=== PATIENT | male | born 1940 | race Caucasian/White ===

== ENCOUNTER 2023-05-21 10:15 | Inpatient (IN) | payer MEDICARE, SELFPAY ==
[2023-05-21] VITALS (14 sets, daily range): BP systolic 107–191; BP diastolic 52–86; PULSE 72–121; RESP 18–33; TEMP 36.6–39.8; O2SAT 92–97; BMI 26.6
--- NOTE | ~2023-05-21 | CT_ITS ---
EXAMINATION: CT CHEST, ABDOMEN AND PELVIS WITH CONTRAST CLINICAL INFORMATION: Abdominal pain. Shortness of breath. COMPARISON: Chest x-ray June 05, 2015 TECHNIQUE: Multidetector volumetric CT imaging of the chest, abdomen and pelvis was obtained after the administration of 85 mL of intravenous Omnipaque 350 without immediate adverse reactions. Coronal and sagittal reformatted images are performed at CT scanner [This CT examination was performed using dose optimization techniques as appropriate, variously including the following: *Automated exposure control *Adjustment of mA and/or kV according to patient size (this includes techniques or standardized protocols for targeted exams where dose is matched to indication/reason for exam; i.e. extremities or head) *Use of iterative reconstruction technique] DLP: 830 mGy-cm. FINDINGS: CT CHEST: Lungs: The lungs are clear with no evidence of inflammation or nodules. Mediastinum: Lobular enlargement of the thyroid which extends substernal bilaterally, right larger than left. No significant lymphadenopathy. Calcified lymph nodes in the pretracheal retrovascular space and right hilum consistent with old granulomatous disease. Heart size is normal. No pericardial effusion. There are vascular calcifications of aorta. No aneurysm of aorta. Pleura: There is no pleural effusion. No pleural mass or thickening. Axilla: No lymphadenopathy. CT ABDOMEN AND PELVIS: Liver, Gallbladder and Biliary Tree: The liver is normal in size, shape, and attenuation. No focal hepatic lesion or biliary ductal dilatation is present. Tiny peripheral calcification at the fundus of the gallbladder appears unremarkable although gallbladder could be small stones. No edema around the gallbladder. No bile duct dilatation. Pancreas: No acute change of the pancreas. No mass. No pancreatic duct dilatation. Spleen: Spleen normal in size and contour. No focal lesion. Adrenal Glands: Left adrenal nodule measuring 1.8 cm. Density measurement on postcontrast imaging 74 Hounsfield units 1 cm right adrenal nodule. Density measurement of 65 Hounsfield units. Kidneys and Ureters: 1 mm nonobstructive stone lower pole right kidney. 3 mm nonobstructive stone upper pole left kidney. No ureteral calculi. No hydronephrosis. Small cortical hypodensity lower pole left kidney likely renal cysts. No follow-up imaging is recommended for simple renal cyst. Bladder: Unremarkable. Gastrointestinal Tract: There are scattered diverticula of the colon. There is no diverticulitis. There is no bowel wall thickening /edema. There is no bowel obstruction. There is a moderate volume of stool in the colon. The appendix is nonvisualized . The small bowel loops are unremarkable. The stomach is normal. There is no hiatal hernia. Mesentery: No focal inflammation. No free fluid. No free air. Abdominal Wall: Fat-containing bilateral inguinal hernia. Lymph Nodes: Normal. Vascular: Vascular calcification of aorta and iliac arteries. No aneurysm. Pelvic Viscera: Prostate enlarged measuring 5.4 cm transverse. Osseous Structures: Unremarkable. CT/CT abdomen pelvis w IV con IMPRESSION: 1. No acute abnormality of the chest, abdomen or pelvis. 2. Bilateral adrenal nodules. These can be further assessed with nonemergent CT adrenal study. 3. Diverticulosis of colon. No acute abnormality of the bowel. 4. Enlarged thyroid. 5. Small nonobstructive bilateral renal stones. 6. Calcified lymph nodes in the mediastinum and right hilum consistent with old granulomatous disease.
--- NOTE | 2023-05-21 10:33 | ECG_ITS ---
Test Reason : WEAKNESS Blood Pressure : / mmHG Vent. Rate : 096 BPM Atrial Rate : 096 BPM P-R Int : 166 ms QRS Dur : 124 ms QT Int : 374 ms P-R-T Axes : 049 -31 015 degrees QTc Int : 472 ms Normal sinus rhythm Left anterior fascicular block Right bundle branch block Abnormal ECG When compared with ECG of 05-JUN-2015 17:29, Heart rate has increased Referred By: Generic ED Physician Electronically Signed By:STEVEN WANG MD
--- NOTE | 2023-05-21 11:06 | ED_ITS ---
HPI - General Adult General Chief complaint: General Medical Stated complaint: CHR UTI,INCR LETHARGY,DIFF URINATION, PER EMS Time Seen by Provider: 05/21/23 10:57 Source: patient and family Mode of arrival: ambulatory Limitations: no limitations History of Present Illness HPI narrative: This is an 82-year-old male history of recurrent UTIs ( hx of infection w/ actinomyces), graves disease, YEHUDA, GERD, cout, hld, bph. HTN, CVA presenting with fatigue, malaise, weakness, lightheadedness/dizziness, diarrhea, abdominal pain x2 days. Patient states that this all started after he had an episode of diarrhea on Saturday completely liquid diarrhea, foul smelling, patient reports he was recently on amoxicillin for a long period of time/6 months due to recurrent urinary infections. Patient reports he just does not feel right. Has subjective fevers and chills. Also reporting some burning with urination and dark urine. Patient reports last night he had an episode of vomiting, and has been having episodes of nausea. Related Data Home Medications Medication Instructions Recorded Confirmed acetaminophen 325 mg tablet 650 mg PO Q6H PRN Pain 05/21/23 05/21/23 aluminum-mag hydroxide-simethicone 10 ml PO QID PRN GI UPSET 05/21/23 05/21/23 200 mg-200 mg-20 mg/5 mL oral susp atorvastatin 20 mg tablet 20 mg PO BEDTIME 05/21/23 05/21/23 fluticasone propionate 50 1 spray intranasal DAILY 05/21/23 05/21/23 mcg/actuation nasal spray,suspension tamsulosin 0.4 mg capsule 0.4 mg PO BEDTIME 05/21/23 05/21/23 warfarin 5 mg tablet (Jantoven) 5 mg PO SUTUWETHFRSA@1800 05/21/23 05/21/23 warfarin 5 mg tablet (Jantoven) 7.5 mg PO MO@1800 05/21/23 05/21/23 Allergies Allergy/AdvReac Type Severity Reaction Status Date / Time No Known Allergies Allergy Unverified 03/31/20 18:59 [No Known Allergies*] N.K.D.A. Allergy Unknown Uncoded 08/12/15 00:00 Review of Systems 2 Review of Systems: Constitutional : No Weight loss, No Fever, No Chills, No Fatigue, No Malaise ENT/Mouth : No sore throat, No Rhinorrhea Eyes: No Eye Pain, No Swelling, No Redness Cardiovascular : No Chest Pain, No SOB, No Dyspnea on Exertion, No Orthopnea, No Edema, No Palpitations Respiratory : No Cough, No Sputum, No Wheezing Gastrointestinal : + Nausea, + Vomiting, No Diarrhea, No Constipation, + abdominal Pain, No Hematochezia, No Melena Genitourinary : No Dysuria, No Urinary Frequency, No Hematuria, Musculoskeletal : No joint pain, No Myalgias, No Joint Swelling Skin : No Skin Lesions, No rash Neuro : No Weakness, No Numbness, No Dizziness, No Headache Psych : No Anxiety/Panic, No Depression All other systems reviewed and are negative Yes all other systems are reviewed and are negative [facility] Past Medical History Attestation statement: The following information was validated with the patient. Source: old records reviewed and nursing notes reviewed Social History Social History Advance Directives: No Advance Directives Information Provided: No Physical Exam ED Vital Signs: Vital Signs - 24 hr 05/21/23 10:28 05/21/23 11:21 05/21/23 12:04 Temperature 99.5 F 97.8 F 103.6 F H Pulse Rate 97 97 95 Respiratory Rate 27 H 29 H 33 H Blood Pressure 169/81 H 133/86 167/75 H Pulse Oximetry 97 95 97 Oxygen Delivery Method Room Air Room Air Room Air 05/21/23 15:04 05/21/23 15:25 05/21/23 15:51 Temperature 98.1 F 98.1 F Pulse Rate 80 79 Respiratory Rate 18 19 Blood Pressure 122/64 120/63 Pulse Oximetry 94 95 Oxygen Delivery Method Room Air Room Air 05/21/23 16:21 05/21/23 16:36 Temperature Pulse Rate 74 72 Respiratory Rate 22 H 24 H Blood Pressure 122/67 116/61 Pulse Oximetry 96 97 Oxygen Delivery Method Room Air Room Air BMI result Body Mass Index 26.6 Patient is noted to be tachypneic, however he is reporting nausea at this time Appearance: Alert.? Oriented X3.? No acute distress.? Head: Normocephalic, atraumatic, no step-offs or deformities Eyes: Pupils equal, round and reactive to light.? Neck: Normal inspection.? Neck supple.? CVS: Normal heart rate and rhythm.? Pulses normal.? Respiratory: No respiratory distress.? Breath sounds normal.? Abdomen: Soft and + diffusely mildly tender .? Skin: Skin warm and dry.? Normal skin color.? Normal skin turgor.? Extremities: No lower extremity edema.? No calf ttp. 5/5 strength to bilateral upper and lower extremities Neuro: Oriented X 3.? No motor deficit.? No sensory deficit. CN 2-12 intact Course Reevaluation(s) Reevaluation #1: Patient's CBC with a leukopenia of 1.2 ( patient states usually around 2) , elevated rbc's 6.05 likely secondary to dehydration/hemoconcentration, hemoglobin of 15.9 hematocrit of 47.6 again likely secondary to hemoconcentration. Low platelets of a 108 noted. Patient is also noted to have low neutrophils 30.0. At this time will place patient on neutropenic precautions. Patient's sodium low 133 likely secondary to poor p.o. intake/dehydration. BUN slightly elevated 23 and creatinine 1.32 likely secondary to poor p.o. intake/dehydration or from GI losses. Urine CT abdomen pelvis and GI studies pending. ANC showing severe neutropenia Time: 11:48 Reevaluation #2: Reached out to hemonc who will consult if needed. Time: 12:11 Reevaluation #3: Delay in obtaining results from imaging secondary to a delay with [facility]. Will continue to monitor Time: 16:12 Additional Reevaluation(s): Sign out to [facility] pending imaging and UA Medications Administered Discontinued Medications Generic Name Dose Route Start Last Admin Trade Name Rayrayq PRN Reason Stop Dose Admin Acetaminophen 975 mg 05/21/23 12:02 05/21/23 12:18 Acetaminophen 325 Mg Tablet PO 05/21/23 12:03 975 mg ONCE ONE Administration Ceftriaxone Sodium 1 gm/ 50 mls @ 100 mls/hr 05/21/23 11:06 05/21/23 15:04 Sodium Chloride IV 05/21/23 11:35 Infused ONCE ONE Infusion Sodium Chloride 1,000 mls @ 999 mls/hr 05/21/23 11:15 05/21/23 15:25 Ns IV 05/21/23 12:15 Not Given .Q1H1M LILI Vancomycin HCl 2,000 mg in 500 mls @ 250 mls/hr 05/21/23 12:02 05/21/23 15:00 Vancomycin/Ns IV 05/21/23 14:01 Infused ONCE ONE Infusion Sodium Chloride 2,526 mls @ 2,526 mls/hr 05/21/23 12:02 05/21/23 15:28 Ns 30 ml/kg infuse over 1 hr (2526 ml) 05/21/23 13:01 Infused IV Infusion .Q1H STA Iohexol 100 ml 05/21/23 12:56 05/21/23 12:57 Iohexol 350 Mg/Ml 100 Ml Infus..Btl IV 05/21/23 12:57 85 ml ONCE ONE Administration Medical Decision Making Medical Decision Making [facility] Narrative: 1135 82 yo male presents w/ weakness, dizziness, diarrrhea, UTI sx X few days worsening. PE diffuse abd tenderness Concerns for UTI versus cystitis versus viral illness vs orthostatic hypotension vs bacterial diarrhea vs cdiff vs dehydration. Will rule out metabolic derangements. Unlikely acute abdomen, obstruction, appendicitis, diverticulitis, pancreatiti, stroke, posterior stroke Plan at this time labs, imaging, urine. At this time infection is suspected will give antibiotics, fluids. Differential Diagnosis Differential Diagnoses: The differential diagnosis associated with the presentation includes Concerns for UTI versus cystitis versus viral illness vs orthostatic hypotension vs bacterial diarrhea vs cdiff vs dehydration. Will rule out metabolic derangements. Unlikely acute abdomen, obstruction, appendicitis, diverticulitis, pancreatiti, stroke, posterior stroke Admission/Observation Consideration of admission/observation: Escalation of care including admission/observation considered Likely Lab Data MDM Lab Attestation statement: I reviewed the patient's lab results. 05/21/23 11:02 05/21/23 11:02 Labs: Lab Results 05/21/23 Range/Units 11:02 WBC 1.2 L (4.8-10.8) X10*3/uL RBC 6.05 H (4.60-5.80) X10*6/uL Hgb 15.9 (14.0-18.0) g/dl Hct 47.6 (42.0-52.0) % MCV 78.7 L (80.0-98.0) fL MCH 26.3 L (27.0-33.0) pg MCHC 33.4 (31.0-36.0) g/dl RDW 14.0 (11.0-16.0) % Plt Count 108 L (160-400) X10*3/uL MPV 8.7 L (9.4-12.4) fL Immature Gran % (Auto) 0.8 H (0.0-0.4) % Neut % (Auto) 30.0 L (45-73) % Lymph % (Auto) 36.7 (20-40) % [place] % (Auto) 32.5 H (2-11) % Eos % (Auto) 0.0 (0-4) % Baso % (Auto) 0.0 (0-2) % Lymph # (Auto) 0.4 L (1.2-4.9) X10*3/uL [place] # (Auto) 0.4 (0.1-1.2) X10*3/uL Eos # (Auto) 0.0 (0.0-0.4) X10*3/uL Baso # (Auto) 0.0 (0.0-0.2) X10*3/uL Abs Immat Gran (auto) 0.01 (0.00-0.03) X10*3/uL Absolute Neuts (auto) 0.4 L (2.0-8.3) x10*3/uL Absolute Nucleated RBC 0.000 (0.0-0.012) X10*3/uL Nucleated RBC % (auto) 0.0 (0.0-0.2) /100WBC Smear Tech's Comments VERIFIED Sodium 133 L (135-145) mmol/L Potassium 4.0 (3.3-5.1) mmol/L Chloride 99 (96-108) mmol/L Carbon Dioxide 23 (22-29) mmol/L Anion Gap 15 (12-20) BUN 23 H (9-16) mg/dL Creatinine 1.32 (0.5-1.4) mg/dL Estim Creat Clear Calc 46.0 Estimated GFR 52 Random Glucose 111 (60-115) mg/dL Lactic Acid 1.5 (0.5-2.0) mmol/L Calcium 9.3 (8.4-10.2) mg/dL Magnesium 2.4 (1.6-2.6) mg/dL Total Bilirubin 0.9 (0.0-1.0) mg/dL AST 18 (5-37) U/L ALT 10 (0-40) U/L Alkaline Phosphatase 133 H (39-117) U/L Total Protein 8.1 H (6.5-8.0) g/dL Albumin 4.1 (3.5-5.0) g/dL Lipase 29 (8-78) U/L Critical Care Time Critical Care Time Critical Care Time: Yes Total Critical Care Time: 45 Attestation: I attest to this time spent taking care of the patient, obtaining history, physical, reviewing labs, imaging, speaking to my attending, speaking to specialist. Discharge Plan Discharge Clinical Impression: Neutropenia, Nausea & vomiting, Acute UTI, Abdominal pain Patient Disposition: Admitted As Inpatient
[2023-05-21 11:08] LABS: Hematocrit 47.6 % (42.0-52.0); Hemoglobin 15.9 g/dl (14.0-18.0); Imm Gran Abs Auto 0.01 X10*3/uL (0.00-0.03); Imm Gran Pct Auto 0.8 % (0.0-0.4); Lymphocytes Absolute Auto 0.4 X10*3/uL (1.2-4.9); Lymphocytes Percent Auto 36.7 % (20-40); MANUAL DIFF FLAG SCAN; Mean Corpuscular HGB Conc 33.4 g/dl (31.0-36.0); Mean Corpuscular Hemoglobin 26.3 pg (27.0-33.0); Mean Corpuscular Volume 78.7 fL (80.0-98.0); Mean Platelet Volume 8.7 fL (9.4-12.4); Monocytes Absolute Auto 0.4 X10*3/uL (0.1-1.2); Monocytes Percent Auto 32.5 % (2-11); Neutrophils Absolute Auto 0.4 x10*3/uL (2.0-8.3); Platelet Count 108 X10*3/uL (160-400); Red Blood Count 6.05 X10*6/uL (4.60-5.80); SCAN SMEAR FLAG 1
[2023-05-21 11:09] LABS: White Blood Count 1.2 X10*3/uL (4.8-10.8)
[2023-05-21 11:17] LABS: Lactic Acid 1.5 mmol/L (0.5-2.0)
[2023-05-21] MEDS: cefTRIAXone sodium 1 GM in 0.9 % Sodium Chloride 50 ML IV (11:18)
[2023-05-21] MEDS: SODIUM CHLORIDE 2526 ML IV (11:20)
[2023-05-21 11:22] LABS: Alanine Aminotransferase 10 U/L (0-40); Albumin Level 4.1 g/dL (3.5-5.0); Alkaline Phosphatase 133 U/L (39-117); Anion Gap 15 (12-20); Aspartate Amino Transferase 18 U/L (5-37); Bilirubin Total 0.9 mg/dL (0.0-1.0); Blood Urea Nitrogen 23 mg/dL (9-16); Calcium 9.3 mg/dL (8.4-10.2); Carbon Dioxide 23 mmol/L (22-29); Chloride 99 mmol/L (96-108); Estimated Glomerular Filt Rate 52; Glucose Random 111 mg/dL (60-115); Magnesium 2.4 mg/dL (1.6-2.6); Sodium 133 mmol/L (135-145); Total Protein 8.1 g/dL (6.5-8.0)
[2023-05-21 11:33] LABS: SLIDE REVIEW VERIFIED
[2023-05-21 11:59] LABS: Lipase 29 U/L (8-78)
[2023-05-21] MEDS: vancomycin/NS 2,000 MG/500 ML PLAST..BAG 250 MG IV (12:14)
[2023-05-21] MEDS: Acetaminophen 325 MG TABLET 975 MG PO (12:18)
[2023-05-21] MEDS: iohexoL 350 MG/ML 100 ML INFUS..BTL IV (12:57)
--- NOTE | 2023-05-21 17:35 | P.HPHOSP_ITS ---
History of Present Illness Date of Service: 05/21/23 Chief Complaint: Weakness, fever An 82 years old male with PMH of HTN, HLD, hx CVA, GERD, recurrent UTIs who presents to the hospital with increase fatigue and weakness. The patient reports that he started to feel ill 2-3 days ago with episodes of watery diarrhea and abdominal pain asscoated with subjective fever but did not measure it at home. reporting dysurea and vomiting the night before as he still have nausea at time of presentation along with worsening fatigue and running out of energy. In ED was found to have fever of 103 and low WBCs of 1.2 which seems to be chronic and under investigation by Hematology at [facility] (I have no access). CT scan negative for any acute findings. Admitted for further evaluation and treatment. Review of Systems 2 Review of Systems: No fever, chills or weakness No chest pain, palpitation No shortness of breath or coughing No abdominal pain, nausea or vomiting but has diarrhea No urinary symptoms No any rash or wounds PMFSH Social History Smoked in Last 30 Days: No Use of substances other than those prescribed or required for medical reasons: No Advance Directives: No Advance Directives Information Provided: No Meds Allergies Allergy/AdvReac Type Severity Reaction Status Date / Time No Known Allergies Allergy Unverified 03/31/20 18:59 [No Known Allergies*] N.K.D.A. Allergy Unknown Uncoded 08/12/15 00:00 Home Medications Medication Instructions Recorded Confirmed Last Taken Type acetaminophen 325 mg tablet 650 mg PO Q6H PRN Pain 05/21/23 05/21/23 Unknown History aluminum-mag hydroxide-simethicone 10 ml PO QID PRN GI UPSET 05/21/23 05/21/23 05/19/23 History 200 mg-200 mg-20 mg/5 mL oral susp atorvastatin 20 mg tablet 20 mg PO BEDTIME 05/21/23 05/21/23 05/20/23 History fluticasone propionate 50 1 spray intranasal DAILY 05/21/23 05/21/23 05/20/23 History mcg/actuation nasal spray,suspension tamsulosin 0.4 mg capsule 0.4 mg PO BEDTIME 05/21/23 05/21/23 05/20/23 History warfarin 5 mg tablet (Jantoven) 5 mg PO SUTUWETHFRSA@1800 05/21/23 05/21/23 05/19/23 History warfarin 5 mg tablet (Jantoven) 7.5 mg PO MO@1800 05/21/23 05/21/23 05/20/23 History Physical Exam 2 Vital Signs and Narrative: Vital Signs: Last Vital Signs Temp 98.1 F 05/21/23 15:25 Pulse 72 05/21/23 16:36 Resp 24 H 05/21/23 16:36 BP 116/61 05/21/23 16:36 Pulse Ox 97 05/21/23 16:36 O2 Del Method Room Air 05/21/23 16:36 BMI result Body Mass Index 26.6 Const: Other: Constitutional : Awake, interactive, not in distress Neck : Normal inspection, Supple Cardiovascular : RRR, no JVP, no lower extremity edema Respiratory : good bilateral air entry, no crackles, wheezes or rhonchi Gastrointestinal: soft, lax, Normal bowel sounds, Non tender Skin : Warm, Dry Neurological : Alert & oriented x3, No focal deficit Results Labs 05/21/23 11:02 05/21/23 11:02 Labs: Laboratory Results - last 24 hr 05/21/23 11:02 MCV 78.7 L MCH 26.3 L MCHC 33.4 RDW 14.0 Plt Count 108 L MPV 8.7 L Immature Gran % (Auto) 0.8 H Neut % (Auto) 30.0 L Lymph % (Auto) 36.7 [place] % (Auto) 32.5 H Eos % (Auto) 0.0 Baso % (Auto) 0.0 Lymph # (Auto) 0.4 L [place] # (Auto) 0.4 Eos # (Auto) 0.0 Baso # (Auto) 0.0 Abs Immat Gran (auto) 0.01 Absolute Neuts (auto) 0.4 L Absolute Nucleated RBC 0.000 Nucleated RBC % (auto) 0.0 Smear Tech's Comments VERIFIED Anion Gap 15 Estim Creat Clear Calc 46.0 Estimated GFR 52 Random Glucose 111 Lactic Acid 1.5 Calcium 9.3 Magnesium 2.4 Total Bilirubin 0.9 AST 18 ALT 10 Alkaline Phosphatase 133 H Total Protein 8.1 H Albumin 4.1 Lipase 29 Imaging Radiologist's Impressions: Impressions Abdomen/Pelvis CT 05/21/23 12:53 IMPRESSION: 1. No acute abnormality of the chest, abdomen or pelvis. 2. Bilateral adrenal nodules. These can be further assessed with nonemergent CT adrenal study. 3. Diverticulosis of colon. No acute abnormality of the bowel. 4. Enlarged thyroid. 5. Small nonobstructive bilateral renal stones. 6. Calcified lymph nodes in the mediastinum and right hilum consistent with old granulomatous disease. Chest CT 05/21/23 12:53 IMPRESSION: 1. No acute abnormality of the chest, abdomen or pelvis. 2. Bilateral adrenal nodules. These can be further assessed with nonemergent CT adrenal study. 3. Diverticulosis of colon. No acute abnormality of the bowel. 4. Enlarged thyroid. 5. Small nonobstructive bilateral renal stones. 6. Calcified lymph nodes in the mediastinum and right hilum consistent with old granulomatous disease. Assessment and Plan (1) Acute UTI: Status: Acute (2) Nausea & vomiting: Status: Acute (3) Neutropenia: Status: Acute Plan An 82 years old male with PMH of HTN, HLD, hx CVA, GERD, recurrent UTIs who presents to the hospital with increase fatigue and weakness. Neutropenic fever No clear source of infection; viral vs bacterial CT scan CAP negative for any acute findings; Adrenal lesion for OP follow up Start broad spectrum antibiotics Vancomycin and Zosyn Pending cultures UA was never done, to check for possible UTI given complaints of dysurea: he finished 6 months course of Amoxicillin in February 2023 (plz check [facility] records) HTN Started on Amlodipine follow closely Chronic anticoagulation, Subratherapeutic INR 3.3 Hold Warfarin today DVYT PPx Warfarin The patient will need at least 2 nights stay for evaluation of neutropenic fever pending blood cultures on IV antibiotics Quality Stroke Does the patient have a stroke diagnosis?: No VTE Prior VTE?: No VTE Risk Level:: Medical - moderate - high VTE Device Contraindication: Treatment Not Indicated VTE Drug Contraindication: N/A - Med Ordered
[2023-05-21 17:52] LABS: INTERNATIONAL NORM RATIO 3.3 (0.9-1.1); Prothrombin Time 39.9 SEC (11.1-13.3)
[2023-05-21] MEDS: Piperacillin Sodium/Tazobactam 3.375 GM in 0.9 % Sodium Chloride 50 ML IV ×2 (18:04→23:11)
[2023-05-21] MEDS: amLODIPine Besylate 5 MG TABLET PO (19:46)
--- NOTE | 2023-05-21 20:28 | PC.NURSE ---
Nursing report given to nurse Faustino. Pt being transferred to room 469.
[2023-05-21] MEDS: Tamsulosin HCL 0.4 MG CAPSULE PO (20:59)
[2023-05-21] MEDS: Atorvastatin Calcium 20 MG TABLET PO (20:59)
[2023-05-21] MEDS: 0.9 % Sodium Chloride Flush 3 ML SYRINGE IVFLUSH (21:00)
[2023-05-22] VITALS (8 sets, daily range): BP systolic 114–150; BP diastolic 50–68; PULSE 80–100; RESP 18–20; TEMP 36.1–38.1; O2SAT 94–97
[2023-05-22] MEDS: vancomycin HCL 750 MG in 0.9 % Sodium Chloride 250 ML 265 MG IV ×2 (00:39→13:42)
[2023-05-22] MEDS: Acetaminophen Supp 650 MG SUPP.RECT PR (00:42)
[2023-05-22 04:30] LABS: HBc Num1 0.32 S/CO (0.00-0.79); HBsAGNum1 0.72 S/CO (0.00-0.99); HIV AB/AG Nonreactive (Nonreactive); HIV Num 1 0.13 S/CO (0.00-0.99); Hepatitis A Antibody IgM 0.22 Index (0-0.79); Hepatitis B Core Antibody Nonreactive (Nonreactive); Hepatitis B Surface Antigen Negative (Negative); ~HepC Num1 0.12 S/CO (0.00-0.79); ~Hepatitis A Antibody IgM Nonreactive (Nonreactive); ~Hepatitis B Surface Antibody NONREACTIVE (Nonreactive); ~Hepatitis C Antibody Nonreactive (Nonreactive)
[2023-05-22] MEDS: Piperacillin Sodium/Tazobactam 3.375 GM in 0.9 % Sodium Chloride 50 ML IV ×3 (06:04→18:43)
--- NOTE | 2023-05-22 06:32 | PHA.MEDREC ---
Pharmacy Consult ? Medication Reconciliation Pharmacy has completed the medication reconciliation. Completed by Milagro Kraus
[2023-05-22 07:30] LABS: INTERNATIONAL NORM RATIO 3.1 (0.9-1.1)
[2023-05-22 07:32] LABS: Hematocrit 38.3 % (42.0-52.0); Mean Corpuscular HGB Conc 33.9 g/dl (31.0-36.0); Mean Corpuscular Hemoglobin 26.6 pg (27.0-33.0); Mean Corpuscular Volume 78.3 fL (80.0-98.0); Mean Platelet Volume 9.3 fL (9.4-12.4); Red Blood Count 4.89 X10*6/uL (4.60-5.80); Red Cell Distribution Width 13.6 % (11.0-16.0)
[2023-05-22 07:35] LABS: Platelet Count 90 X10*3/uL (160-400); White Blood Count 1.2 X10*3/uL (4.8-10.8)
[2023-05-22 07:39] LABS: Appearance Urine Clear; Color Urine Yellow; Glucose Urine UA Negative (Negative); Leukocyte Esterase Urine Negative (Negative); Nitrite Urine Negative (Negative); PH 5.5 (5.0-9.0); Specific Gravity - Urine >= 1.030 (1.005-1.025); UMIC TRIGGER UACC YES; Urine Blood Moderate (2+) (Negative); Urine Ketones Negative (Negative); Urine Protein 30 (1+) mg/dL (Neg-Trace)
[2023-05-22 07:44] LABS: Bacteria Urine None Seen (None Seen); Hyaline Casts Urine 0-2 /LPF (0-2); RBC Urine >20 /HPF (0-2); Squamous Epithelial Cell Urine 0-2 /HPF (0-2); WBC Urine 0-5 /HPF (0-5)
[2023-05-22 07:45] LABS: Anion Gap 11 (12-20); Blood Urea Nitrogen 19 mg/dL (9-16); Calcium 8.2 mg/dL (8.4-10.2); Carbon Dioxide 22 mmol/L (22-29); Chloride 104 mmol/L (96-108); Creatinine Clr Calc Pharmacy 63.3; Estimated Glomerular Filt Rate > 60; Glucose Random 104 mg/dL (60-115); Potassium 3.7 mmol/L (3.3-5.1); Sodium 133 mmol/L (135-145)
[2023-05-22] MEDS: amLODIPine Besylate 5 MG TABLET PO (08:17)
[2023-05-22] MEDS: 0.9 % Sodium Chloride Flush 3 ML SYRINGE IVFLUSH ×2 (08:19→16:38)
--- NOTE | 2023-05-22 09:06 | MHC.CM.PN ---
CM met with Patient at bedside and addressed IMM with him, providing Patient with the original and placing a copy on the chart. 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 Patient is listed as a 2 assist; home self care vs new [facility]NA vs STR pending PT eval is the tentative dc plan. CM has initiated and will follow for dc planning. PCP is Dr. Kamaljit Santiago.
--- NOTE | 2023-05-22 10:20 | MHC.CM.PN ---
Addendum entered by Mima Castelan RN 05/22/23 15:17: [facility] not able to accept, out of network. [facility] has offered a bed pending auth. Discussed with patient and , agreeable to plan. CM will continue to follow. Original Note: Per MD rounds pt not medically cleared for dc. PT is recommending STR. Patient has been to [facility] in the past and prefers to return there. No second choice. Referral placed. CM will continue to follow.
--- NOTE | 2023-05-22 11:13 | P.PNIM_ITS ---
Subjective Subjective Date of Service: 05/22/23 Interval History: weakness, malodorous urine Physical Exam 2 Vital Signs: Vital Signs: Last Vital Signs Temp 99.1 F 05/22/23 08:00 Pulse 80 05/22/23 09:23 Resp 18 05/22/23 08:00 BP 114/59 L 05/22/23 09:23 Pulse Ox 96 05/22/23 09:23 O2 Del Method Room Air 05/22/23 08:00 BMI result Body Mass Index 26.6 General: AO X 3, no acute distress Resp: CTA bilateral, no accessory muscles used CVS: S1,S2,RRR GI: soft, non tender, non distended Neuro: motor grossly intact, alert Psych: appropriate affect, appropriate insight Objective Data Active Medications Acetaminophen (Acetaminophen Supp 650 Mg Supp.Rect) 650 mg [place] Q6H PRN PRN Reason: Pain, Mild (Pain Scale 1-3) Last Admin: 05/22/23 00:42 Dose: 650 mg Documented By: SOFIYA Amlodipine Besylate (Amlodipine Besylate 5 Mg Tablet) 5 mg PO DAILY [facility]; Protocol Last Admin: 05/22/23 08:17 Dose: 5 mg Documented By: DONOVAN Atorvastatin Calcium (Atorvastatin Calcium 20 Mg Tablet) 20 mg PO BEDTIME [facility] Last Admin: 05/21/23 20:59 Dose: 20 mg Documented By: GABINO Fluticasone Propionate (Fluticasone Propionate Nasal 16 Gm [place]) 1 spray NOSTRIL-B DAILY [facility] Last Admin: 05/22/23 08:21 Dose: Not Given Documented By: DONOVAN Non-Admin Reason: Med Not Available Piperacillin Sod/Tazobactam (Sod 3.375 gm/ Sodium Chloride) 50 mls @ 100 mls/hr IV Q6H [facility] Last Infusion: 05/22/23 06:48 Dose: Infused Documented By: SOFIYA Vancomycin HCl 750 mg/ Sodium (Chloride) 265 mls @ 265 mls/hr IV Q12H [facility] Last Infusion: 05/22/23 01:46 Dose: Infused Documented By: SOFIYA Ondansetron HCl (Ondansetron Hcl 4 Mg/2 Ml Vial) 4 mg IVPUSH Q8H PRN PRN Reason: Nausea and Vomiting Pharmacy Consult (Consult Rx Vancomycin Dosing) 1 each MISCELLANE DAILY PRN PRN Reason: Consult order Sodium Chloride (0.9 % Sodium Chloride Flush 3 Ml Syringe) 3 ml IVFLUSH QSHIFT [facility] Last Admin: 05/22/23 08:19 Dose: 3 ml Documented By: DONOVAN Tamsulosin HCl (Tamsulosin Hcl 0.4 Mg Capsule) 0.4 mg PO BEDTIME [facility] Last Admin: 05/21/23 20:59 Dose: 0.4 mg Documented By: GABINO Warfarin Sodium (Warfarin Sodium 5 Mg Tablet) 5 mg PO SUTUWETHFRSA@1800 [facility] Warfarin Sodium (Warfarin Sodium 7.5 Mg Tablet) 7.5 mg PO MO@1800 [facility] Labs 05/22/23 07:06 05/22/23 07:06 Labs: Laboratory Results - last 24 hr 05/21/23 05/21/23 05/22/23 11:02 17:41 07:06 MCV 78.7 L 78.3 L MCH 26.3 L 26.6 L MCHC 33.4 33.9 RDW 14.0 13.6 Plt Count 108 L 90 L MPV 8.7 L 9.3 L Immature Gran % (Auto) 0.8 H Neut % (Auto) 30.0 L Lymph % (Auto) 36.7 [place] % (Auto) 32.5 H Eos % (Auto) 0.0 Baso % (Auto) 0.0 Lymph # (Auto) 0.4 L [place] # (Auto) 0.4 Eos # (Auto) 0.0 Baso # (Auto) 0.0 Abs Immat Gran (auto) 0.01 Absolute Neuts (auto) 0.4 L Absolute Nucleated RBC 0.000 0.000 Nucleated RBC % (auto) 0.0 0.0 Smear Tech's Comments VERIFIED PT 39.9 H 38.0 H INR 3.3 H 3.1 H Anion Gap 15 11 L Estim Creat Clear Calc 46.0 63.3 Estimated GFR 52 > 60 Random Glucose 111 104 Lactic Acid 1.5 Calcium 9.3 8.2 L D Magnesium 2.4 Total Bilirubin 0.9 AST 18 ALT 10 Alkaline Phosphatase 133 H Total Protein 8.1 H Albumin 4.1 Lipase 29 Urine Color Urine Appearance Urine pH Ur Specific [place] Urine Protein Urine Glucose (UA) Urine Ketones Urine Blood Urine Nitrite Ur Leukocyte Esterase Urine RBC Urine WBC Ur Squamous Epith Cells Urine Bacteria Hyaline Casts Hepatitis A IgM Ab Nonreactive Hep Bs Antigen Negative Hep Bs Antibody NONREACTIVE Hep B Core Total Ab Nonreactive Hepatitis C Ab (EIA) Nonreactive HIV 1&2 Ab/P24 Ag 4thGn Nonreactive 05/22/23 07:15 MCV MCH MCHC RDW Plt Count MPV Immature Gran % (Auto) Neut % (Auto) Lymph % (Auto) [place] % (Auto) Eos % (Auto) Baso % (Auto) Lymph # (Auto) [place] # (Auto) Eos # (Auto) Baso # (Auto) Abs Immat Gran (auto) Absolute Neuts (auto) Absolute Nucleated RBC Nucleated RBC % (auto) Smear Tech's Comments PT INR Anion Gap Estim Creat Clear Calc Estimated GFR Random Glucose Lactic Acid Calcium Magnesium Total Bilirubin AST ALT Alkaline Phosphatase Total Protein Albumin Lipase Urine Color Yellow Urine Appearance Clear Urine pH 5.5 Ur Specific [place] >= 1.030 H Urine Protein 30 (1+) H Urine Glucose (UA) Negative Urine Ketones Negative Urine Blood Moderate (2+) H Urine Nitrite Negative Ur Leukocyte Esterase Negative Urine RBC >20 H Urine WBC 0-5 Ur Squamous Epith Cells 0-2 Urine Bacteria None Seen Hyaline Casts 0-2 Hepatitis A IgM Ab Hep Bs Antigen Hep Bs Antibody Hep B Core Total Ab Hepatitis C Ab (EIA) HIV 1&2 Ab/P24 Ag 4thGn Assessment and Plan (1) Acute UTI: Status: Acute Plan 82M PMH htn, hld, history of CVA. gerd, paroxysmal afib on coumadin, chronic leukopenia unkown etiology, graves disease, sleep apnea, bph, recently treat actinomyces uti presented with weakness and malodorous urine neutropenic sepsis source unclear vanc, zosyn, id eval, follow up cultures htn amlodipine paroxysmal afib coumadin history of cva coumadin bph flomax chronic leukopenia outpatinet hematology follow up history of graves not on meds full code reason for continued hospitalization: awaiting defervensence in sepsis with immunocompromised patient Quality Stroke Does the patient have a stroke diagnosis?: No VTE Prior VTE?: No VTE Risk Level:: Medical - moderate - high VTE Device Contraindication: Treatment Not Indicated VTE Drug Contraindication: N/A - Med Ordered
--- NOTE | 2023-05-22 16:18 | W.PM.IDCN ---
History of Present Illness Data of Consult Service Date: 05/22/23 Requesting physician: Anthony Stokes Primary Care Provider: Kamaljit Santiago MD [facility] Reason for consult: leukopenia,fever He presents with weakness and nausea as well as diarrhea for last two days. He denies traveling. He said he went to [facility] two weeks ago and not sure if joking,confused or real. He said he doesnt have diarrhea now. Review of Systems Review of Systems: Yes all other systems are reviewed and are negative [facility] Family History Family history: reviewed and not pertinent Social History Social History Household Members: Spouse Housing: House Do you presently have visiting nurse or other home services: No Patient Tobacco Use Status: Never used Tobacco service: No Meds Allergies Allergy/AdvReac Type Severity Reaction Status Date / Time No Known Allergies Allergy Unverified 03/31/20 18:59 [No Known Allergies*] N.K.D.A. Allergy Unknown Uncoded 08/12/15 00:00 Active Medications: Current Medications Acetaminophen (Acetaminophen Supp 650 Mg Supp.Rect) 650 mg [place] Q6H PRN PRN Reason: Pain, Mild (Pain Scale 1-3) Last Admin: 05/22/23 00:42 Dose: 650 mg Amlodipine Besylate (Amlodipine Besylate 5 Mg Tablet) 5 mg PO DAILY [facility]; Protocol Last Admin: 05/22/23 08:17 Dose: 5 mg Atorvastatin Calcium (Atorvastatin Calcium 20 Mg Tablet) 20 mg PO BEDTIME [facility] Last Admin: 05/21/23 20:59 Dose: 20 mg Fluticasone Propionate (Fluticasone Propionate Nasal 16 Gm [place]) 1 spray NOSTRIL-B DAILY [facility] Last Admin: 05/22/23 08:21 Dose: Not Given Piperacillin Sod/Tazobactam (Sod 3.375 gm/ Sodium Chloride) 50 mls @ 100 mls/hr IV Q6H [facility] Last Infusion: 05/22/23 13:36 Dose: Infused Vancomycin HCl 750 mg/ Sodium (Chloride) 265 mls @ 265 mls/hr IV Q12H [facility] Last Infusion: 05/22/23 15:30 Dose: Infused Ondansetron HCl (Ondansetron Hcl 4 Mg/2 Ml Vial) 4 mg IVPUSH Q8H PRN PRN Reason: Nausea and Vomiting Pharmacy Consult (Consult Rx Vancomycin Dosing) 1 each MISCELLANE DAILY PRN PRN Reason: Consult order Sodium Chloride (0.9 % Sodium Chloride Flush 3 Ml Syringe) [facility] Last Admin: 05/22/23 08:19 Dose: 3 ml Tamsulosin HCl (Tamsulosin Hcl 0.4 Mg Capsule) 0.4 mg PO BEDTIME [facility] Last Admin: 05/21/23 20:59 Dose: 0.4 mg Warfarin Sodium (Warfarin Sodium 5 Mg Tablet) 5 mg PO SUTUWETHFRSA@1800 [facility] Warfarin Sodium (Warfarin Sodium 7.5 Mg Tablet) 7.5 mg PO MO@1800 [facility] Home Medications Medication Instructions Recorded Confirmed Last Taken Type acetaminophen 325 mg tablet 650 mg PO Q6H PRN Pain 05/21/23 05/21/23 Unknown History aluminum-mag hydroxide-simethicone 10 ml PO QID PRN GI UPSET 05/21/23 05/21/23 05/19/23 History 200 mg-200 mg-20 mg/5 mL oral susp atorvastatin 20 mg tablet 20 mg PO BEDTIME 05/21/23 05/21/23 05/20/23 History fluticasone propionate 50 1 spray intranasal DAILY 05/21/23 05/21/23 05/20/23 History mcg/actuation nasal spray,suspension tamsulosin 0.4 mg capsule 0.4 mg PO BEDTIME 05/21/23 05/21/23 05/20/23 History warfarin 5 mg tablet (Jantoven) 5 mg PO SUTUWETHFRSA@1800 05/21/23 05/21/23 05/19/23 History warfarin 5 mg tablet (Jantoven) 7.5 mg PO MO@1800 05/21/23 05/21/23 05/20/23 History Physical Exam Vital Signs: Vital Signs: Last Vital Signs Temp 100.6 F H 05/22/23 15:44 Pulse 81 05/22/23 15:44 Resp 18 05/22/23 15:44 BP 124/50 L 05/22/23 15:44 Pulse Ox 97 05/22/23 15:44 O2 Del Method Room Air 05/22/23 15:44 BMI result Body Mass Index 26.6 Const: General: cooperative HEENT: Head: Yes normal to inspection Face and sinus: Yes normal facial exam Mouth: Normal oral and palatal mucosa present Teeth and gingiva: dentition normal Eyes: General: appearance normal, both eyes and all related structures Pupils: Equal, round and reactive pupils present Resp: Effort & Inspection: normal respiratory effort Cardio: Rate: regular rate Rhythm: regular rhythm GI: Palpation (GI): Soft to palpation and nontender : General: Yes no CVA tenderness Back/Spine/Pelvis: Back: no CVA tenderness Skin: General skin exam: no rashes or lesions noted Neuro: General: moves all extremities Cranial nerves: Yes Equal, round and reactive pupils present Extrem: General: Yes normal to inspection Psych: Appearance: grossly normal Results Labs 05/22/23 07:06 05/22/23 07:06 Labs: Short CBC 05/22/23 Range/Units 07:06 WBC 1.2 L (4.8-10.8) X10*3/uL Hgb 13.0 L (14.0-18.0) g/dl Hct 38.3 L (42.0-52.0) % Plt Count 90 L (160-400) X10*3/uL BMP 05/22/23 07:06 Sodium 133 L Potassium 3.7 Chloride 104 Carbon Dioxide 22 BUN 19 H Creatinine 0.96 Calcium 8.2 L D Urine 05/22/23 Range/Units 07:15 Urine Color Yellow Urine Appearance Clear Urine pH 5.5 (5.0-9.0) Ur Specific [place] >= 1.030 H (1.005-1.025) Urine Protein 30 (1+) H (Neg-Trace) mg/dL Urine Glucose (UA) Negative (Negative) mg/dL Microbiology Microbiology Results: Microbiology 05/21/23 11:08 Blood - Venous Blood Culture - Preliminary No growth after 24 hours. 05/21/23 11:02 Blood - Venous Blood Culture - Preliminary No growth after 24 hours. Assessment and Plan (1) Abdominal pain: Status: Acute (2) Nausea & vomiting: Status: Acute There is no specific pneumonia,abdominal infection or other concern. He has possible viral syndrome. Blood cultures negative so far. Plan Would stop antibiotics if blood cultures negative tomorrow. Check respiratory virus panel.
[2023-05-22] MEDS: Acetaminophen 325 MG TABLET 650 MG PO (16:47)
[2023-05-22] MEDS: Atorvastatin Calcium 20 MG TABLET PO (20:25)
[2023-05-22] MEDS: Tamsulosin HCL 0.4 MG CAPSULE PO (20:25)
[2023-05-22 22:17] LABS: Vancomycin Trough 9.1 mcg/mL (10.0-20.0)
--- NOTE | 2023-05-22 22:27 | HE.PHANOTE ---
re: malick patients level came back tonight at 9.1. Patients indication is sepsis, increased dose to 1250 mg Q12H. will get another level after 2 doses to see how patient dose on dose increase. Next draw tomorrow 05/23 @2129 to ensure enough time for pharmacy to follow. predicted AUC 476
[2023-05-23] VITALS (7 sets, daily range): BP systolic 112–142; BP diastolic 58–75; PULSE 73–106; RESP 16–20; TEMP 36.3–37.2; O2SAT 94–99
[2023-05-23] MEDS: vancomycin HCL 1,250 MG in 0.9 % Sodium Chloride 250 ML 166.67 MG IV ×2 (01:09→13:03)
[2023-05-23] MEDS: Piperacillin Sodium/Tazobactam 3.375 GM in 0.9 % Sodium Chloride 50 ML IV ×5 (01:10→23:02)
[2023-05-23] MEDS: 0.9 % Sodium Chloride Flush 3 ML SYRINGE IVFLUSH ×4 (01:10→21:07)
[2023-05-23 07:16] LABS: Hematocrit 36.6 % (42.0-52.0); Hemoglobin 12.3 g/dl (14.0-18.0); Mean Corpuscular HGB Conc 33.6 g/dl (31.0-36.0); Mean Corpuscular Hemoglobin 26.2 pg (27.0-33.0); Mean Corpuscular Volume 77.9 fL (80.0-98.0); Mean Platelet Volume 9.7 fL (9.4-12.4); Platelet Count 101 X10*3/uL (160-400); Red Cell Distribution Width 13.5 % (11.0-16.0); White Blood Count 1.6 X10*3/uL (4.8-10.8)
[2023-05-23 07:23] LABS: Prothrombin Time 24.9 SEC (11.1-13.3)
[2023-05-23 07:38] LABS: Anion Gap 10 (12-20); Blood Urea Nitrogen 19 mg/dL (9-16); Calcium 8.5 mg/dL (8.4-10.2); Carbon Dioxide 24 mmol/L (22-29); Chloride 104 mmol/L (96-108); Creatinine Clr Calc Pharmacy 61.4; Estimated Glomerular Filt Rate > 60; Glucose Fasting 126 mg/dL (60-99); Potassium 3.2 mmol/L (3.3-5.1); Sodium 135 mmol/L (135-145)
[2023-05-23] MEDS: amLODIPine Besylate 5 MG TABLET PO (08:18)
[2023-05-23 09:27] LABS: Adenovirus PCR Not Detected (Not Detect.); Bordetella parapertussis PCR Not Detected (Not Detect.); Bordetella pertussis PCR Not Detected (Not Detect.); Chlamydia pneumoniae PCR Not Detected (Not Detect.); Coronavirus 229E PCR Not Detected (Not Detect.); Coronavirus HKU1 PCR Not Detected (Not Detect.); Coronavirus NL63 PCR Not Detected (Not Detect.); Coronavirus OC43 PCR Not Detected (Not Detect.); Human metapneumovirus PCR Not Detected (Not Detect.); Influenza A PCR Not Detected (Not Detect.); Influenza B PCR Not Detected (Not Detect.); Mycoplasma pneumoniae PCR Not Detected (Not Detect.); Parainfluenza 1 PCR Not Detected (Not Detect.); Parainfluenza 2 PCR Not Detected (Not Detect.); Parainfluenza 3 PCR Not Detected (Not Detect.); Parainfluenza 4 PCR Not Detected (Not Detect.); RSV PCR Not Detected (Not Detect.); Rhino/Enterovirus PCR Not Detected (Not Detect.)
[2023-05-23 10:45] LABS: SARS-CoV-2 PCR Not Detected (Not Detect.)
--- NOTE | 2023-05-23 10:51 | MHC.CM.PN ---
Patient was re-evaluated by PT, now recommending home with services. This CM discussed with patient and , agreeable to plan. Their 1st choice is [facility], referral sent via [facility]. Per MD rounds, not medically cleared for dc at this time. CM will follow.
--- NOTE | 2023-05-23 11:12 | HO.PM.IMPN ---
Subjective Subjective Date of Service: 05/23/23 Interval History: fever last night Physical Exam Vital Signs: Vital Signs: Last Vital Signs Temp 97.4 F 05/23/23 11:10 Pulse 106 H 05/23/23 11:10 Resp 20 05/23/23 11:10 BP 112/60 05/23/23 11:10 Pulse Ox 99 05/23/23 11:10 O2 Del Method Room Air 05/23/23 11:10 BMI result Body Mass Index 26.6 Const: General: cooperative HEENT: Head: Yes normal to inspection Face and sinus: Yes normal facial exam Mouth: Normal oral and palatal mucosa present Teeth and gingiva: dentition normal Eyes: General: appearance normal, both eyes and all related structures Pupils: Equal, round and reactive pupils present Resp: Effort & Inspection: normal respiratory effort Cardio: Rate: regular rate Rhythm: regular rhythm GI: Palpation (GI): Soft to palpation and nontender : General: Yes no CVA tenderness Back/Spine/Pelvis: Back: no CVA tenderness Skin: General skin exam: no rashes or lesions noted Neuro: General: moves all extremities Cranial nerves: Yes Equal, round and reactive pupils present Extrem: General: Yes normal to inspection Psych: Appearance: grossly normal Objective Data Active Medications Acetaminophen (Acetaminophen 325 Mg Tablet) 650 mg PO Q4H PRN PRN Reason: pian or fever Last Admin: 05/22/23 16:47 Dose: 650 mg Documented By: FRANKLYN Amlodipine Besylate (Amlodipine Besylate 5 Mg Tablet) 5 mg PO DAILY [facility]; Protocol Last Admin: 05/23/23 08:18 Dose: 5 mg Documented By: IKKA Atorvastatin Calcium (Atorvastatin Calcium 20 Mg Tablet) 20 mg PO BEDTIME [facility] Last Admin: 05/22/23 20:25 Dose: 20 mg Documented By: FRANKLYN Fluticasone Propionate (Fluticasone Propionate Nasal 16 Gm [place]) 1 spray NOSTRIL-B DAILY [facility] Last Admin: 05/23/23 08:18 Dose: Not Given Documented By: KIKA Non-Admin Reason: Patient Refused Piperacillin Sod/Tazobactam (Sod 3.375 gm/ Sodium Chloride) 50 mls @ 100 mls/hr IV Q6H [facility] Last Infusion: 05/23/23 06:06 Dose: Infused Documented By: BESS Vancomycin HCl 1,250 mg/ (Sodium Chloride) 250 mls @ 166.667 mls/hr IV Q12H [facility] Last Infusion: 05/23/23 02:41 Dose: Infused Documented By: BESS Ondansetron HCl (Ondansetron Hcl 4 Mg/2 Ml Vial) 4 mg IVPUSH Q8H PRN PRN Reason: Nausea and Vomiting Pharmacy Consult (Consult Rx Vancomycin Dosing) 1 each MISCELLANE DAILY PRN PRN Reason: Consult order Sodium Chloride (0.9 % Sodium Chloride Flush 3 Ml Syringe) 3 ml IVFLUSH QSHIFT [facility] Last Admin: 05/23/23 08:18 Dose: 3 ml Documented By: KIKA Tamsulosin HCl (Tamsulosin Hcl 0.4 Mg Capsule) 0.4 mg PO BEDTIME [facility] Last Admin: 05/22/23 20:25 Dose: 0.4 mg Documented By: FRANKLYN Warfarin Sodium (Warfarin Sodium 5 Mg Tablet) 5 mg PO SUTUWETHFRSA@1800 [facility] Last Admin: 05/23/23 10:26 Dose: Not Given Documented By: KIKA Non-Admin Reason: not my patient during this time Warfarin Sodium (Warfarin Sodium 7.5 Mg Tablet) 7.5 mg PO MO@1800 [facility] Labs 05/23/23 06:52 05/23/23 06:52 Labs: Laboratory Results - last 24 hr 05/21/23 05/22/23 05/22/23 11:02 19:11 21:37 MCV MCH MCHC RDW Plt Count MPV Absolute Nucleated RBC Nucleated RBC % (auto) Smear Path Review SEE NOTE PT INR Anion Gap Estim Creat Clear Calc Estimated GFR Fasting Glucose Calcium Magnesium Vancomycin Trough 9.1 L Respiratory Panel Wallace See Note Adenovirus (Rapid PCR) Not Detected B.pert (TEM-PCR) Not Detected B.parapertussis DNA PCR Not Detected C. pneumoniae DNA (PCR) Not Detected Coronavirus OC43 (PCR) Not Detected Coronavirus HKU1 (PCR) Not Detected Coronavirus 229E (PCR) Not Detected Coronavirus NL63 (PCR) Not Detected Human Metapneumovir PCR Not Detected Influenza A (RT-PCR) Not Detected Influenza B (RT-PCR) Not Detected M. pneumoniae (PCR) Not Detected Parainfluenza 1 (PCR) Not Detected Parainfluenza 2 (PCR) Not Detected Parainfluenza 3 (PCR) Not Detected Parainfluenza 4 (PCR) Not Detected RSV (PCR) Not Detected Entero/Rhino (PCR) Not Detected SARS-CoV-2 RNA (RT-PCR) Not Detected 05/23/23 06:52 MCV 77.9 L MCH 26.2 L MCHC 33.6 RDW 13.5 Plt Count 101 L MPV 9.7 Absolute Nucleated RBC 0.000 Nucleated RBC % (auto) 0.0 Smear Path Review PT 24.9 H D INR 2.0 H Anion Gap 10 L Estim Creat Clear Calc 61.4 Estimated GFR > 60 Fasting Glucose 126 H Calcium 8.5 Magnesium 2.0 Vancomycin Trough Respiratory Panel [place] Adenovirus (Rapid PCR) B.pert (TEM-PCR) B.parapertussis DNA PCR C. pneumoniae DNA (PCR) Coronavirus OC43 (PCR) Coronavirus HKU1 (PCR) Coronavirus 229E (PCR) Coronavirus NL63 (PCR) Human Metapneumovir PCR Influenza A (RT-PCR) Influenza B (RT-PCR) M. pneumoniae (PCR) Parainfluenza 1 (PCR) Parainfluenza 2 (PCR) Parainfluenza 3 (PCR) Parainfluenza 4 (PCR) RSV (PCR) Entero/Rhino (PCR) SARS-CoV-2 RNA (RT-PCR) Microbiology Microbiology Results: Microbiology 05/21/23 11:08 Blood Culture - Preliminary Blood - Venous No growth after 24 hours. 05/21/23 11:02 Blood Culture - Preliminary Blood - Venous No growth after 24 hours. Assessment and Plan (1) Acute UTI: Status: Acute Plan 82M PMH htn, hld, history of CVA. gerd, paroxysmal afib on coumadin, chronic leukopenia unkown etiology, graves disease, sleep apnea, bph, recently treat actinomyces uti presented with weakness and malodorous urine neutropenic sepsis source unclear vanc, zosyn, id following culture negative to date resp viral panel negative htn amlodipine paroxysmal afib coumadin history of cva coumadin bph flomax chronic leukopenia outpatient hematology follow up history of graves not on meds full code reason for continued hospitalization: awaiting defervensence in sepsis with immunocompromised patient Quality Stroke Does the patient have a stroke diagnosis?: No VTE Prior VTE?: No VTE Risk Level:: Medical - moderate - high VTE Device Contraindication: Treatment Not Indicated VTE Drug Contraindication: N/A - Med Ordered
[2023-05-23] MEDS: Potassium Chloride ER 20 MEQ TAB.ER.PRT 40 MEQ PO (13:03)
[2023-05-23] MEDS: Warfarin Sodium 5 MG TABLET PO (17:00)
[2023-05-23] MEDS: Tamsulosin HCL 0.4 MG CAPSULE PO (21:06)
[2023-05-23] MEDS: Atorvastatin Calcium 20 MG TABLET PO (21:06)
[2023-05-23 21:20] LABS: CDiff Gene PCR NEGATIVE (Negative)
[2023-05-23 22:15] LABS: Vancomycin Random 10.9 mcg/mL (15-20)
--- NOTE | 2023-05-23 22:23 | HE.PHANOTE ---
re: RAGHAV patients level came back at 10.9. yesterday patient was increased from 750 mg to 1250 mg Q12H. patients level only increased by 1.8. patients indicationi s sepsis, level should be higher per indication. plan is to increase dose to 1500 mg Q12H and get a level after 2 doses. next draw tomorrow 05/24 @2130, predicted AUC 512
[2023-05-23] MEDS: vancomycin HCL 1,500 MG in 0.9 % Sodium Chloride 500 ML 333.33 MG IV (23:40)
[2023-05-24 04:00] VITALS: BP 127/66; PULSE 71; RESP 20; TEMP 36.9; O2SAT 97
[2023-05-24] MEDS: Piperacillin Sodium/Tazobactam 3.375 GM in 0.9 % Sodium Chloride 50 ML IV (05:24)
[2023-05-24 07:46] LABS: INTERNATIONAL NORM RATIO 1.7 (0.9-1.1); Prothrombin Time 20.6 SEC (11.1-13.3)
[2023-05-24 07:48] LABS: Creatinine Clr Calc Pharmacy 75.1; Estimated Glomerular Filt Rate > 60
[2023-05-24 08:00] VITALS: BP 124/66; PULSE 67; RESP 16; TEMP 36.4; O2SAT 96
[2023-05-24] MEDS: 0.9 % Sodium Chloride Flush 3 ML SYRINGE IVFLUSH (09:01)
[2023-05-24] MEDS: amLODIPine Besylate 5 MG TABLET PO (09:01)
--- NOTE | 2023-05-24 09:17 | MHC.CM.PN ---
[facility] UPDATED IN [facility]. CASE MANAGEMENT FOLLOWING FOR PROGRESS TOWARDS DISCHARGE
[2023-05-24 10:57] VITALS: BP 124/66; PULSE 67; O2SAT 96
[2023-05-24 11:25] VITALS: BP 111/56; PULSE 75; RESP 20; TEMP 36.4; O2SAT 97
--- NOTE | 2023-05-24 11:39 | PM.DS ---
DS: Providers Provider Date of Service: 05/24/23 Date of admission: 05/21/23 17:30 Primary care physician: Kamaljit Santiago MD Consults: 05/22/23 07:59 Consult to Infectious Diseases Routine Consulting Provider: [facility] Infectious Disease Reason for consultation: neutropenic fever, history of actinomyces DS: Diagnosis Discharge Diagnosis (1) Acute UTI: Status: Acute DS: Summary Hospital Course Hospital Course: from initial hpi: 82 years old male with PMH of HTN, HLD, hx CVA, GERD, recurrent UTIs who presents to the hospital with increase fatigue and weakness. The patient reports that he started to feel ill 2-3 days ago with episodes of watery diarrhea and abdominal pain asscoated with subjective fever but did not measure it at home. reporting dysurea and vomiting the night before as he still have nausea at time of presentation along with worsening fatigue and running out of energy. In ED was found to have fever of 103 and low WBCs of 1.2 which seems to be chronic and under investigation by Hematology at [facility] (I have no access). CT scan negative for any acute findings. Admitted for further evaluation and treatment. hospital course: Patient was admitted for neutropenic sepsis. His source was unclear. His cultures were negative as was respiratory viral panel. UA was negative and chest x-ray was unremarkable. He was empirically treated with vancomycin and Zosyn. He was seen by infectious disease recommended discontinue antibiotics. Fever subsided. This was possibly viral illness. He will be discharged home and should monitor fevers at home. He will follow-up with Hematology as outpatient for further workup for his chronic neutropenia. For hypertension was continue on amlodipine. For paroxysmal atrial fibrillation was continued on Coumadin. For history of CVA was continue on Coumadin. For BPH was continue on Flomax. For history of Graves he is no longer on medication. Patient is feeling better will be discharged home with visiting services, okay to start on 05/27/2023. Time Attestation Discharge coordination time: Greater than 30 minutes Quality: Safe Use of Opioids Does Pt have an Active Cancer Diagnosis on the Problem List?: No Quality: Stroke Does the patient have a stroke diagnosis?: No Physical Exam Vital Signs: Vital Signs: Last Vital Signs Temp 97.5 F 05/24/23 11:25 Pulse 75 05/24/23 11:25 Resp 20 05/24/23 11:25 BP 111/56 L 05/24/23 11:25 Pulse Ox 97 05/24/23 11:25 O2 Del Method Room Air 05/24/23 11:25 BMI result Body Mass Index 26.6 Const: General: cooperative HEENT: Head: Yes normal to inspection Face and sinus: Yes normal facial exam Mouth: Normal oral and palatal mucosa present Teeth and gingiva: dentition normal Eyes: General: appearance normal, both eyes and all related structures Pupils: Equal, round and reactive pupils present Resp: Effort & Inspection: normal respiratory effort Cardio: Rate: regular rate Rhythm: regular rhythm GI: Palpation (GI): Soft to palpation and nontender : General: Yes no CVA tenderness Back/Spine/Pelvis: Back: no CVA tenderness Skin: General skin exam: no rashes or lesions noted Neuro: General: moves all extremities Cranial nerves: Yes Equal, round and reactive pupils present Extrem: General: Yes normal to inspection Psych: Appearance: grossly normal DS: Data Data Completed and Pending Labs on day of discharge: Laboratory Results - last 24 hr 05/23/23 05/23/23 05/24/23 19:34 21:25 06:52 Hold Purple Top PT 20.6 H INR 1.7 H Creatinine 0.81 Estim Creat Clear Calc 75.1 Estimated GFR > 60 Random Vancomycin 10.9 L C. difficile Tox B Gene NEGATIVE 05/24/23 07:24 Hold Purple Top SEE NOTE PT INR Creatinine Estim Creat Clear Calc Estimated GFR Random Vancomycin C. difficile Tox B Gene Preliminary micro results at discharge 05/21/23 11:08 Blood Culture - Preliminary Blood - Venous No growth after 48 hours. 05/21/23 11:02 Blood Culture - Preliminary Blood - Venous No growth after 48 hours. Discharge Plan Discharge Anticipated Discharge Date/Time: 05/24/23 11:37 Patient Disposition: Home Health Service Discharge Diagnosis: fever Referrals: Kamaljit Santiago MD [Primary Care Provider] - 1 Week Discharge Medications: Continued atorvastatin 20 mg tablet 20 mg PO BEDTIME tamsulosin 0.4 mg capsule 0.4 mg PO BEDTIME warfarin [Jantoven] 5 mg tablet 5 mg PO SUTUWETHFRSA@1800 warfarin [Jantoven] 5 mg tablet 7.5 mg PO MO@1800 fluticasone propionate 50 mcg/actuation [place],Suspension 1 spray INTRANASAL DAILY Rx Instructions: administer into each nostril acetaminophen 325 mg Tablet 650 mg PO Q6H PRN (Reason: Pain) alum-mag hydroxide-simeth 200-200-20 mg/5 mL Suspension 10 ml PO QID PRN (Reason: GI UPSET) Discharge Orders: Discharge Order (Routine); Ordered 05/24/23 Ordered By: Anthony Stokes Diet: Advance to usual diet Activity on Discharge: As tolerated Stand Alone Forms: Patient Portal Discharge page Care Plan Goals: recovery Health Concerns: fevers Plan of Treatment: monitor for further fevers off abx, follow up hematology Assessment: see above
--- NOTE | 2023-05-24 11:42 | P.F2F_ITS ---
Service Date Service Date: 05/24/23 Encounter Date of encounter: 05/24/23 Reasons for Services Signs and symptoms assessed: weakness Reason for correction: monitoring of PT/INR (next inr 05/27/23), medication management, medication treatment and teach disease management Homebound: Leaving the home is medically contraindicated at this time without the asist of a device and/or another person due th the listed conditions above and below. Reason homebound: unsteady gait / fall risk Certification: Based on the above findings, I certify that this patient is confined to the home and needs intermittent correction care, physical therapy and/or speech therapy, or continues to need occupational therapy. The patient is under my care, and I have initiated the establishment of the plan of care. The patient will be followed by a physician who will periodically review the plan of care. Time Spent With Patient Time: Total time managing care of this patient today ____ minutes.
--- NOTE | 2023-05-24 12:06 | MHC.CM.PN ---
PLAN IS HOME TODAY WITH NEW [facility] SERVICES FOR RN SKILLS AND HOME P.T. IMM 05/22 PREVIOUSLY COMPLETED
[2023-05-24 13:19] LABS: Adenovirus F 40/41 Not Detected (Not Detect.); Astrovirus Not Detected (Not Detect.); Campylobacter Not Detected (Not Detect.); Cryptosporidium Not Detected (Not Detect.); Cyclospora cayetanensis Not Detected (Not Detect.); E. coli EAEC Not Detected (Not Detect.); E. coli EPEC Not Detected (Not Detect.); E. coli ETEC Not Detected (Not Detect.); E. coli STEC Not Detected (Not Detect.); Entamoeba histolytica Not Detected (Not Detect.); Giardia lamblia Not Detected (Not Detect.); Norovirus GI/GII Not Detected (Not Detect.); Plesiomonas shigelloides Not Detected (Not Detect.); Rotavirus A Not Detected (Not Detect.); Salmonella Not Detected (Not Detect.); Sapovirus Not Detected (Not Detect.); Shigella sp./EIEC Not Detected (Not Detect.); Vibrio Not Detected (Not Detect.); Vibrio Cholerae Not Detected (Not Detect.); Yersinia enterocolitica Not Detected (Not Detect.)
== END 2023-05-24 14:11 | disposition home health service (06) | DRG 872 ==
LOC: HO.ED 12:10 → HO.EDOVER 17:49 → HO.IMC 19:17
PROVIDERS: Physician Assistant; Admitting Provider Student in an Organized Health Care Education/Training Program; Emergency Provider Student in an Organized Health Care Education/Training Program; PCP Family Medicine; Visit Provider Internal Medicine
DX: A41.9 Sepsis, unspecified organism (principal); N39.0 Urinary tract infection, site not specified; E86.0 Dehydration; I10 Essential (primary) hypertension; D70.9 Neutropenia, unspecified; R50.81 Fever presenting with conditions classified elsewhere; I48.0 Paroxysmal atrial fibrillation; N40.0 Benign prostatic hyperplasia without lower urinary tract symptoms; R79.1 Abnormal coagulation profile; Z20.822 Contact with and (suspected) exposure to COVID-19; Z86.73 Personal history of transient ischemic attack (TIA), and cerebral infarction without residual deficits; Z87.440 Personal history of urinary (tract) infections; Z79.01 Long term (current) use of anticoagulants; Z79.51 Long term (current) use of inhaled steroids; Z79.899 Other long term (current) drug therapy
CPT/HCPCS: 36415; 71260; 74177; 80048; 80053; 80202; 81001; 82565; 83605; 83690; 83735; 85025; 85027; 85610; 86704; 86706; 86709; 86803; 87040; 87340; 87389; 87493; 87507; 87633; 93005; 97116; 97162; 97530; 99285; J0696; J2543; J3370; J3371; Q9967

== ENCOUNTER → 2023-05-21 17:30 | Outpatient (BNV) | payer MEDICARE, SELFPAY | PROVIDERS: Admitting Provider Student in an Organized Health Care Education/Training Program; Emergency Provider Student in an Organized Health Care Education/Training Program; PCP Family Medicine; Visit Provider Student in an Organized Health Care Education/Training Program | DX: N39.0 Urinary tract infection, site not specified (principal) | CPT/HCPCS: 99223; 99232; 99233; 99239; G0180 ==

== ENCOUNTER → 2023-05-21 17:30 | Outpatient (BNV) | payer MEDICARE, SELFPAY | PROVIDERS: Admitting Provider Student in an Organized Health Care Education/Training Program; Emergency Provider Student in an Organized Health Care Education/Training Program; PCP Family Medicine; Visit Provider Internal Medicine | DX: R10.9 Unspecified abdominal pain (principal); R11.2 Nausea with vomiting, unspecified | CPT/HCPCS: 99222 ==

== ENCOUNTER 2024-04-06 12:31 | Inpatient (IN) | payer MEDICARE, SELFPAY ==
--- NOTE | ~2024-04-06 | CT_ITS ---
EXAMINATION: CT HEAD WITHOUT CONTRAST CLINICAL INFORMATION: Mental status change COMPARISON: CT head June 06, 2015 dictated report. Images not available for review. TECHNIQUE: Contiguous axial imaging was performed from the skull base to vertex without intravenous administration of contrast. Coronal and sagittal reformatted images are performed at the CT scanner. This CT examination was performed using dose optimization techniques as appropriate, variously including the following: *Automated exposure control *Adjustment of mA and/or kV according to patient size (this includes techniques or standardized protocols for targeted exams where dose is matched to indication/reason for exam; i.e. extremities or head) *Use of iterative reconstruction technique DLP: 934 mGy-cm. FINDINGS: There is no evidence of acute intracranial hemorrhage or territorial infarction. No abnormal mass-effect or midline shift is seen. [place] to white matter differentiation is well preserved. No extra-axial fluid collections are identified. There is generalized global volume loss. There is moderate prominence of the ventricles and the sulci . There is mild hypodensity of the periventricular white matter due to chronic small vessel ischemic disease. There are vascular calcifications of the internal carotid arteries bilaterally. There is no osseous abnormality. The mastoid air cells and visualized portions of the paranasal sinuses are well-aerated. CT/CT head/brain wo IV con IMPRESSION: No acute intracranial pathology. Electronically signed by: Hiro Caruso MD 04/06/2024 03:22 PM EDT
--- NOTE | ~2024-04-06 | MR_ITS ---
EXAMINATION: MR BRAIN WITHOUT CONTRAST CLINICAL INFORMATION: Weakness COMPARISON: Limited comparison with prior MRI brain June 06, 2015 at time of dictation as only the axial T2 FLAIR and MPGR sequences are available in PACS. CT head April 06, 2024 TECHNIQUE: MRI of the brain was obtained using routine sequences without contrast. FINDINGS: No acute infarct. Increased scattered foci of susceptibility artifact within the left frontal periventricular white matter, bilateral temporal lobes including the left hippocampus, presumably chronic microhemorrhages. The predominantly peripheral/juxtacortical location raises the possibility of amyloid angiopathy. No extra-axial fluid collection. Progressive moderate global cerebral volume loss. Increased patchy and confluent T2 FLAIR hyperintense foci in the subcortical and periventricular white matter, deep figueroa nuclei, and brainstem, nonspecific but presumably reflective of advanced chronic microangiopathy. Chronic lacunar infarct in the ventral right thalamus with gliosis extending into the right cerebral peduncle and chronic lacunar infarct within the left dorsal external capsule. New linear gliosis in the left cerebellar white matter. No mass lesion, mass effect, or herniation pattern. Normal intracranial arterial and dural venous sinus flow voids. Normal appearance of the midline structures. Increased AP dimension of the globes compatible with axial myopia with concurrent temporal staphylomata. Mild mucosal disease in the right frontal sinus and ethmoid air cells. Small retention cyst in the right maxillary sinus. Large right and small left mastoid effusion. Trapped secretions in the bilateral petrous apices. Partially imaged cervical spondylosis. MR/MR head/brain wo con IMPRESSION: No acute intracranial abnormality. Increased chronic microhemorrhages throughout the supratentorial compartment in a predominantly juxtacortical location that may reflect amyloid angiopathy. Increased moderate global cerebral volume loss and advanced white matter disease presumably reflective of chronic microangiopathy. Chronic lacunar infarcts in the ventral right thalamus and left dorsal external capsule. Electronically signed by: Liz Miller MD 04/10/2024 07:36 PM EDT
--- NOTE | ~2024-04-06 | XR_ITS ---
EXAMINATION: XR CHEST CLINICAL INFORMATION: Cough. Shortness of breath. COMPARISON: Chest CT dated April 08, 2024. Chest x-ray dated April 06, 2024. TECHNIQUE: Portable AP view of the chest was obtained. FINDINGS: The study is limited by portable technique and low lung volumes. Examination demonstrates focal right upper lobe airspace disease, grossly similar compared with April 08 on April 06, 2024. Mild diffuse interstitial prominence. It is uncertain whether this represents artifactual crowding of the interstitium related to suboptimal inspiration versus true infiltrate. No effusion or pneumothorax is seen. The cardiac silhouette is suboptimally evaluated. Aorta is mildly atherosclerotic and uncoiled, suggesting hypertension. Degenerative changes of the shoulders and spine. XR/XR chest 1V IMPRESSION: Findings as above. Electronically signed by: Edmond Anderson MD 04/13/2024 08:59 AM EDT RP
--- NOTE | ~2024-04-06 | XR_ITS ---
EXAMINATION: XR CHEST CLINICAL INFORMATION: Shortness of breath COMPARISON: Chest CT May 2023 TECHNIQUE: Frontal view of the chest was obtained. FINDINGS: There is a patchy opacity in the right midlung new compared to prior CT. Left lung clear. Calcification of the dorsal aorta. Cardiomediastinal silhouette otherwise unremarkable. 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 XR/XR chest 1V IMPRESSION: Patchy opacity in the right midlung new compared to prior CT. This could reflect evolving pneumonia. Electronically signed by: Anderson Ramirez MD 04/06/2024 03:10 PM EDT
--- NOTE | ~2024-04-06 | CT_ITS ---
EXAMINATION: CT ANGIOGRAM OF THE CHEST WITH AND WITHOUT CONTRAST (CT PULMONARY ANGIOGRAM FOR PE) CLINICAL INFORMATION: hypoxia, sob COMPARISON: No pertinent prior studies are available for comparison. TECHNIQUE: Prior to contrast administration, noncontrast localization images were obtained. Subsequently, multidetector volumetric imaging was performed from the thoracic inlet to the pubic symphysis through the chest, abdomen, and pelvis following the administration of 65 mL Omnipaque 350 intravenous contrast. No contrast reaction reported Sagittal, coronal, and MIP oblique sagittal (through the chest only) reformatted images were obtained on the CT workstation, uploaded to PACS, and reviewed. This CT examination was performed using dose optimization techniques as appropriate, variously including the following: *Automated exposure control *Adjustment of mA and/or kV according to patient size (this includes techniques or standardized protocols for targeted exams where dose is matched to indication/reason for exam; i.e. extremities or head) *Use of iterative reconstruction technique Total exam dose-length product: 276 mGy-cm FINDINGS: QUALITY OF STUDY/CONTRAST BOLUS: Satisfactory. PULMONARY ARTERIES: No central or segmental pulmonary emboli. CORONARY ARTERY CALCIUM: Mild THORACIC AORTA: No aneurysm or dissection. LUNG: Local dense consolidation is seen in the inferior right upper lobe corresponding to the abnormal chest radiograph. No suspicious lung masses are seen. PLEURA: Small right-sided pleural effusion is present. MEDIASTINUM: There is an enlarged thyroid which extends down into the mediastinum to the level of the aortic arch. Similar findings can be seen on the 05/21/2023 study.. Normal heart size. No pericardial effusion. No hilar or mediastinal lymphadenopathy. No evidence of septal bowing or right heart strain. CHEST WALL/AXILLA: No axillary or internal mammary lymphadenopathy. OSSEOUS STRUCTURES: No acute or suspicious osseous abnormality. Degenerative changes are present in the spine. VISUALIZED ABDOMEN: There is a small hiatal hernia present. Calcifications are seen in the gallbladder which could represent stones. There is a 2 cm left adrenal nodule that measures 19 Hounsfield units and is indeterminate. No interval change when compared to 05/21/2023. No significant findings in the upper abdomen. CT/CT angio chest PE protocol IMPRESSION: 1. No evidence of pulmonary emboli. 2. Right upper lobe pneumonia with small right pleural effusion. 3. Incidental note made of enlarged thyroid, small hiatal hernia, possible gallstones and indeterminate 2 cm left adrenal nodule. MRI could always be performed for diagnosis. However, this is unchanged in nearly one year's time which speaks towards probable benign adenoma. VTE: negative. Fleischner guidelines were followed. Electronically signed by: Bucky Hyde MD 04/08/2024 06:57 PM EDT RP
--- NOTE | 2024-04-06 12:48 | ECG_ITS ---
Test Reason : SOB Blood Pressure : / mmHG Vent. Rate : 096 BPM Atrial Rate : 096 BPM P-R Int : 188 ms QRS Dur : 122 ms QT Int : 358 ms P-R-T Axes : 030 -21 006 degrees QTc Int : 452 ms Normal sinus rhythm Right bundle branch block Abnormal ECG When compared with ECG of 21-MAY-2023 10:32, No significant change was found Referred By: Mallory Yoder Electronically Signed By:DEIRDRE LARA
[2024-04-06 12:51] VITALS: BP 133/76; BP 147/83; PULSE 110; RESP 20; TEMP 36.8; O2SAT 95; O2SAT 97; BMI 52.5
[2024-04-06 13:15] LABS: Basophils Percent Auto 0.7 % (0-2); Hematocrit 40.6 % (42.0-52.0); Hemoglobin 13.7 g/dl (14.0-18.0); Imm Gran Abs Auto 0.01 X10*3/uL (0.00-0.03); Imm Gran Pct Auto 0.7 % (0.0-0.4); Lymphocytes Absolute Auto 0.8 X10*3/uL (1.2-4.9); Lymphocytes Percent Auto 52.3 % (20-40); MANUAL DIFF FLAG SCAN; Mean Corpuscular HGB Conc 33.7 g/dl (31.0-36.0); Mean Corpuscular Hemoglobin 26.7 pg (27.0-33.0); Mean Platelet Volume 9.2 fL (9.4-12.4); Monocytes Absolute Auto 0.3 X10*3/uL (0.1-1.2); Monocytes Percent Auto 19.5 % (2-11); Neutrophils Absolute Auto 0.4 x10*3/uL (2.0-8.3); Neutrophils Percent Auto 26.8 % (45-73); Platelet Count 198 X10*3/uL (160-400); Red Blood Count 5.14 X10*6/uL (4.60-5.80); Red Cell Distribution Width 13.1 % (11.0-16.0); SCAN SMEAR FLAG 1
[2024-04-06 13:18] LABS: White Blood Count 1.5 X10*3/uL (4.8-10.8)
[2024-04-06 13:27] LABS: INTERNATIONAL NORM RATIO 3.6 (0.9-1.1); Prothrombin Time 42.6 SEC (10.9-12.4)
[2024-04-06 13:30] LABS: Partial Thromboplastin Time 43.6 SEC (26.0-36.8)
--- NOTE | 2024-04-06 13:33 | ED_ITS ---
HPI - Altered Mental Status General Chief Complaint: Altered Mental Status Stated Complaint: STS RECENT PNA,NO IMPROVEMENT PER EMS Time Seen by Provider: 04/06/24 13:13 Source: patient, family ( ) and EMS Mode of arrival: EMS Limitations: altered mental status History of Present Illness ED Provider: DR. Hathaway HPI narrative: 83-year-old male brought in by his for change of mental status. Patient normally lives at home with his functional and living independently since this morning patient has been disoriented and confused as per , patient recently had a persistent coughing was seen at [facility] in clinic diagnosed with right lobe pneumonia patient was started on Z-Fernandez and amoxicillin finish the antibiotic course today, patient also was tested for whooping cough as per reportedly was negative. also reported decreased p.o. intake and decreased urine output. During the interview patient is disoriented and non historian. Related Data Home Medications ?Medication ?Instructions ?Recorded ?Confirmed acetaminophen 325 mg tablet 650 mg PO Q6H PRN Pain 05/21/23 05/21/23 aluminum-mag hydroxide-simethicone 10 ml PO QID PRN GI UPSET 05/21/23 05/21/23 200 mg-200 mg-20 mg/5 mL oral susp atorvastatin 20 mg tablet 20 mg PO BEDTIME 05/21/23 05/21/23 fluticasone propionate 50 1 spray intranasal DAILY 05/21/23 05/21/23 mcg/actuation nasal spray,suspension tamsulosin 0.4 mg capsule 0.4 mg PO BEDTIME 05/21/23 05/21/23 warfarin 5 mg tablet (Jantoven) 5 mg PO SUTUWETHFRSA@1800 05/21/23 05/21/23 warfarin 5 mg tablet (Jantoven) 7.5 mg PO MO@1800 05/21/23 05/21/23 Previous Rx's ?Medication ?Instructions ?Recorded walker (Ultra-Light Rollator [facility] [place]) #1 ea 05/24/23 Allergies Allergy/AdvReac Type Severity Reaction Status Date / Time No Known Allergies Allergy Verified 04/06/24 12:56 [No Known Allergies*] N.K.D.A. Allergy Unknown Unknown Uncoded 04/06/24 12:56 Review of Systems 2 Review of Systems: All other systems are reviewed and are negative Constitutional: Reports as per HPI and Reports no additional constitutional complaints Eyes: Reports as per HPI and Reports no additional eye complaints Reports system reviewed and no additional complaints, except as documented Cardiovascular: Reports as per HPI and Reports no additional cardiovascular complaints Respiratory: Reports as per HPI and Reports no additional respiratory complaints Gastrointestinal: Reports as per HPI and Reports no additional gastrointestinal complaints Genitourinary: Reports no additional female genitourinary complaints Musculoskeletal: Reports no additional musculoskeletal complaints Skin/Breast: Reports system reviewed and no additional complaints, except as docu Psychiatric: Reports no additional psychiatric complaints Endocrine: Reports no additional endocrine complaints Hematologic/Lymphatic: Reports no additional hematologic/lymphatic complaints Allergic/Immunologic: Reports no additional allergic/immunologic complaints Reports system reviewed and no additional complaints, except as documented and Reports Abnormal speech present [facility] Social History Social History Household Members: Spouse Housing: House Do you presently have visiting nurse or other home services: No Patient Tobacco Use Status: Never used Tobacco Advance Directives: No Advance Directives Information Provided: Yes Do you have a plan to hurt others: No Plan service: No Physical Exam ED Vital Signs: Vital Signs - 24 hr 04/06/24 12:51 04/06/24 15:01 Temperature 98.3 F Pulse Rate 110 H 98 Respiratory Rate 20 18 Blood Pressure 147/83 H 154/78 H Pulse Oximetry 95 95 Oxygen Delivery Method Room Air Room Air BMI result Body Mass Index 52.5 Vital signs have been reviewed and appear to be correct. Blood pressure elevated. Heart rate normal. Respiratory rate normal. Temperature normal. Oxygen saturation normal. Appearance: Alert. Disoriented x3 No acute distress. Head: Normal external exam. Normocephalic. Atraumatic. No Wilkins signs noted. No raccoon eyes noted Eyes: PERRLA. EOMI. Conjunctiva and sclera normal. Eyelids normal. ENT: TM's Normal. Pharynx normal. Uvula midline. Moist mucous membranes. No trismus noted. No drooling noted. No muffled voice noted. Neck: Normal inspection. Neck supple. FROM. No adenopathy. Thyroid Normal. No meningeal signs. No neck mass noted. CVS: Normal heart rate and rhythm. Heart sound normal. No murmurs noted. Pulses normal throughout. Respiratory: No respiratory distress. Painless inspiration. Breath sounds normal. No wheezes/rales/rhonchi noted. Chest nontender. No accessory muscle usage noted or decreased air movement noted. Abdomen: Soft and nontender. Bowel sounds normal in all 4 quadrants. No distention noted. No organomegaly noted. No visible injury noted. Back: No CVA tenderness. Full range of motion noted. Skin: Skin warm and dry. Normal skin color. Normal skin turgor. No rashes/lesions/lacerations noted. Extremities: No lower extremity edema. Extremities exhibit normal range of motion. Extremities nontender. Neuro: Cranial nerve exam: II-XII are grossly intact No motor deficit. No sensory deficit. Reflexes normal. NIH Stroke Scale Time: 15:57 Level of Consciousness: Alert Level of Consciousness Questions: Answers both questions correctly Level of Consciousness Commands: Performs both tasks correctly Best Gaze: Normal Visual: No visual loss Facial Palsy: Normal Motor Arm (Right): No drift Motor Arm (Left): No drift Motor Leg (Right): No drift Motor Leg (Left): No drift Limb Ataxia: Absent Sensory: Normal Best Language: No aphasia Dysarthia: Normal Extinction and Inattention: No abnormality Score: 0 Course Reevaluation(s) Reevaluation #1: 83-year-old male with change mental status and persistent pneumonia, heart rate above 90 otherwise no other criteria for SIRS or sepsis was chronic thrombocytopenia, chest x-ray is consistent with right middle lobe pneumonia, no lactic acidosis, negative head CT and normal neuro exam, patient is more responsive after fluid and antibiotic in the emergency department with notable improvement of his mental status, continue with ceftriaxone and doxycycline IV. Patient is not to walk to the bathroom and keep wetting himself is requesting Collado caheter placement will consider it for skin integrity. Time: 15:55 Medications Administered Discontinued Medications Generic Name Dose Route Start Last Admin Trade Name Freq PRN Reason Stop Dose Admin Ceftriaxone Sodium 1 gm/ 50 mls @ 100 mls/hr 04/06/24 13:38 04/06/24 14:40 Sodium Chloride IV 04/06/24 14:07 Infused ONCE ONE Infusion Sodium Chloride 1,000 mls @ 999 mls/hr 04/06/24 13:39 04/06/24 15:14 Ns IV 04/06/24 14:39 Infused .Q1H1M ONE Infusion Medical Decision Making Differential Diagnosis Differential Diagnoses: The differential diagnosis associated with the presentation includes ( pneumonia, pneumothorax, pleural effusion, severe anemia, electrolyte derangement, intracranial bleed, stroke, ischemic stroke, UTI, YESSY.) Admission/Observation Consideration of admission/observation: Escalation of care including admission/observation considered Consult Healthcare Provider Management of the patient was discussed with: Hospitalist ( Dr. Correia) Lab Data MDM Lab Attestation statement: I reviewed the patient's lab results. 04/06/24 13:06 04/06/24 13:06 Labs: Lab Results 04/06/24 04/06/24 Range/Units 13:06 13:54 WBC 1.5 L (4.8-10.8) X10*3/uL RBC 5.14 (4.60-5.80) X10*6/uL Hgb 13.7 L (14.0-18.0) g/dl Hct 40.6 L (42.0-52.0) % MCV 79.0 L (80.0-98.0) fL MCH 26.7 L (27.0-33.0) pg MCHC 33.7 (31.0-36.0) g/dl RDW 13.1 (11.0-16.0) % Plt Count 198 D (160-400) X10*3/uL MPV 9.2 L (9.4-12.4) fL Immature Gran % (Auto) 0.7 H (0.0-0.4) % Neut % (Auto) 26.8 L (45-73) % Lymph % (Auto) 52.3 H (20-40) % [place] % (Auto) 19.5 H (2-11) % Eos % (Auto) 0.0 (0-4) % Baso % (Auto) 0.7 (0-2) % Lymph # (Auto) 0.8 L (1.2-4.9) X10*3/uL [place] # (Auto) 0.3 (0.1-1.2) X10*3/uL Eos # (Auto) 0.0 (0.0-0.4) X10*3/uL Baso # (Auto) 0.0 (0.0-0.2) X10*3/uL Abs Immat Gran (auto) 0.01 (0.00-0.03) X10*3/uL Absolute Neuts (auto) 0.4 L (2.0-8.3) x10*3/uL Absolute Nucleated RBC 0.000 (0.0-0.012) X10*3/uL Nucleated RBC % (auto) 0.0 (0.0-0.2) /100WBC Smear Tech's Comments VERIFIED PT 42.6 H (10.9-12.4) SEC INR 3.6 H (0.9-1.1) APTT 43.6 H (26.0-36.8) SEC Sodium 134 L (135-145) mmol/L Potassium 4.1 (3.3-5.1) mmol/L Chloride 101 (96-108) mmol/L Carbon Dioxide 26 (22-29) mmol/L Anion Gap 11 L (12-20) BUN 19 H (9-16) mg/dL Creatinine 1.09 (0.5-1.4) mg/dL Estim Creat Clear Calc 87.8 Estimated GFR > 60 Random Glucose 136 H (60-115) mg/dL Lactic Acid 1.3 (0.5-2.0) mmol/L Calcium 9.6 D (8.4-10.2) mg/dL Magnesium 2.1 (1.6-2.6) mg/dL Total Bilirubin 0.7 (0.0-1.0) mg/dL AST 28 (5-37) U/L ALT 24 (0-40) U/L Alkaline Phosphatase 127 H (39-117) U/L Troponin I High Sens 11.6 (<3.5-35.0) ng/L Total Protein 7.5 (6.5-8.0) g/dL Albumin 3.3 L (3.5-5.0) g/dL Influenza Type A (PCR) NEGATIVE (Negative) Influenza Type B (PCR) NEGATIVE (Negative) RSV RNA Qual (PCR) NEGATIVE (Negative) SARS-CoV-2 RNA (RT-PCR) NEGATIVE (Negative) Independent Interpretation I performed an independent interpretation of an: Plain X-Ray ( Chest:Patchy opacity in the right midlung new compared to prior CT. This could reflect evolving pneumonia. ) and CT Scan ( head: No acute intracranial pathology.) Radiology Impression Discussion of test interpretation with radiology: I have reviewed the radiologist's reading. Discharge Plan Discharge Clinical Impression: Leukocytopenia, Altered mental status, Pneumonia Patient Disposition: Admitted As Inpatient Print Language: Yoruba
[2024-04-06 13:35] LABS: Alanine Aminotransferase 24 U/L (0-40); Albumin Level 3.3 g/dL (3.5-5.0); Alkaline Phosphatase 127 U/L (39-117); Anion Gap 11 (12-20); Aspartate Amino Transferase 28 U/L (5-37); Bilirubin Total 0.7 mg/dL (0.0-1.0); Blood Urea Nitrogen 19 mg/dL (9-16); Calcium 9.6 mg/dL (8.4-10.2); Carbon Dioxide 26 mmol/L (22-29); Chloride 101 mmol/L (96-108); Creatinine Clr Calc Pharmacy 87.8; Estimated Glomerular Filt Rate > 60; Glucose Random 136 mg/dL (60-115); Magnesium 2.1 mg/dL (1.6-2.6); Potassium 4.1 mmol/L (3.3-5.1); Sodium 134 mmol/L (135-145); Total Protein 7.5 g/dL (6.5-8.0)
[2024-04-06 13:36] LABS: Troponin-I High Sensitivity 11.6 ng/L (<3.5-35.0)
[2024-04-06 13:49] LABS: SLIDE REVIEW VERIFIED
[2024-04-06 13:58] LABS: Influenza A PCR NEGATIVE (Negative); Influenza B PCR NEGATIVE (Negative); Resp Syncy Virus RNA Qual PCR NEGATIVE (Negative); SARS COV2 PCR INHOUSE NEGATIVE (Negative)
[2024-04-06] MEDS: cefTRIAXone sodium 1 GM in 0.9 % Sodium Chloride 50 ML IV (14:07)
[2024-04-06] MEDS: 0.9 % Sodium Chloride 1,000 ML 999 ML IV (14:08)
[2024-04-06 14:23] LABS: Lactic Acid 1.3 mmol/L (0.5-2.0)
[2024-04-06 15:01] VITALS: BP 154/78; PULSE 98; RESP 18; O2SAT 95
[2024-04-06] MEDS: Doxycycline Hyclate 100 MG in 0.9 % Sodium Chloride 250 ML 166.67 MG IV (16:42)
--- NOTE | 2024-04-06 18:07 | P.HPHOSP_ITS ---
History of Present Illness Date of Service: 04/06/24 Attending physician on admission: Sowmya Correia Chief Complaint: sob ,cough 83y/o M with PMH of HTN, HLD, hx CVA, GERD, recurrent UTIs, in addition told that patient was supposed to get treatment for hyperactive thyroid(have not gone for it yet)-patient is poor historian history was taken with the help of his : Patient had respiratory symptoms on last admission stay and went to [facility] where he was diagnosed with pneumonia and was given p.o. antibiotics patient subsequently got generalized weak, still has shortness of breath and productive cough and also feel more confused. Patient tried Z-Fernandez and amoxicillin out patiently did not work as per the -still has symptoms so decided to bring to the hospital. In addition has poor oral intake. Denies any headaches or weakness or numbness or chest pain. Has cough with whitish sputum, denies any sick contacts. Has chronic leukopenia and thrombocytopenia. Chest x-ray shows possible right mid lung pneumonia. CT head and negative. BMP has hyponatremia, TSH is 0.1. ekg-nsr Review of Systems 2 Review of Systems: As above. Yes all other systems are reviewed and are negative PMFSH Social History Household Members: Spouse Housing: House Do you presently have visiting nurse or other home services: No Patient Tobacco Use Status: Never used Tobacco Advance Directives: No Advance Directives Information Provided: Yes Do you have a plan to hurt others: No Plan service: No Meds Allergies Allergy/AdvReac Type Severity Reaction Status Date / Time No Known Allergies Allergy Verified 04/06/24 12:56 [No Known Allergies*] N.K.D.A. Allergy Unknown Unknown Uncoded 04/06/24 12:56 Active Medications: Current Medications Acetaminophen (Acetaminophen 325 Mg Tablet) 650 mg PO Q6H PRN PRN Reason: Pain, Mild (Pain Scale 1-3), fever or headache Calcium Carbonate (Calcium Carbonate 750 Mg Tab.Chew) 750 mg PO Q4H PRN PRN Reason: Heartburn Azithromycin 500 mg/ Sodium (Chloride) 250 mls @ 125 mls/hr IV DAILY LILI Ceftriaxone Sodium 2 gm/ (Sodium Chloride) 50 mls @ 100 mls/hr IV Q24H LILI Magnesium Hydroxide (Milk Of Magnesia 30 Ml Oral.Susp) 30 ml PO DAILY PRN PRN Reason: Constipation Melatonin (Melatonin 3 Mg Tablet) 6 mg PO BEDTIME PRN PRN Reason: Insomnia Sodium Chloride (0.9 % Sodium Chloride Flush 3 Ml Syringe) 3 ml IVFLUSH QSHIFT [facility] Home Medications ?Medication ?Instructions ?Recorded ?Confirmed ?Last Taken ?Type acetaminophen 325 mg tablet 650 mg PO Q6H PRN Pain 05/21/23 05/21/23 Unknown History aluminum-mag hydroxide-simethicone 10 ml PO QID PRN GI UPSET 05/21/23 05/21/23 05/19/23 History 200 mg-200 mg-20 mg/5 mL oral susp atorvastatin 20 mg tablet 20 mg PO BEDTIME 05/21/23 05/21/23 05/20/23 History fluticasone propionate 50 1 spray intranasal DAILY 05/21/23 05/21/23 05/20/23 History mcg/actuation nasal spray,suspension tamsulosin 0.4 mg capsule 0.4 mg PO BEDTIME 05/21/23 05/21/23 05/20/23 History warfarin 5 mg tablet (Jantoven) 5 mg PO SUTUWETHFRSA@1800 05/21/23 05/21/23 05/19/23 History warfarin 5 mg tablet (Jantoven) 7.5 mg PO MO@1800 05/21/23 05/21/23 05/20/23 History Physical Exam 2 Vital Signs and Narrative: Vital Signs: Last Vital Signs Temp 98.3 F 04/06/24 12:51 Pulse 98 04/06/24 15:01 Resp 18 04/06/24 15:01 BP 154/78 H 04/06/24 15:01 Pulse Ox 95 04/06/24 15:01 O2 Del Method Room Air 04/06/24 15:01 BMI result Body Mass Index 52.5 Appearance: Alert.? Oriented X2.? sob Eyes: Pupils equal, round and reactive to light.? Sclera nonicteric.? ENT: Pharynx normal.? Moist mucous membranes. cvs: rrr, [id number] , no murmur res:air entry fair,somewhat dimnished right >left. abd: no rebound or guarding ,nt, bs present. ext pulses present , no cyanosis. neuro: nonfocal. Results Labs 04/06/24 13:06 04/06/24 13:06 Labs: Laboratory Results - last 24 hr 04/06/24 04/06/24 13:06 13:54 MCV 79.0 L MCH 26.7 L MCHC 33.7 RDW 13.1 Plt Count 198 D MPV 9.2 L Immature Gran % (Auto) 0.7 H Neut % (Auto) 26.8 L Lymph % (Auto) 52.3 H [place] % (Auto) 19.5 H Eos % (Auto) 0.0 Baso % (Auto) 0.7 Lymph # (Auto) 0.8 L [place] # (Auto) 0.3 Eos # (Auto) 0.0 Baso # (Auto) 0.0 Abs Immat Gran (auto) 0.01 Absolute Neuts (auto) 0.4 L Absolute Nucleated RBC 0.000 Nucleated RBC % (auto) 0.0 Smear Tech's Comments VERIFIED PT 42.6 H INR 3.6 H APTT 43.6 H Anion Gap 11 L Estim Creat Clear Calc 87.8 Estimated GFR > 60 Random Glucose 136 H Lactic Acid 1.3 Calcium 9.6 D Magnesium 2.1 Total Bilirubin 0.7 AST 28 ALT 24 Alkaline Phosphatase 127 H Troponin I High Sens 11.6 Total Protein 7.5 Albumin 3.3 L TSH 0.10 L Influenza Type A (PCR) NEGATIVE Influenza Type B (PCR) NEGATIVE RSV RNA Qual (PCR) NEGATIVE SARS-CoV-2 RNA (RT-PCR) NEGATIVE Imaging Radiologist's Impressions: Impressions Chest X-Ray 04/06/24 12:48 IMPRESSION: Patchy opacity in the right midlung new compared to prior CT. This could reflect evolving pneumonia. Electronically signed by: Anderson Ramirez MD 04/06/2024 03:10 PM EDT RP Head CT 04/06/24 13:23 IMPRESSION: No acute intracranial pathology. Electronically signed by: Hiro Caruso MD 04/06/2024 03:22 PM EDT RP Assessment and Plan (1) Pneumonia: Qualifiers: Pneumonia type: due to unspecified organism Laterality: right Lung location: middle lobe of lung Qualified Code(s): J18.9 - Pneumonia, unspecified organism Status: Acute (2) Altered mental status: Qualifiers: Altered mental status type: unspecified Qualified Code(s): R41.82 - Altered mental status, unspecified Status: Acute Plan 82M PMH htn, hld, history of CVA. gerd, paroxysmal afib on coumadin, chronic leukopenia unkown etiology, graves disease, sleep apnea, bph, come s with possible penumonia. Pneumonia with leukopenia(? Chronic neutropenia)-possible neutropenic sepsis. Failed outpatient therapy Tachycardia tachypnea, lactic acid 1.3, blood cultures sent Procalcitonin level added. Will start the patient on vanco ,Zosyn, azithromycin Id evaluation toxic metabolic encephalopathy-multifactorial, prerenal azotemia, poor oral intake, dehydration. ct head negative Sats fine, ammonia level added Continue IV will lactic ringer med reconcillition is pending bu htn amlodipine paroxysmal afib supratherapeuinr hold coumadin for today history of cva as above coumadin bph flomax chronic leukopenia outpatient hematology follow up history of graves not on meds- tsh low , free t4 pending Morbid obesity: Encouraged to lose weight cutdown calories. full code Patient will benefit from 2 midnight stay considering pneumonia, toxic metabolic encephalopathy- awaiting defervensence in sepsis with immunocompromised patient- need IV antibiotics, blood cultures, id evaluation, close monitoring of mental status. Above management discussed with the patient's in detail length at bedside, time spent 70 minute. Quality Stroke Does the patient have a stroke diagnosis?: No VTE Prior VTE?: No VTE Risk Level:: Medical - moderate - high VTE Device Contraindication: N/A - Device Ordered VTE Drug Contraindication: N/A - Med Ordered
[2024-04-06 18:27] LABS: Free T4 (Free Thyroxine) 1.21 ng/dL (0.71-1.85)
--- NOTE | 2024-04-06 18:31 | PHA.MEDREC ---
Addendum entered by Dc Odom [facility] 04/06/24 18:49: MED REC CHECKED BY [facility] Original Note: Pharmacy Consult ? Medication Reconciliation Pharmacy has completed the medication reconciliation. Confirmed medications with patient at bedside. Patient was able to confirmed her husbands Warfarin 5mg tab and states starting last Saturday patient was starting to take 7.5mg on Fridays and 5 mg every other day but states she still gave her 5mg and was going to give him 7.5mg starting this Saturday. The patient also states he has not taken his Tamsulosin 0.4mg tab since -Saturday due to him not feeling well. The also states her has been having a hard time swallowing pills recently so he has been chewing all her medications. She states her took his mediations last last night.
[2024-04-06] MEDS: Lactated Ringers 1,000 ML 100 ML IVCONT (19:01)
[2024-04-06] MEDS: Piperacillin Sodium/Tazobactam 4.5 GM in 0.9 % Sodium Chloride 100 ML IV ×2 (19:04→23:30)
[2024-04-06 19:06] LABS: Ammonia 28 umol/L (13-55)
[2024-04-06] MEDS: vancomycin/NS 2,000 MG/500 ML PLAST..BAG 250 MG IV (19:50)
[2024-04-06 19:52] VITALS: BP 149/69; PULSE 90; RESP 18; TEMP 37.2; O2SAT 92
[2024-04-06 19:59] LABS: Procalcitonin 0.04 ng/mL
[2024-04-06 21:26] LABS: Appearance Urine Cloudy; Color Urine Orange; Leukocyte Esterase Urine Trace (Negative); Nitrite Urine Negative (Negative); PH 6.5 (5.0-9.0); UMIC TRIGGER UACC YES; Urine Blood Large (3+) (Negative); Urine Ketones Negative (Negative)
[2024-04-06 21:30] VITALS: BP 156/71; PULSE 89; RESP 18; TEMP 36.5; O2SAT 95
[2024-04-06 21:41] LABS: Bacteria Urine None Seen (None Seen); Hyaline Casts Urine 0-2 /LPF (0-2); RBC Urine >20 /HPF (0-2); Squamous Epithelial Cell Urine 0-2 /HPF (0-2); WBC Urine 0-5 /HPF (0-5)
--- NOTE | 2024-04-06 22:42 | PHA.PROG ---
Admission Date/Time: April 06, 2024 17:02 Indication: RESPIRATORY Weight in k.6 kg Adjusted body weight in Kg: [place] body weight in Kg: Obesity Dosing Indication % IBW: Serum Creatinine - Last 168 Hours 04/06/24 13:06 Creatinine 1.09 Estimated CrCl and GFR - Last 168 Hours 04/06/24 13:06 Estim Creat Clear Calc 87.8 Estimated GFR > 60 Vancomycin Loading Dose: 2000 MG Current Vancomycin Dosing Regimen: 1250 MG ONCE Vancomycin Monitoring using AUC goal of 400 - 600 range with trough as surrogate marker: SME=259 TROUGH=12 Date and Time for next Vancomycin Level to be drawn: 04/07/24 @1800 Pharmacist Comments on Vancomycin Plan: doing a one time dose of 1250 mg to reach optimum auc faster, may decrease dose to 1000 mg q12h after random on 04/07/24 @1800 Vancomycin dosing will take advantage of [employer] as a clinical decision support tool that uses Bayesian modeling to calculate individual patient's pharmacokinetic parameters and forecast the patient's drug concentration time course with the target goal AUC 24 range of 400 - 600 mg/L/hr.
--- NOTE | 2024-04-06 23:02 | PC.NURSE ---
VMT alerted this nurse of patient trying to get out of bed. pt found with both IV lines pulled out as well as condom catheter. pt stating he needs to see his . confused at baseline per physician H&P. pt cleaned up and new access obtained. pt denies pain, discomfort, and SOB. call bravo in lap, semi fowlers position. plan of care is ongoing
[2024-04-06 23:12] VITALS: BP 156/74; PULSE 76; RESP 20; TEMP 37.6; O2SAT 95
[2024-04-07] MEDS: guaiFEN/Codeine SF 200/20/10ML 10 ML LIQUID PO ×2 (01:09→21:22)
[2024-04-07 03:00] VITALS: BP 135/63; PULSE 83; RESP 20; TEMP 36.4; O2SAT 91
[2024-04-07 04:00] VITALS: BMI 24.2
[2024-04-07] MEDS: OLANZapine 10 MG VIAL 5 MG IM (05:18)
[2024-04-07] MEDS: Piperacillin Sodium/Tazobactam 4.5 GM in 0.9 % Sodium Chloride 100 ML IV ×3 (05:32→18:03)
[2024-04-07 07:01] LABS: Creatinine Clr Calc Pharmacy 72.2; Estimated Glomerular Filt Rate > 60
[2024-04-07 07:40] VITALS: BP 139/70; PULSE 79; RESP 18; TEMP 37.2; O2SAT 96
[2024-04-07] MEDS: 0.9 % Sodium Chloride Flush 3 ML SYRINGE IVFLUSH ×2 (08:29→21:09)
[2024-04-07] MEDS: Lactated Ringers 1,000 ML 100 ML IVCONT ×2 (08:29→18:27)
[2024-04-07] MEDS: vancomycin HCL 1,250 MG in 0.9 % Sodium Chloride 250 ML 166.67 MG IV ×2 (08:30→21:02)
[2024-04-07 10:00] LABS: Adenovirus PCR Not Detected (Not Detect.); Bordetella parapertussis PCR Not Detected (Not Detect.); Bordetella pertussis PCR Not Detected (Not Detect.); Chlamydia pneumoniae PCR Not Detected (Not Detect.); Coronavirus 229E PCR Not Detected (Not Detect.); Coronavirus HKU1 PCR Not Detected (Not Detect.); Coronavirus NL63 PCR Not Detected (Not Detect.); Coronavirus OC43 PCR Not Detected (Not Detect.); Human metapneumovirus PCR Not Detected (Not Detect.); Influenza A PCR Not Detected (Not Detect.); Influenza B PCR Not Detected (Not Detect.); Mycoplasma pneumoniae PCR Not Detected (Not Detect.); Parainfluenza 1 PCR Not Detected (Not Detect.); Parainfluenza 2 PCR Not Detected (Not Detect.); Parainfluenza 3 PCR Not Detected (Not Detect.); Parainfluenza 4 PCR Not Detected (Not Detect.); RSV PCR Not Detected (Not Detect.); Rhino/Enterovirus PCR Not Detected (Not Detect.)
[2024-04-07] MEDS: Azithromycin 500 MG in 0.9 % Sodium Chloride 250 ML 125 MG IV (10:21)
[2024-04-07 10:39] LABS: SARS-CoV-2 PCR Not Detected (Not Detect.)
[2024-04-07 10:55] LABS: MRSA Nasal PCR NEGATIVE (Negative); SA Nasal PCR NEGATIVE (Negative)
--- NOTE | 2024-04-07 11:02 | MHC.CM.PN ---
IMM 04/07/24, PT W/PNA/AMS, CM MET W/PT AND AT BEDSIDE, PT'S AMY SIGNED IMM AND ANSWERED ALL QUESTIONS, PT LIVES WWIFE WHO CARES FOR PT, PT DOES NOT USE ANY DME OR HOME SERVICES AND PT'S REQUESTING [facility] FOR HOME SERVICES THEY WERE HAPPY W/THEM IN THE PAST. PCP/HCP ON FILE VERIFIED
[2024-04-07 11:17] VITALS: BP 131/61; PULSE 84; RESP 16; TEMP 37.3; O2SAT 96
--- NOTE | 2024-04-07 11:44 | P.PNIM_ITS ---
Subjective Subjective Date of Service: 04/07/24 Interval History: somnolent this morning d/t zyprexa in the earlier in the morning for agitation Physical Exam 2 Vital Signs: Vital Signs: Last Vital Signs Temp 99.2 F 04/07/24 11:17 Pulse 84 04/07/24 11:17 Resp 16 04/07/24 11:17 BP 131/61 04/07/24 11:17 Pulse Ox 96 04/07/24 11:17 O2 Del Method Room Air 04/07/24 11:17 BMI result Body Mass Index 24.2 Const: Other: General: alert, falls asleep easily Resp: CTA bilateral CVS: S1,S2,RRR GI: +BS, NT, no distention Skin: No rash Neuro: motor grossly intact Psych: appropriate affect Objective Data Active Medications Acetaminophen (Acetaminophen 325 Mg Tablet) 650 mg PO Q6H PRN PRN Reason: Pain, Mild (Pain Scale 1-3), fever or headache Calcium Carbonate (Calcium Carbonate 750 Mg Tab.Chew) 750 mg PO Q4H PRN PRN Reason: Heartburn Guaifenesin/Codeine Phosphate (Guaifen/Codeine Sf 200/20/10ml 10 Ml Liquid) 10 ml PO Q4H PRN PRN Reason: Cough Last Admin: 04/07/24 01:09 Dose: 10 ml Documented By: KATRINA Azithromycin 500 mg/ Sodium (Chloride) 250 mls @ 125 mls/hr IV DAILY [facility] Last Admin: 04/07/24 10:21 Dose: 125 mls/hr Documented By: IRVING Lactated Ringer's (Lr) 1,000 mls @ 100 mls/hr IVCONT .Q10H [facility] Last Admin: 04/07/24 08:29 Dose: 100 mls/hr Documented By: IRVING Piperacillin Sod/Tazobactam (Sod 4.5 gm/ Sodium Chloride) 100 mls @ 200 mls/hr IV Q6H [facility] Last Infusion: 04/07/24 06:15 Dose: Infused Documented By: KATRINA Magnesium Hydroxide (Milk Of Magnesia 30 Ml Oral.Susp) 30 ml PO DAILY PRN PRN Reason: Constipation Melatonin (Melatonin 3 Mg Tablet) 6 mg PO BEDTIME PRN PRN Reason: Insomnia Pharmacy Consult (Consult Rx Vancomycin Dosing) 1 each MISCELLANE DAILY PRN PRN Reason: Consult order Sodium Chloride (0.9 % Sodium Chloride Flush 3 Ml Syringe) 3 ml IVFLUSH QSHIFT [facility] Last Admin: 04/07/24 08:29 Dose: 3 ml Documented By: IRVING Labs 04/06/24 13:06 04/07/24 06:21 Labs: Laboratory Results - last 24 hr 04/06/24 04/06/24 04/06/24 13:06 13:54 17:43 MCV 79.0 L MCH 26.7 L MCHC 33.7 RDW 13.1 Plt Count 198 D MPV 9.2 L Immature Gran % (Auto) 0.7 H Neut % (Auto) 26.8 L Lymph % (Auto) 52.3 H [place] % (Auto) 19.5 H Eos % (Auto) 0.0 Baso % (Auto) 0.7 Lymph # (Auto) 0.8 L [place] # (Auto) 0.3 Eos # (Auto) 0.0 Baso # (Auto) 0.0 Abs Immat Gran (auto) 0.01 Absolute Neuts (auto) 0.4 L Absolute Nucleated RBC 0.000 Nucleated RBC % (auto) 0.0 Smear Tech's Comments VERIFIED PT 42.6 H INR 3.6 H APTT 43.6 H Anion Gap 11 L Estim Creat Clear Calc 87.8 Estimated GFR > 60 Random Glucose 136 H Lactic Acid 1.3 Calcium 9.6 D Magnesium 2.1 Total Bilirubin 0.7 AST 28 ALT 24 Alkaline Phosphatase 127 H Ammonia Troponin I High Sens 11.6 Total Protein 7.5 Albumin 3.3 L Procalcitonin 0.04 TSH 0.10 L Free T4 1.21 Urine Color Urine Appearance Urine pH Ur Specific Chromo Urine Protein Urine Glucose (UA) Urine Ketones Urine Blood Urine Nitrite Ur Leukocyte Esterase Urine RBC Urine WBC Ur Squamous Epith Cells Urine Bacteria Hyaline Casts Nasal Screen MRSA (PCR) Nasal S. aureus Screen Nasal MRSA/S.aureus Interp Respiratory Panel [place] See Note Adenovirus (Rapid PCR) Not Detected B.pert (TEM-PCR) Not Detected B.parapertussis DNA PCR Not Detected C. pneumoniae DNA (PCR) Not Detected Coronavirus OC43 (PCR) Not Detected Coronavirus HKU1 (PCR) Not Detected Coronavirus 229E (PCR) Not Detected Coronavirus NL63 (PCR) Not Detected Human Metapneumovir PCR Not Detected Influenza A (RT-PCR) Not Detected Influenza Type A (PCR) NEGATIVE Influenza B (RT-PCR) Not Detected Influenza Type B (PCR) NEGATIVE M. pneumoniae (PCR) Not Detected Parainfluenza 1 (PCR) Not Detected Parainfluenza 2 (PCR) Not Detected Parainfluenza 3 (PCR) Not Detected Parainfluenza 4 (PCR) Not Detected RSV (PCR) Not Detected RSV RNA Qual (PCR) NEGATIVE Entero/Rhino (PCR) Not Detected SARS-CoV-2 RNA (RT-PCR) NEGATIVE Not Detected 04/06/24 04/06/24 04/06/24 18:52 21:13 23:15 MCV MCH MCHC RDW Plt Count MPV Immature Gran % (Auto) Neut % (Auto) Lymph % (Auto) [place] % (Auto) Eos % (Auto) Baso % (Auto) Lymph # (Auto) [place] # (Auto) Eos # (Auto) Baso # (Auto) Abs Immat Gran (auto) Absolute Neuts (auto) Absolute Nucleated RBC Nucleated RBC % (auto) Smear Tech's Comments PT INR APTT Anion Gap Estim Creat Clear Calc Estimated GFR Random Glucose Lactic Acid Calcium Magnesium Total Bilirubin AST ALT Alkaline Phosphatase Ammonia 28 Troponin I High Sens Total Protein Albumin Procalcitonin TSH Free T4 Urine Color [place] A Urine Appearance Cloudy Urine pH 6.5 Ur Specific Chromo 1.020 Urine Protein See Note Urine Glucose (UA) See Note Urine Ketones Negative Urine Blood Large (3+) H Urine Nitrite Negative Ur Leukocyte Esterase Trace H Urine RBC >20 H Urine WBC 0-5 Ur Squamous Epith Cells 0-2 Urine Bacteria None Seen Hyaline Casts 0-2 Nasal Screen MRSA (PCR) NEGATIVE Nasal S. aureus Screen NEGATIVE Nasal MRSA/S.aureus Interp SEE NOTE Respiratory Panel [place] Adenovirus (Rapid PCR) B.pert (TEM-PCR) B.parapertussis DNA PCR C. pneumoniae DNA (PCR) Coronavirus OC43 (PCR) Coronavirus HKU1 (PCR) Coronavirus 229E (PCR) Coronavirus NL63 (PCR) Human Metapneumovir PCR Influenza A (RT-PCR) Influenza Type A (PCR) Influenza B (RT-PCR) Influenza Type B (PCR) M. pneumoniae (PCR) Parainfluenza 1 (PCR) Parainfluenza 2 (PCR) Parainfluenza 3 (PCR) Parainfluenza 4 (PCR) RSV (PCR) RSV RNA Qual (PCR) Entero/Rhino (PCR) SARS-CoV-2 RNA (RT-PCR) 04/07/24 06:21 MCV MCH MCHC RDW Plt Count MPV Immature Gran % (Auto) Neut % (Auto) Lymph % (Auto) [place] % (Auto) Eos % (Auto) Baso % (Auto) Lymph # (Auto) [place] # (Auto) Eos # (Auto) Baso # (Auto) Abs Immat Gran (auto) Absolute Neuts (auto) Absolute Nucleated RBC Nucleated RBC % (auto) Smear Tech's Comments PT INR APTT Anion Gap Estim Creat Clear Calc 72.2 Estimated GFR > 60 Random Glucose Lactic Acid Calcium Magnesium Total Bilirubin AST ALT Alkaline Phosphatase Ammonia Troponin I High Sens Total Protein Albumin Procalcitonin TSH Free T4 Urine Color Urine Appearance Urine pH Ur Specific Chromo Urine Protein Urine Glucose (UA) Urine Ketones Urine Blood Urine Nitrite Ur Leukocyte Esterase Urine RBC Urine WBC Ur Squamous Epith Cells Urine Bacteria Hyaline Casts Nasal Screen MRSA (PCR) Nasal S. aureus Screen Nasal MRSA/S.aureus Interp Respiratory Panel [place] Adenovirus (Rapid PCR) B.pert (TEM-PCR) B.parapertussis DNA PCR C. pneumoniae DNA (PCR) Coronavirus OC43 (PCR) Coronavirus HKU1 (PCR) Coronavirus 229E (PCR) Coronavirus NL63 (PCR) Human Metapneumovir PCR Influenza A (RT-PCR) Influenza Type A (PCR) Influenza B (RT-PCR) Influenza Type B (PCR) M. pneumoniae (PCR) Parainfluenza 1 (PCR) Parainfluenza 2 (PCR) Parainfluenza 3 (PCR) Parainfluenza 4 (PCR) RSV (PCR) RSV RNA Qual (PCR) Entero/Rhino (PCR) SARS-CoV-2 RNA (RT-PCR) Assessment and Plan (1) Acute UTI: Status: Acute Plan 82M PMH htn, hld, history of CVA. gerd, paroxysmal afib on coumadin, chronic leukopenia unkown etiology, graves disease, sleep apnea, bph, recently treat actinomyces uti presented with weakness and malodorous urine neutropenic sepsis source unclear vanc, zosyn, id following culture negative to date resp viral panel negative somonolence--d/t zyprexa, abg if persists HTN -amlodipine paroxysmal afib -coumadin history of cva -coumadin bph flomax chronic leukopenia outpatient hematology follow up history of graves not on meds full code reason for continued hospitalization: awaiting defervensence in sepsis with immunocompromised patient Quality Stroke Does the patient have a stroke diagnosis?: No VTE Prior VTE?: No VTE Risk Level:: Medical - moderate - high VTE Device Contraindication: N/A - Device Ordered VTE Drug Contraindication: N/A - Med Ordered
[2024-04-07 15:26] VITALS: BP 123/57; PULSE 70; RESP 18; TEMP 37.1; O2SAT 92
[2024-04-07 18:36] LABS: Vancomycin Random 12.9 mcg/mL (15-20)
[2024-04-07 19:30] VITALS: BP 132/61; PULSE 80; RESP 17; TEMP 36.4; O2SAT 94
[2024-04-08] VITALS (7 sets, daily range): BP systolic 130–168; BP diastolic 66–81; PULSE 54–95; RESP 18–20; TEMP 36–37; O2SAT 90–96
[2024-04-08] MEDS: Piperacillin Sodium/Tazobactam 4.5 GM in 0.9 % Sodium Chloride 100 ML IV ×5 (00:23→23:53)
[2024-04-08] MEDS: vancomycin HCL 1,250 MG in 0.9 % Sodium Chloride 250 ML 166.67 MG IV (07:58)
[2024-04-08] MEDS: Lactated Ringers 1,000 ML 100 ML IVCONT (07:59)
[2024-04-08] MEDS: 0.9 % Sodium Chloride Flush 3 ML SYRINGE IVFLUSH ×2 (08:05→19:47)
[2024-04-08 08:10] LABS: Creatinine Clr Calc Pharmacy 69.1; Estimated Glomerular Filt Rate > 60
[2024-04-08] MEDS: Azithromycin 500 MG in 0.9 % Sodium Chloride 250 ML 125 MG IV (10:00)
[2024-04-08 12:04] LABS: Basophils Percent Auto 0.6 % (0-2); Eosinophils Percent Auto 1.3 % (0-4); Hematocrit 35.1 % (42.0-52.0); Hemoglobin 11.8 g/dl (14.0-18.0); Imm Gran Abs Auto 0.01 X10*3/uL (0.00-0.03); Imm Gran Pct Auto 0.6 % (0.0-0.4); Lymphocytes Absolute Auto 0.8 X10*3/uL (1.2-4.9); Lymphocytes Percent Auto 53.5 % (20-40); MANUAL DIFF FLAG SCAN; Mean Corpuscular HGB Conc 33.6 g/dl (31.0-36.0); Mean Corpuscular Hemoglobin 26.8 pg (27.0-33.0); Mean Corpuscular Volume 79.6 fL (80.0-98.0); Mean Platelet Volume 9.7 fL (9.4-12.4); Monocytes Absolute Auto 0.3 X10*3/uL (0.1-1.2); Monocytes Percent Auto 17.4 % (2-11); Neutrophils Absolute Auto 0.4 x10*3/uL (2.0-8.3); Neutrophils Percent Auto 26.6 % (45-73); Platelet Count 167 X10*3/uL (160-400); Red Blood Count 4.41 X10*6/uL (4.60-5.80); Red Cell Distribution Width 13.3 % (11.0-16.0); SCAN SMEAR FLAG 1; White Blood Count 1.6 X10*3/uL (4.8-10.8)
[2024-04-08 12:16] LABS: Anion Gap 15 (12-20); Carbon Dioxide 25 mmol/L (22-29); Chloride 100 mmol/L (96-108); Magnesium 1.9 mg/dL (1.6-2.6); Potassium 3.7 mmol/L (3.3-5.1); Sodium 136 mmol/L (135-145)
[2024-04-08 12:35] LABS: SLIDE REVIEW VERIFIED
--- NOTE | 2024-04-08 12:54 | P.PNIM_ITS ---
Subjective Subjective Date of Service: 04/09/24 Interval History: f/u on pna, neutropenia doing better, no sob, less confused today Physical Exam 2 Vital Signs: Vital Signs: Last Vital Signs Temp 97.6 F 04/08/24 12:00 Pulse 76 04/08/24 12:00 Resp 18 04/08/24 12:00 BP 157/71 H 04/08/24 12:00 Pulse Ox 94 04/08/24 12:00 O2 Del Method Room Air 04/08/24 12:00 BMI result Body Mass Index 24.2 Const: Other: General: alert, cooperative Resp: CTA bilateral CVS: S1,S2,RRR GI: +BS, NT, no distention Skin: No rash Neuro: motor grossly intact Psych: appropriate affect Objective Data Active Medications Acetaminophen (Acetaminophen 325 Mg Tablet) 650 mg PO Q6H PRN PRN Reason: Pain, Mild (Pain Scale 1-3), fever or headache Calcium Carbonate (Calcium Carbonate 750 Mg Tab.Chew) 750 mg PO Q4H PRN PRN Reason: Heartburn Guaifenesin/Codeine Phosphate (Guaifen/Codeine Sf 200/20/10ml 10 Ml Liquid) 10 ml PO Q4H PRN PRN Reason: Cough Last Admin: 04/07/24 21:22 Dose: 10 ml Documented By: RAYMOND Azithromycin 500 mg/ Sodium (Chloride) 250 mls @ 125 mls/hr IV DAILY [facility] Last Admin: 04/08/24 10:00 Dose: 125 mls/hr Documented By: DONOVAN Lactated Ringer's (Lr) 1,000 mls @ 100 mls/hr IVCONT .Q10H [facility] Last Admin: 04/08/24 10:57 Dose: Not Given Documented By: DONOVAN Non-Admin Reason: IV Running Piperacillin Sod/Tazobactam (Sod 4.5 gm/ Sodium Chloride) 100 mls @ 200 mls/hr IV Q6H [facility] Last Infusion: 04/08/24 06:25 Dose: Infused Documented By: RAYMOND Vancomycin HCl 1,250 mg/ (Sodium Chloride) 250 mls @ 166.667 mls/hr IV Q12H [facility] Last Infusion: 04/08/24 09:45 Dose: Infused Documented By: DONOVAN Magnesium Hydroxide (Milk Of Magnesia 30 Ml Oral.Susp) 30 ml PO DAILY PRN PRN Reason: Constipation Melatonin (Melatonin 3 Mg Tablet) 6 mg PO BEDTIME PRN PRN Reason: Insomnia Pharmacy Consult (Consult Rx Vancomycin Dosing) 1 each MISCELLANE DAILY PRN PRN Reason: Consult order Sodium Chloride (0.9 % Sodium Chloride Flush 3 Ml Syringe) 3 ml IVFLUSH QSHIFT [facility] Last Admin: 04/08/24 08:05 Dose: 3 ml Documented By: DONOVAN Labs 04/09/24 05:58 04/09/24 05:58 Labs: Laboratory Results - last 24 hr 04/07/24 04/08/24 18:05 06:16 MCV 79.6 L MCH 26.8 L MCHC 33.6 RDW 13.3 Plt Count 167 MPV 9.7 Immature Gran % (Auto) 0.6 H Neut % (Auto) 26.6 L Lymph % (Auto) 53.5 H [place] % (Auto) 17.4 H Eos % (Auto) 1.3 Baso % (Auto) 0.6 Lymph # (Auto) 0.8 L [place] # (Auto) 0.3 Eos # (Auto) 0.0 Baso # (Auto) 0.0 Abs Immat Gran (auto) 0.01 Absolute Neuts (auto) 0.4 L Absolute Nucleated RBC 0.000 Nucleated RBC % (auto) 0.0 Smear Tech's Comments VERIFIED Hold Purple Top SEE NOTE Anion Gap 15 Estim Creat Clear Calc 69.1 Estimated GFR > 60 Magnesium 1.9 Random Vancomycin 12.9 L Microbiology Microbiology Results: Microbiology 04/06/24 14:02 Blood Culture - Preliminary Blood - Venous No growth after 24 hours. 04/06/24 13:54 Blood Culture - Preliminary Blood - Venous No growth after 24 hours. Assessment and Plan (1) Acute UTI: Status: Acute Plan 82M PMH htn, hld, history of CVA. gerd, paroxysmal afib on coumadin, chronic leukopenia unkown etiology, graves disease, sleep apnea, bph, recently treat actinomyces uti presented with weakness and malodorous urine neutropenic sepsis source unclear no mrsa, dc vanco continazithro, zosyn, id following culture negative to date resp viral panel negative oncology consult chronic leukopenia--hematology consult somonolence--d/t zyprexa. resolved HTN -amlodipine paroxysmal afib -coumadin, check INR history of cva -coumadin bph flomax chronic leukopenia outpatient hematology follow up history of graves not on meds full code reason for continued hospitalization: awaiting defervensence in sepsis with immunocompromised patient Quality Stroke Does the patient have a stroke diagnosis?: No VTE Prior VTE?: No VTE Risk Level:: Medical - moderate - high VTE Device Contraindication: N/A - Device Ordered VTE Drug Contraindication: N/A - Med Ordered
--- NOTE | 2024-04-08 13:21 | P.CNID_ITS ---
History of Present Illness Data of Consult Service Date: 04/07/24 Requesting physician: Yan Phelps Primary Care Provider: Kamaljit Santiago MD [facility] Reason for consult: RML pneumonia He presents with confusion for 3-4 days,worsening. He has no exposure to anyone ill. He took azithromycin and Amoxicillin by report one week and worse confusion. CT head no acute process but has had old CVA. He has chronic leukopenia and has no infectious cause seen to date. He has MRSA nasal specimen negative. He has traveled to [facility] in October 2023, I had seen him before GI symptoms. CT 05/2023 shows old right sided granulomatous disease. Review of Systems 2 Review of Systems: Yes Unobtainable due to mental condition PMFSH Family History Family history: reviewed and not pertinent Social History Social History Household Members: Spouse Housing: [facility] Do you presently have visiting nurse or other home services: No Comment: sitter placed Patient Tobacco Use Status: Never used Tobacco service: No Meds Allergies Allergy/AdvReac Type Severity Reaction Status Date / Time No Known Allergies Allergy Verified 04/06/24 12:56 [No Known Allergies*] N.K.D.A. Allergy Unknown Unknown Uncoded 04/06/24 12:56 Active Medications: Current Medications Acetaminophen (Acetaminophen 325 Mg Tablet) 650 mg PO Q6H PRN PRN Reason: Pain, Mild (Pain Scale 1-3), fever or headache Calcium Carbonate (Calcium Carbonate 750 Mg Tab.Chew) 750 mg PO Q4H PRN PRN Reason: Heartburn Guaifenesin/Codeine Phosphate (Guaifen/Codeine Sf 200/20/10ml 10 Ml Liquid) 10 ml PO Q4H PRN PRN Reason: Cough Last Admin: 04/07/24 21:22 Dose: 10 ml Azithromycin 500 mg/ Sodium (Chloride) 250 mls @ 125 mls/hr IV DAILY [facility] Last Admin: 04/08/24 10:00 Dose: 125 mls/hr Lactated Ringer's (Lr) 1,000 mls @ 100 mls/hr IVCONT .Q10H [facility] Last Admin: 04/08/24 10:57 Dose: Not Given Piperacillin Sod/Tazobactam (Sod 4.5 gm/ Sodium Chloride) 100 mls @ 200 mls/hr IV Q6H [facility] Last Infusion: 04/08/24 06:25 Dose: Infused Vancomycin HCl 1,250 mg/ (Sodium Chloride) 250 mls @ 166.667 mls/hr IV Q12H [facility] Last Infusion: 04/08/24 09:45 Dose: Infused Magnesium Hydroxide (Milk Of Magnesia 30 Ml Oral.Susp) 30 ml PO DAILY PRN PRN Reason: Constipation Melatonin (Melatonin 3 Mg Tablet) 6 mg PO BEDTIME PRN PRN Reason: Insomnia Pharmacy Consult (Consult Rx Vancomycin Dosing) 1 each MISCELLANE DAILY PRN PRN Reason: Consult order Sodium Chloride (0.9 % Sodium Chloride Flush 3 Ml Syringe) 3 ml IVFLUSH QSHIFT [facility] Last Admin: 04/08/24 08:05 Dose: 3 ml Home Medications ?Medication ?Instructions ?Recorded ?Confirmed ?Last Taken ?Type acetaminophen 325 mg tablet 650 mg PO Q6H PRN Pain 05/21/23 04/06/24 Unknown History atorvastatin 20 mg tablet 20 mg PO BEDTIME 05/21/23 04/06/24 04/05/24 History fluticasone propionate 50 1 spray intranasal DAILY 05/21/23 04/06/24 04/05/24 History mcg/actuation nasal spray,suspension tamsulosin 0.4 mg capsule 0.4 mg PO BEDTIME 05/21/23 04/06/24 04/02/24 History warfarin 5 mg tablet (Jantoven) 5 mg PO SUMOTUWETHSA@1800 05/21/23 04/06/24 04/05/24 History warfarin 5 mg tablet (Jantoven) 7.5 mg PO FR@1800 05/21/23 04/06/24 04/03/24 History Physical Exam 2 Vital Signs: Vital Signs: Last Vital Signs Temp 97.6 F 04/08/24 12:00 Pulse 76 04/08/24 12:00 Resp 18 04/08/24 12:00 BP 157/71 H 04/08/24 12:00 Pulse Ox 94 04/08/24 12:00 O2 Del Method Room Air 04/08/24 12:00 BMI result Body Mass Index 24.2 Resp: Other: diminished bsounds bases Results Labs 04/08/24 06:16 04/08/24 06:16 Labs: Short CBC 04/08/24 Range/Units 06:16 WBC 1.6 L (4.8-10.8) X10*3/uL Hgb 11.8 L (14.0-18.0) g/dl Hct 35.1 L (42.0-52.0) % Plt Count 167 (160-400) X10*3/uL BMP 04/08/24 06:16 Sodium 136 Potassium 3.7 Chloride 100 Carbon Dioxide 25 Creatinine 0.92 Microbiology Microbiology Results: Microbiology 04/06/24 14:02 Blood - Venous Blood Culture - Preliminary No growth after 24 hours. 04/06/24 13:54 Blood - Venous Blood Culture - Preliminary No growth after 24 hours. Assessment and Plan (1) Pneumonia: Qualifiers: Laterality: right Lung location: middle lobe of lung Pneumonia type: d ue to unspecified organism Qualified Code(s): J18.9 - Pneumonia, unspecified organism Status: Acute (2) Altered mental status: Qualifiers: Altered mental status type: unspecified Qualified Code(s): R41.82 - Altered mental status, unspecified Status: Acute (3) Leukocytopenia: Status: Acute Plan Concern over right middle lobe infection Prior granulomatous disease on CT,doubt TB Check CT chest ,also evaluate PE. Possible resistant organism or collagen vascular lung disease ?RA See Hematology for possible multiple myeloma/other ?bone marrow biopsy. Possible bronchoscopy right lung evaluate chronic pneumonia if suspicion on CT ?HORACIO ?rhodococcus?fungus doubt TB but dont see prior TB testing. Would continue zosyn and azithromycin possible 3-5 days but stop Vancomycin since nasal swab negative MRSA.
--- NOTE | 2024-04-08 13:58 | PM.HEMONCCN ---
Subjective - Subjective Chief complaint: Cough and difficulty walking Patient: new to practice Consult date: 04/08/24 Requesting Physician: Dr. Rogers Primary Care Provider: Kamaljit Santiago MD HPI - Consult Narrative Reason for consult: Leukopenia/neutropenia Narrative: Hiro Alcantar is a 83 year old male with past medical history significant for hypertension, HLD, history of CVA, GERD and recurrent UTIs who was brought in by his for worsening cough as well as difficulty walking. is the main historian, she says that he was recently treated as an outpatient with amoxicillin and azithromycin. For 2 weeks he was having cough. On Saturday patient could hardly walk and he seemed disoriented which prompted his to call for the ambulance. He was diagnosed with leukopenia about a year ago. He had a bone marrow biopsy at [facility] in 08/2023 which was reportedly normal. Chest x-ray performed in the ED showed right mid lung pneumonia. He is also being treated for hyper thyroidism at [facility]. He reports some tingling in his feet. He has chronic weakness in his left lower extremity because of prior CVA. He was never diagnosed with any malignancy. Review of Systems - Constitutional Reports as per HPI, Reports night sweats, Reports poor appetite, Reports weakness - Cardiovascular Reports no additional cardiovascular complaints - Respiratory Reports chest congestion, Reports cough - Gastrointestinal Denies abdominal pain - Neurologic Reports abnormal gait PMFSH Family history: reviewed and not pertinent Social History: Social History (Last Reviewed 04/08/24 @ 13:26 by Kaia Méndez MD) Living Situation History: Household Members: Spouse [facility]: [facility] Do you presently have visiting nurse or other home services: No Tobacco History: Patient Tobacco Use Status: Never used Tobacco Occupation Assessmet: service: No Home Medications and Allergies Current Medications: Current Medications Acetaminophen (Acetaminophen 325 Mg Tablet) 650 mg PO Q6H PRN PRN Reason: Pain, Mild (Pain Scale 1-3), fever or headache Calcium Carbonate (Calcium Carbonate 750 Mg Tab.Chew) 750 mg PO Q4H PRN PRN Reason: Heartburn Guaifenesin/Codeine Phosphate (Guaifen/Codeine Sf 200/20/10ml 10 Ml Liquid) 10 ml PO Q4H PRN PRN Reason: Cough Last Admin: 04/07/24 21:22 Dose: 10 ml Azithromycin 500 mg/ Sodium (Chloride) 250 mls @ 125 mls/hr IV DAILY [facility] Last Infusion: 04/08/24 12:05 Dose: Infused Lactated Ringer's (Lr) 1,000 mls @ 100 mls/hr IVCONT .Q10H [facility] Last Admin: 04/08/24 10:57 Dose: Not Given Piperacillin Sod/Tazobactam (Sod 4.5 gm/ Sodium Chloride) 100 mls @ 200 mls/hr IV Q6H [facility] Last Admin: 04/08/24 13:30 Dose: 200 mls/hr Magnesium Hydroxide (Milk Of Magnesia 30 Ml Oral.Susp) 30 ml PO DAILY PRN PRN Reason: Constipation Melatonin (Melatonin 3 Mg Tablet) 6 mg PO BEDTIME PRN PRN Reason: Insomnia Pharmacy Consult (Consult Rx Vancomycin Dosing) 1 each MISCELLANE DAILY PRN PRN Reason: Consult order Sodium Chloride (0.9 % Sodium Chloride Flush 3 Ml Syringe) 3 ml IVFLUSH QSHIFT [facility] Last Admin: 04/08/24 08:05 Dose: 3 ml Home Medications ?Medication ?Instructions ?Recorded ?Confirmed ?Type acetaminophen 325 mg tablet 650 mg PO Q6H PRN Pain 05/21/23 04/06/24 History atorvastatin 20 mg tablet 20 mg PO BEDTIME 05/21/23 04/06/24 History fluticasone propionate 50 1 spray intranasal DAILY 05/21/23 04/06/24 History mcg/actuation nasal spray,suspension tamsulosin 0.4 mg capsule 0.4 mg PO BEDTIME 05/21/23 04/06/24 History warfarin 5 mg tablet (Jantoven) 5 mg PO SUMOTUWETHSA@1800 05/21/23 04/06/24 History warfarin 5 mg tablet (Jantoven) 7.5 mg PO FR@1800 05/21/23 04/06/24 History Allergies Allergy/AdvReac Type Severity Reaction Status Date / Time No Known Allergies Allergy Verified 04/06/24 12:56 [No Known Allergies*] N.K.D.A. Allergy Unknown Unknown Uncoded 04/06/24 12:56 Physical Exam Vital signs: Vital Signs Temp 97.6 F 04/08/24 12:00 Pulse 76 04/08/24 12:00 Resp 18 04/08/24 12:00 BP 157/71 H 04/08/24 12:00 Pulse Ox 94 04/08/24 12:00 O2 Del Method Room Air 04/08/24 12:00 Intake & Output 04/07/24 04/08/24 04/08/24 18:59 06:59 18:59 Intake Total 1966.667 / 3416.667 1450 / 3416.667 500 / 500 Output Total 100 / 101 1 / 101 Balance 1866.667 / 3315.667 1449 / 3315.667 500 / 500 Urine Output (Average ml/kg/hr) 0.10 0.00 0.00 Intake: Intake, Oral Amount 270 / 270 Intake, IV Amount 1696.667 / 3146.667 1450 / 3146.667 500 / 500 Azithromycin 500 mg In 0.9 % 250 / 250 250 / 250 Sodium Chloride 250 ml @ 125 mls/hr IV DAILY [facility] Rx#: [id number] Piperacillin Sodium/Tazobactam 200 / 400 200 / 400 4.5 gm In 0.9 % Sodium Chloride 100 ml @ 200 mls/hr IV Q6H [facility] Rx#:[id number] vancomycin HCL 1,250 mg In 0.9 250 / 500 250 / 500 250 / 250 % Sodium Chloride 250 ml @ 166. 667 mls/hr IV Q12H [facility] Rx#: [id number] Lactated Ringers 1,000 ml @ 100 996.667 / 3458.356 4332 / 1996.667 mls/hr IVCONT .Q10H [facility] Rx#: [id number] Output: Output, Urine Amount 100 / 101 1 / 101 Other: Breakfast % Eaten 15% Lunch % Eaten 15% Eating (Feeding) Ability Cueing Needed Number of Incontinent Voids 4 Number of Unmeasured Voids 1 Number of Bowel Movements 2 Urine Bedside Commode Bedside Commode Urine Color Concentrated Yellow Last Bowel Movement 04/07/24 04/07/24 Stool Bedside Commode Stool Amount Small Stool Color Brown Stool Consistency Mushy Weight 81 kg - Constitutional Present: no acute distress - Routine HEENT Exam Head: Present: normal inspection Eye: Present: EOMI - Routine Neck Exam Present: supple - Routine Respiratory Exam Present: CTAB - Routine Cardiovascular Exam Cardiovascular: Present: RRR, S1, S2 - Routine Abdominal Exam Present: soft - Routine Extremities Exam Present: pulses intact. Absent: pedal edema - Routine Neurological Exam Present: abnormal gait Hem/Onc Consult Result - Labs CBC & Chem 7: 04/08/24 06:16 04/08/24 06:16 Labs: Short CBC 04/08/24 Range/Units 06:16 WBC 1.6 L (4.8-10.8) X10*3/uL Hgb 11.8 L (14.0-18.0) g/dl Hct 35.1 L (42.0-52.0) % Plt Count 167 (160-400) X10*3/uL BMP 04/08/24 06:16 Sodium 136 Potassium 3.7 Chloride 100 Carbon Dioxide 25 Creatinine 0.92 Assessment and Plan Patient Active problem list reviewed?: Yes (1) Leukocytopenia Status: Chronic Assessment and plan: 1. 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 His ANC is about 400. He has had extensive evaluation at [facility] including a bone marrow aspiration/biopsy in August 2023. He says he is under the care of Dr. Merida. He was told that he did not have any cancer but was unclear as to the cause of leukopenia. He is currently admitted for pneumonia and is receiving IV antibiotics. However his is most concerned about his inability to walk. He went to [facility] earlier this year, he was able to walk until Saturday without any difficulty. He has mild residual weakness in his left lower extremity after a prior CVA which occurred in 2014 and was treated at [facility]. I will try to obtain records from [facility]. If infection or sepsis is a concern, Neupogen may be used to increase his WBC count. Consider neurology evaluation/brain imaging for his sudden onset difficulty with ambulation. I thank you for the consult, will follow. - Time Spent With Patient Time Spent with Patient (in minutes): 25 Additional Coding: - Additional E/M codes Complex E/M visit Add On: CPT G2211
[2024-04-08 14:27] LABS: Lactate Dehydrogenase 248 U/L (118-273)
[2024-04-08 14:28] LABS: Prothrombin Time 46.5 SEC (10.9-12.4)
[2024-04-08 15:30] LABS: Folate 9.9 ng/mL (> or = 4.0); Vitamin B12 1217 pg/mL (200-900)
[2024-04-08 15:55] LABS: Iron 33 mcg/dL (45-160); Percent Iron Saturation 22 % (15-50); Total Iron Binding Capacity 151 mcg/dL (228-428); Unsaturated Iron Binding 118 ug/dL
[2024-04-08 16:20] LABS: Ferritin 358 ng/mL (20-250); Thyroid Stimulating Hormone 0.18 uIU/mL (0.32-4.0)
--- NOTE | 2024-04-08 18:39 | PC.NURSE ---
Pt having more frequent episodes of short bursts tachycardia up to 160's during shift with more frequent PAC's on tele otherwise NSR. Pt asymptomatic with episodes. Dr Rogers aware labs ordered and drawn and CTA chest completed in afternoon per orders. Resting in bed camera and alarms for safety
[2024-04-08 19:16] LABS: Vancomycin Random 16.3 mcg/mL (15-20)
[2024-04-08] MEDS: Atorvastatin Calcium 20 MG TABLET PO (19:47)
[2024-04-08] MEDS: Tamsulosin HCL 0.4 MG CAPSULE PO (19:47)
[2024-04-08] MEDS: guaiFEN/Codeine SF 200/20/10ML 10 ML LIQUID PO (19:49)
[2024-04-09 04:00] VITALS: BP 160/74; PULSE 95; RESP 17; TEMP 37.6; O2SAT 92
[2024-04-09] MEDS: Piperacillin Sodium/Tazobactam 4.5 GM in 0.9 % Sodium Chloride 100 ML IV ×3 (06:20→18:37)
[2024-04-09 07:11] LABS: Hematocrit 36.3 % (42.0-52.0); Hemoglobin 12.3 g/dl (14.0-18.0); Mean Corpuscular HGB Conc 33.9 g/dl (31.0-36.0); Mean Corpuscular Hemoglobin 26.5 pg (27.0-33.0); Mean Corpuscular Volume 78.1 fL (80.0-98.0); Mean Platelet Volume 9.6 fL (9.4-12.4); Platelet Count 175 X10*3/uL (160-400); Red Blood Count 4.65 X10*6/uL (4.60-5.80); Red Cell Distribution Width 13.2 % (11.0-16.0)
[2024-04-09 07:12] LABS: INTERNATIONAL NORM RATIO 4.2 (0.9-1.1); Prothrombin Time 49.4 SEC (10.9-12.4)
[2024-04-09 07:15] LABS: Anion Gap 11 (12-20); Blood Urea Nitrogen 15 mg/dL (9-16); Calcium 9.1 mg/dL (8.4-10.2); Carbon Dioxide 26 mmol/L (22-29); Chloride 103 mmol/L (96-108); Creatinine Clr Calc Pharmacy 70.6; Estimated Glomerular Filt Rate > 60; Glucose Random 106 mg/dL (60-115); Potassium 3.3 mmol/L (3.3-5.1); Sodium 137 mmol/L (135-145)
[2024-04-09 07:20] VITALS: BP 128/84; PULSE 85; RESP 18; TEMP 36.4; O2SAT 94
[2024-04-09 07:22] LABS: White Blood Count 1.5 X10*3/uL (4.8-10.8)
[2024-04-09] MEDS: Azithromycin 500 MG in 0.9 % Sodium Chloride 250 ML 125 MG IV (08:35)
[2024-04-09] MEDS: 0.9 % Sodium Chloride Flush 3 ML SYRINGE IVFLUSH ×2 (08:36→20:23)
[2024-04-09] MEDS: Fluticasone Propionate Nasal 16 GM SPRAY 1 SPRAY NOSTRIL-B (08:41)
--- NOTE | 2024-04-09 09:13 | PM.NEUROCN ---
History of Present Illness Data of Consult Service Date: 04/09/24 Primary Care Provider: Kamaljit Santiago MD [facility] Reason for consult: Difficulty walking 83 years old man with significant leukopenia of unknown etiology with cause not found despite apparently extensive investigations and a previous history of stroke affecting his left side. He was admitted in hospital for unrelated reason but his reported that he was also having difficulty walking this consultation was requested. He said that he might have difficulty walking for about a month. He denied any significant back pain. No significant headache. No significant change in personality. No complain of numbness tingling or pain in feet or legs. Review of Systems Review of Systems: He has been complaining cough. [facility] Family History Family history: reviewed and not pertinent Social History Social History Household Members: Spouse Housing: [facility] Do you presently have visiting nurse or other home services: No Comment: sitter placed Patient Tobacco Use Status: Never used Tobacco service: No Meds Allergies Allergy/AdvReac Type Severity Reaction Status Date / Time No Known Allergies Allergy Verified 04/06/24 12:56 [No Known Allergies*] N.K.D.A. Allergy Unknown Unknown Uncoded 04/06/24 12:56 Active Medications: Current Medications Acetaminophen (Acetaminophen 325 Mg Tablet) 650 mg PO Q6H PRN PRN Reason: Pain, Mild (Pain Scale 1-3), fever or headache Atorvastatin Calcium (Atorvastatin Calcium 20 Mg Tablet) 20 mg PO BEDTIME [facility] Last Admin: 04/08/24 19:47 Dose: 20 mg Calcium Carbonate (Calcium Carbonate 750 Mg Tab.Chew) 750 mg PO Q4H PRN PRN Reason: Heartburn Fluticasone Propionate (Fluticasone Propionate Nasal 16 Gm [place]) 1 spray NOSTRIL-B DAILY [facility] Last Admin: 04/09/24 08:41 Dose: 1 spray Guaifenesin/Codeine Phosphate (Guaifen/Codeine Sf 200/20/10ml 10 Ml Liquid) 10 ml PO Q4H PRN PRN Reason: Cough Last Admin: 04/08/24 19:49 Dose: 10 ml Azithromycin 500 mg/ Sodium (Chloride) 250 mls @ 125 mls/hr IV DAILY [facility] Last Admin: 04/09/24 08:35 Dose: 125 mls/hr Piperacillin Sod/Tazobactam (Sod 4.5 gm/ Sodium Chloride) 100 mls @ 200 mls/hr IV Q6H [facility] Last Infusion: 04/09/24 07:00 Dose: Infused Magnesium Hydroxide (Milk Of Magnesia 30 Ml Oral.Susp) 30 ml PO DAILY PRN PRN Reason: Constipation Melatonin (Melatonin 3 Mg Tablet) 6 mg PO BEDTIME PRN PRN Reason: Insomnia Sodium Chloride (0.9 % Sodium Chloride Flush 3 Ml Syringe) 3 ml IVFLUSH QSHIFT [facility] Last Admin: 04/09/24 08:36 Dose: 3 ml Tamsulosin HCl (Tamsulosin Hcl 0.4 Mg Capsule) 0.4 mg PO BEDTIME [facility] Last Admin: 04/08/24 19:47 Dose: 0.4 mg Warfarin Sodium (Warfarin Sodium 5 Mg Tablet) 5 mg PO SUMOTUWETHSA@1800 [facility] Warfarin Sodium (Warfarin Sodium 7.5 Mg Tablet) 7.5 mg PO FR@1800 [facility] Home Medications ?Medication ?Instructions ?Recorded ?Confirmed ?Last Taken ?Type acetaminophen 325 mg tablet 650 mg PO Q6H PRN Pain 05/21/23 04/06/24 Unknown History atorvastatin 20 mg tablet 20 mg PO BEDTIME 05/21/23 04/06/24 04/05/24 History fluticasone propionate 50 1 spray intranasal DAILY 05/21/23 04/06/24 04/05/24 History mcg/actuation nasal spray,suspension tamsulosin 0.4 mg capsule 0.4 mg PO BEDTIME 05/21/23 04/06/24 04/02/24 History warfarin 5 mg tablet (Jantoven) 5 mg PO SUMOTUWETHSA@1800 05/21/23 04/06/24 04/05/24 History warfarin 5 mg tablet (Jantoven) 7.5 mg PO FR@1800 05/21/23 04/06/24 04/03/24 History Physical Exam Vital Signs: Vital Signs: Last Vital Signs Temp 97.6 F 04/09/24 07:20 Pulse 85 04/09/24 07:20 Resp 18 04/09/24 07:20 BP 128/84 04/09/24 07:20 Pulse Ox 94 04/09/24 07:20 O2 Del Method Room Air 04/09/24 07:20 BMI result Body Mass Index 24.2 Neuro: Other: He is alert and awake with normal spontaneity of speech fluency comprehension and somewhat flat affect. Speech is soft. Comprehension is intact. He is following simple commands. Face is symmetrical. No nystagmus is noted. Visual chung are full. There is no obvious focal asymmetric arm or leg weakness other than generalize weakness. Deep tendon reflexes are absent with flexor plantars. [id number] testing is okay. Results Labs 04/09/24 05:58 04/09/24 05:58 Labs: Short CBC 04/08/24 04/09/24 Range/Units 06:16 05:58 WBC 1.6 L 1.5 L (4.8-10.8) X10*3/uL Hgb 11.8 L 12.3 L (14.0-18.0) g/dl Hct 35.1 L 36.3 L (42.0-52.0) % Plt Count 167 175 (160-400) X10*3/uL BMP 04/08/24 04/09/24 06:16 05:58 Sodium 136 137 Potassium 3.7 3.3 Chloride 100 103 Carbon Dioxide 25 26 BUN 15 Creatinine 0.[address] revealed moderate ventriculomegaly and moderate to severe white matter hypodense signal abnormalities. Microbiology Microbiology Results: Microbiology 04/06/24 14:02 Blood - Venous Blood Culture - Preliminary No growth after 48 hours. 04/06/24 13:54 Blood - Venous Blood Culture - Preliminary No growth after 48 hours. Assessment and Plan (1) Multifactorial gait disorder: Status: Acute 83 years old man who probably has multiple reasons for problem walking and unsteadiness including recent medical illnesses. In the brain, he has significant microvascular disease and ventriculomegaly, both contributing to unsteadiness. The might be another ischemic lesion, which can be explored by doing a noncontrast MRI of brain. His examination also suggested peripheral neuropathy contributing to unsteadiness. Finally, proper evaluation of this type of complaint is better down when patient is medically better and in outpatient setting. In the meantime, treatment of medical issues, noncontrast MRI of brain, outpatient EMG nerve conduction study of legs, and PT OT consultations are recommended. Procedures Date of Service Date of Service: 04/09/24
--- NOTE | 2024-04-09 10:10 | PM.HEMONCPN ---
Medical Summary - Medical Summary Date of Service: 04/09/24 Chief complaint: Weakness Primary Care Provider: Kamaljit Santiago MD Interval History Interval history: Hiro Alcantar is a 83 year old male with past medical history significant for hypertension, HLD, history of CVA, GERD and recurrent UTIs who was brought in by his for worsening cough as well as difficulty walking. is the main historian, she says that he was recently treated as an outpatient with amoxicillin and azithromycin. For 2 weeks he was having cough. On Saturday patient could hardly walk and he seemed disoriented which prompted his to call for the ambulance. He was diagnosed with leukopenia about a year ago. He had a bone marrow biopsy at [facility] in 08/2023 which was reportedly normal. Chest x-ray performed in the ED showed right mid lung pneumonia. He is also being treated for hyper thyroidism at [facility]. He reports some tingling in his feet. He has chronic weakness in his left lower extremity because of prior CVA. He was never diagnosed with any malignancy. He is feeling better today. No reports of fever or chills. Review of Systems - Neurologic Reports abnormal gait, Reports weakness PMFSH Family history: reviewed and not pertinent Social History: Social History (Last Reviewed 04/08/24 @ 13:26 by Kaia Méndez MD) Living Situation History: Household Members: Spouse Housing: [facility] Do you presently have visiting nurse or other home services: No Tobacco History: Patient Tobacco Use Status: Never used Tobacco Occupation Assessmet: service: No Home Medications and Allergies Current Medications: Current Medications Acetaminophen (Acetaminophen 325 Mg Tablet) 650 mg PO Q6H PRN PRN Reason: Pain, Mild (Pain Scale 1-3), fever or headache Atorvastatin Calcium (Atorvastatin Calcium 20 Mg Tablet) 20 mg PO BEDTIME [facility] Last Admin: 04/08/24 19:47 Dose: 20 mg Calcium Carbonate (Calcium Carbonate 750 Mg Tab.Chew) 750 mg PO Q4H PRN PRN Reason: Heartburn Fluticasone Propionate (Fluticasone Propionate Nasal 16 Gm [place]) 1 spray NOSTRIL-B DAILY [facility] Last Admin: 04/09/24 08:41 Dose: 1 spray Guaifenesin/Codeine Phosphate (Guaifen/Codeine Sf 200/20/10ml 10 Ml Liquid) 10 ml PO Q4H PRN PRN Reason: Cough Last Admin: 04/08/24 19:49 Dose: 10 ml Azithromycin 500 mg/ Sodium (Chloride) 250 mls @ 125 mls/hr IV DAILY [facility] Last Admin: 04/09/24 08:35 Dose: 125 mls/hr Piperacillin Sod/Tazobactam (Sod 4.5 gm/ Sodium Chloride) 100 mls @ 200 mls/hr IV Q6H [facility] Last Infusion: 04/09/24 07:00 Dose: Infused Magnesium Hydroxide (Milk Of Magnesia 30 Ml Oral.Susp) 30 ml PO DAILY PRN PRN Reason: Constipation Melatonin (Melatonin 3 Mg Tablet) 6 mg PO BEDTIME PRN PRN Reason: Insomnia Sodium Chloride (0.9 % Sodium Chloride Flush 3 Ml Syringe) 3 ml IVFLUSH QSHIFT [facility] Last Admin: 04/09/24 08:36 Dose: 3 ml Tamsulosin HCl (Tamsulosin Hcl 0.4 Mg Capsule) 0.4 mg PO BEDTIME [facility] Last Admin: 04/08/24 19:47 Dose: 0.4 mg Warfarin Sodium (Warfarin Sodium 5 Mg Tablet) 5 mg PO SUMOTUWETHSA@1800 [facility] Warfarin Sodium (Warfarin Sodium 7.5 Mg Tablet) 7.5 mg PO FR@1800 [facility] Home Medications ?Medication ?Instructions ?Recorded ?Confirmed ?Type acetaminophen 325 mg tablet 650 mg PO Q6H PRN Pain 05/21/23 04/06/24 History atorvastatin 20 mg tablet 20 mg PO BEDTIME 05/21/23 04/06/24 History fluticasone propionate 50 1 spray intranasal DAILY 05/21/23 04/06/24 History mcg/actuation nasal spray,suspension tamsulosin 0.4 mg capsule 0.4 mg PO BEDTIME 05/21/23 04/06/24 History warfarin 5 mg tablet (Jantoven) 5 mg PO SUMOTUWETHSA@1800 05/21/23 04/06/24 History warfarin 5 mg tablet (Jantoven) 7.5 mg PO FR@1800 05/21/23 04/06/24 History Allergies Allergy/AdvReac Type Severity Reaction Status Date / Time No Known Allergies Allergy Verified 04/06/24 12:56 [No Known Allergies*] N.K.D.A. Allergy Unknown Unknown Uncoded 04/06/24 12:56 Exam Vital signs: Vital Signs Temp 97.6 F 04/09/24 07:20 Pulse 85 04/09/24 07:20 Resp 18 04/09/24 07:20 BP 128/84 04/09/24 07:20 Pulse Ox 94 04/09/24 07:20 O2 Del Method Room Air 04/09/24 07:20 Intake & Output 04/08/24 04/09/24 04/09/24 18:59 06:59 18:59 Intake Total 1578.333 / 2178.333 500 / 2178.333 100 / 100 Output Total 1700 / 1700 Balance 1578.333 / 478.333 -1200 / 478.333 100 / 100 Urine Output (Average ml/kg/hr) 1.75 1.75 Intake: Intake, Oral Amount 360 / 660 300 / 660 Intake, IV Amount 1218.333 / 1518.333 200 / 1518.333 100 / 100 Azithromycin 500 mg In 0.9 % 250 / 250 Sodium Chloride 250 ml @ 125 mls/hr IV DAILY [facility] Rx#: [id number] Piperacillin Sodium/Tazobactam 100 / 400 200 / 400 100 / 100 4.5 gm In 0.9 % Sodium Chloride 100 ml @ 200 mls/hr IV Q6H [facility] Rx#:[id number] vancomycin HCL 1,250 mg In 0.9 250 / 250 % Sodium Chloride 250 ml @ 166. 667 mls/hr IV Q12H [facility] Rx#: [id number] Lactated Ringers 1,000 ml @ 100 618.333 / 618.333 mls/hr IVCONT .Q10H [facility] Rx#: [id number] Output: Output, Urine Amount 500 / 500 Output, Urine Amount (Catheter) 1200 / 1200 Straight 1200 / 1200 Other: Breakfast % Eaten 25% Lunch % Eaten 0% Eating (Feeding) Ability Independent Number of Incontinent Voids 1 2 Number of Unmeasured Voids 2 3 Number of Bowel Movements 0 Urine Bedside Commode Urine Color Yellow Last Bowel Movement 04/07/24 04/08/24 Weight 81 kg BMI result Body Mass Index 24.2 - Constitutional Present: no acute distress - Routine HEENT Exam Head: Present: normal inspection - Routine Respiratory Exam Present: CTAB - Routine Cardiovascular Exam Cardiovascular: Present: RRR, S1, S2 - Routine Abdominal Exam Present: soft - Routine Extremities Exam Present: pulses intact. Absent: pedal edema - Routine Neurological Exam Present: abnormal gait Data - Labs CBC & Chem 7: 04/09/24 05:58 04/09/24 05:58 Labs: Laboratory Last Values WBC 1.5 X10*3/uL (4.8-10.8) L 04/09/24 05:58 RBC 4.65 X10*6/uL (4.60-5.80) 04/09/24 05:58 Hgb 12.3 g/dl (14.0-18.0) L 04/09/24 05:58 Hct 36.3 % (42.0-52.0) L 04/09/24 05:58 MCV 78.1 fL (80.0-98.0) L 04/09/24 05:58 MCH 26.5 pg (27.0-33.0) L 04/09/24 05:58 MCHC 33.9 g/dl (31.0-36.0) 04/09/24 05:58 RDW 13.2 % (11.0-16.0) 04/09/24 05:58 Plt Count 175 X10*3/uL (160-400) 04/09/24 05:58 MPV 9.6 fL (9.4-12.4) 04/09/24 05:58 Immature Gran % (Auto) 0.6 % (0.0-0.4) H 04/08/24 06:16 Neut % (Auto) 26.6 % (45-73) L 04/08/24 06:16 Lymph % (Auto) 53.5 % (20-40) H 04/08/24 06:16 [place] % (Auto) 17.4 % (2-11) H 04/08/24 06:16 Eos % (Auto) 1.3 % (0-4) 04/08/24 06:16 Baso % (Auto) 0.6 % (0-2) 04/08/24 06:16 Lymph # (Auto) 0.8 X10*3/uL (1.2-4.9) L 04/08/24 06:16 [place] # (Auto) 0.3 X10*3/uL (0.1-1.2) 04/08/24 06:16 Eos # (Auto) 0.0 X10*3/uL (0.0-0.4) 04/08/24 06:16 Baso # (Auto) 0.0 X10*3/uL (0.0-0.2) 04/08/24 06:16 Abs Immat Gran (auto) 0.01 X10*3/uL (0.00-0.03) 04/08/24 06:16 Absolute Neuts (auto) 0.4 x10*3/uL (2.0-8.3) L 04/08/24 06:16 Absolute Nucleated RBC 0.000 X10*3/uL (0.0-0.012) 04/09/24 05:58 Nucleated RBC % (auto) 0.0 /100WBC (0.0-0.2) 04/09/24 05:58 Smear Tech's Comments VERIFIED 04/08/24 06:16 Hold Purple Top SEE NOTE 04/08/24 06:16 PT 49.4 SEC (10.9-12.4) H 04/09/24 05:58 INR 4.2 (0.9-1.1) H 04/09/24 05:58 APTT 43.6 SEC (26.0-36.8) H 04/06/24 13:06 Sodium 137 mmol/L (135-145) 04/09/24 05:58 Potassium 3.3 mmol/L (3.3-5.1) 04/09/24 05:58 Chloride 103 mmol/L (96-108) 04/09/24 05:58 Carbon Dioxide 26 mmol/L (22-29) 04/09/24 05:58 Anion Gap 11 (12-20) L 04/09/24 05:58 BUN 15 mg/dL (9-16) 04/09/24 05:58 Creatinine 0.90 mg/dL (0.5-1.4) 04/09/24 05:58 Estim Creat Clear Calc 70.6 04/09/24 05:58 Estimated GFR > 60 04/09/24 05:58 Random Glucose 106 mg/dL (60-115) 04/09/24 05:58 Lactic Acid 1.3 mmol/L (0.5-2.0) 04/06/24 13:54 Calcium 9.1 mg/dL (8.4-10.2) 04/09/24 05:58 Magnesium 1.9 mg/dL (1.6-2.6) 04/08/24 06:16 Iron 33 mcg/dL (45-160) L 04/08/24 06:16 TIBC 151 mcg/dL (228-428) L 04/08/24 06:16 % Saturation 22 % (15-50) 04/08/24 06:16 Unsat Iron Binding 118 ug/dL 04/08/24 06:16 Ferritin 358 ng/mL (20-250) H 04/08/24 06:16 Total Bilirubin 0.7 mg/dL (0.0-1.0) 04/06/24 13:06 AST 28 U/L (5-37) 04/06/24 13:06 ALT 24 U/L (0-40) 04/06/24 13:06 Alkaline Phosphatase 127 U/L (39-117) H 04/06/24 13:06 Ammonia 28 umol/L (13-55) 04/06/24 18:52 Lactate Dehydrogenase 248 U/L (118-273) 04/08/24 14:07 Troponin I High Sens 11.6 ng/L (<3.5-35.0) 04/06/24 13:06 Total Protein 7.5 g/dL (6.5-8.0) 04/06/24 13:06 Albumin 3.3 g/dL (3.5-5.0) L 04/06/24 13:06 Vitamin B12 1217 pg/mL (200-900) H 04/08/24 14:07 Folate 9.9 ng/mL (> or = 4.0) 04/08/24 14:07 Procalcitonin 0.04 ng/mL 04/06/24 13:06 TSH 0.18 uIU/mL (0.32-4.0) L 04/08/24 06:16 Free T4 1.21 ng/dL (0.71-1.85) 04/06/24 13:06 Urine Color Clarke A 04/06/24 21:13 Urine Appearance Cloudy 04/06/24 21:13 Urine pH 6.5 (5.0-9.0) 04/06/24 21:13 Ur Specific [place] 1.020 (1.005-1.025) 04/06/24 21:13 Urine Protein See Note mg/dL (Neg-Trace) 04/06/24 21:13 Urine Glucose (UA) See Note mg/dL (Negative) 04/06/24 21:13 Urine Ketones Negative mg/dL (Negative) 04/06/24 21:13 Urine Blood Large (3+) (Negative) H 04/06/24 21:13 Urine Nitrite Negative (Negative) 04/06/24 21:13 Ur Leukocyte Esterase Trace (Negative) H 04/06/24 21:13 Urine RBC >20 /HPF (0-2) H 04/06/24 21:13 Urine WBC 0-5 /HPF (0-5) 04/06/24 21:13 Ur Squamous Epith Cells 0-2 /HPF (0-2) 04/06/24 21:13 Urine Bacteria None Seen (None Seen) 04/06/24 21:13 Hyaline Casts 0-2 /LPF (0-2) 04/06/24 21:13 Nasal Screen MRSA (PCR) NEGATIVE (Negative) 04/06/24 23:15 Nasal S. aureus Screen NEGATIVE (Negative) 04/06/24 23:15 Nasal MRSA/S.aureus Interp SEE NOTE 04/06/24 23:15 Random Vancomycin 16.3 mcg/mL (15-20) 04/08/24 18:24 Respiratory Panel Wallace See Note 04/06/24 17:43 Adenovirus (Rapid PCR) Not Detected (Not Detect.) 04/06/24 17:43 B.pert (TEM-PCR) Not Detected (Not Detect.) 04/06/24 17:43 B.parapertussis DNA PCR Not Detected (Not Detect.) 04/06/24 17:43 C. pneumoniae DNA (PCR) Not Detected (Not Detect.) 04/06/24 17:43 Coronavirus OC43 (PCR) Not Detected (Not Detect.) 04/06/24 17:43 Coronavirus HKU1 (PCR) Not Detected (Not Detect.) 04/06/24 17:43 Coronavirus 229E (PCR) Not Detected (Not Detect.) 04/06/24 17:43 Coronavirus NL63 (PCR) Not Detected (Not Detect.) 04/06/24 17:43 Human Metapneumovir PCR Not Detected (Not Detect.) 04/06/24 17:43 Influenza A (RT-PCR) Not Detected (Not Detect.) 04/06/24 17:43 Influenza Type A (PCR) NEGATIVE (Negative) 04/06/24 13:06 Influenza B (RT-PCR) Not Detected (Not Detect.) 04/06/24 17:43 Influenza Type B (PCR) NEGATIVE (Negative) 04/06/24 13:06 M. pneumoniae (PCR) Not Detected (Not Detect.) 04/06/24 17:43 Parainfluenza 1 (PCR) Not Detected (Not Detect.) 04/06/24 17:43 Parainfluenza 2 (PCR) Not Detected (Not Detect.) 04/06/24 17:43 Parainfluenza 3 (PCR) Not Detected (Not Detect.) 04/06/24 17:43 Parainfluenza 4 (PCR) Not Detected (Not Detect.) 04/06/24 17:43 RSV (PCR) Not Detected (Not Detect.) 04/06/24 17:43 RSV RNA Qual (PCR) NEGATIVE (Negative) 04/06/24 13:06 Entero/Rhino (PCR) Not Detected (Not Detect.) 04/06/24 17:43 SARS-CoV-2 RNA (RT-PCR) Not Detected (Not Detect.) 04/06/24 17:43 - Imaging Radiologist's impression: ITS Impressions Chest X-Ray 04/06/24 12:48 IMPRESSION: Patchy opacity in the right midlung new compared to prior CT. This could reflect evolving pneumonia. Electronically signed by: Anderson Ramirez MD 04/06/2024 03:10 PM EDT RP Head CT 04/06/24 13:23 IMPRESSION: No acute intracranial pathology. Electronically signed by: Hiro Caruso MD 04/06/2024 03:22 PM EDT RP Chest CTA 04/08/24 15:58 IMPRESSION: 1. No evidence of pulmonary emboli. 2. Right upper lobe pneumonia with small right pleural effusion. 3. Incidental note made of enlarged thyroid, small hiatal hernia, possible gallstones and indeterminate 2 cm left adrenal nodule. MRI could always be performed for diagnosis. However, this is unchanged in nearly one year's time which speaks towards probable benign adenoma. VTE: negative. Fleischner guidelines were followed. Electronically signed by: Bucky Hyde MD 04/08/2024 06:57 PM EDT RP Assessment and Plan Patient Active problem list reviewed?: Yes (1) Leukocytopenia Status: Chronic Assessment and plan: 1. 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 His ANC is about 400. He has had extensive evaluation at [facility] including a bone marrow aspiration/biopsy in August 2023. He says he is under the care of Dr. Merida. He was told that he did not have any cancer but was unclear as to the cause of leukopenia. He is currently admitted for pneumonia and is receiving IV antibiotics. However his is most concerned about his inability to walk. He went to [facility] earlier this year, he was able to walk until Saturday without any difficulty. He has mild residual weakness in his left lower extremity after a prior CVA which occurred in 2014 and was treated at [facility]. I reviewed report of bone marrow biopsy from [facility]-demonstrated abnormal myeloid maturation, dysplasia was less than 10% and 0% blasts. 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 No high-risk gene mutations like TET2, ASXL1 or DNMT3A. Because of the cytopenia, he was taken off antithyroid medication, methimazole which was prescribed a couple of years ago for Graves disease. Patient has had prolonged duration of infection on 3 occasions since May last year. According to his patient spent a few weeks in [place] this September but he was sick the whole time with upper respiratory symptoms. His ANC remains below 500. 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 - Time Spent With Patient Time Spent with Patient (in minutes): 20
[2024-04-09 10:47] VITALS: BP 131/60; PULSE 83; RESP 18; TEMP 36.3; O2SAT 96
--- NOTE | 2024-04-09 11:54 | HO.PM.IMPN ---
Subjective Subjective Date of Service: 04/09/24 Interval History: He is doing fine, he seems to be a bit more confused in the morning, no sob no fever Physical Exam Vital Signs: Vital Signs: Last Vital Signs Temp 97.3 F 04/09/24 10:47 Pulse 83 04/09/24 10:47 Resp 18 04/09/24 10:47 BP 131/60 04/09/24 10:47 Pulse Ox 96 04/09/24 10:47 O2 Del Method Room Air 04/09/24 10:47 BMI result Body Mass Index 24.2 Objective Data Active Medications Acetaminophen (Acetaminophen 325 Mg Tablet) 650 mg PO Q6H PRN PRN Reason: Pain, Mild (Pain Scale 1-3), fever or headache Atorvastatin Calcium (Atorvastatin Calcium 20 Mg Tablet) 20 mg PO BEDTIME [facility] Last Admin: 04/08/24 19:47 Dose: 20 mg Documented By: AKI Calcium Carbonate (Calcium Carbonate 750 Mg Tab.Chew) 750 mg PO Q4H PRN PRN Reason: Heartburn Fluticasone Propionate (Fluticasone Propionate Nasal 16 Gm [place]) 1 spray NOSTRIL-B DAILY [facility] Last Admin: 04/09/24 08:41 Dose: 1 spray Documented By: DONOVAN Guaifenesin/Codeine Phosphate (Guaifen/Codeine Sf 200/20/10ml 10 Ml Liquid) 10 ml PO Q4H PRN PRN Reason: Cough Last Admin: 04/08/24 19:49 Dose: 10 ml Documented By: AKI Comments: requested by patient for barking cough Azithromycin 500 mg/ Sodium (Chloride) 250 mls @ 125 mls/hr IV DAILY [facility] Last Infusion: 04/09/24 10:40 Dose: Infused Documented By: DONOVAN Piperacillin Sod/Tazobactam (Sod 4.5 gm/ Sodium Chloride) 100 mls @ 200 mls/hr IV Q6H [facility] Last Infusion: 04/09/24 07:00 Dose: Infused Documented By: DONOVAN Magnesium Hydroxide (Milk Of Magnesia 30 Ml Oral.Susp) 30 ml PO DAILY PRN PRN Reason: Constipation Melatonin (Melatonin 3 Mg Tablet) 6 mg PO BEDTIME PRN PRN Reason: Insomnia Sodium Chloride (0.9 % Sodium Chloride Flush 3 Ml Syringe) 3 ml IVFLUSH QSHIFT [facility] Last Admin: 04/09/24 08:36 Dose: 3 ml Documented By: DONOVAN Tamsulosin HCl (Tamsulosin Hcl 0.4 Mg Capsule) 0.4 mg PO BEDTIME [facility] Last Admin: 04/08/24 19:47 Dose: 0.4 mg Documented By: AKI Warfarin Sodium (Warfarin Sodium 5 Mg Tablet) 5 mg PO SUMOTUWETHSA@1800 [facility] Warfarin Sodium (Warfarin Sodium 7.5 Mg Tablet) 7.5 mg PO FR@1800 [facility] Labs 04/09/24 05:58 04/09/24 05:58 Labs: Laboratory Results - last 24 hr 04/08/24 04/08/24 04/08/24 06:16 14:07 18:24 MCV 79.6 L MCH 26.8 L MCHC 33.6 RDW 13.3 Plt Count 167 MPV 9.7 Immature Gran % (Auto) 0.6 H Neut % (Auto) 26.6 L Lymph % (Auto) 53.5 H Levy % (Auto) 17.4 H Eos % (Auto) 1.3 Baso % (Auto) 0.6 Lymph # (Auto) 0.8 L Levy # (Auto) 0.3 Eos # (Auto) 0.0 Baso # (Auto) 0.0 Abs Immat Gran (auto) 0.01 Absolute Neuts (auto) 0.4 L Absolute Nucleated RBC 0.000 Nucleated RBC % (auto) 0.0 Smear Tech's Comments VERIFIED PT 46.5 H INR 4.0 H Anion Gap 15 Estim Creat Clear Calc Estimated GFR Random Glucose Calcium Magnesium 1.9 Iron 33 L TIBC 151 L % Saturation 22 Unsat Iron Binding 118 Ferritin 358 H Lactate Dehydrogenase 248 Vitamin B12 1217 H Folate 9.9 TSH 0.18 L Random Vancomycin 16.3 04/09/24 05:58 MCV 78.1 L MCH 26.5 L MCHC 33.9 RDW 13.2 Plt Count 175 MPV 9.6 Immature Gran % (Auto) Neut % (Auto) Lymph % (Auto) Levy % (Auto) Eos % (Auto) Baso % (Auto) Lymph # (Auto) Levy # (Auto) Eos # (Auto) Baso # (Auto) Abs Immat Gran (auto) Absolute Neuts (auto) Absolute Nucleated RBC 0.000 Nucleated RBC % (auto) 0.0 Smear Tech's Comments PT 49.4 H INR 4.2 H Anion Gap 11 L Estim Creat Clear Calc 70.6 Estimated GFR > 60 Random Glucose 106 Calcium 9.1 Magnesium Iron TIBC % Saturation Unsat Iron Binding Ferritin Lactate Dehydrogenase Vitamin B12 Folate TSH Random Vancomycin Microbiology Microbiology Results: Microbiology 04/06/24 14:02 Blood Culture - Preliminary Blood - Venous No growth after 48 hours. 04/06/24 13:54 Blood Culture - Preliminary Blood - Venous No growth after 48 hours. Assessment and Plan (1) Acute UTI: Status: Acute Plan 82M PMH htn, hld, history of CVA. 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 resolved HTN -amlodipine paroxysmal afib -coumadin, check INR history of cva -coumadin, INR 4.2, hold coumadin today bph flomax chronic leukopenia outpatient hematology follow up history of graves not on meds Deconditioned: PT eval DNR reason for continued hospitalization: awaiting defervensence in sepsis with immunocompromised patient Quality Stroke Does the patient have a stroke diagnosis?: No VTE Prior VTE?: No VTE Risk Level:: Medical - moderate - high VTE Device Contraindication: N/A - Device Ordered VTE Drug Contraindication: N/A - Med Ordered
[2024-04-09] MEDS: Tbo-Filgrastim 300 MCG/0.5 ML SYRINGE SUBCUT (13:36)
[2024-04-09 16:00] VITALS: BP 149/68; PULSE 97; RESP 18; TEMP 36.7; O2SAT 94
[2024-04-09 18:48] VITALS: BP 143/71; PULSE 110; RESP 22; TEMP 37.3; O2SAT 94
--- NOTE | 2024-04-09 18:50 | PC.NURSE ---
Pt had episode sustained vtach for 3 minutes up as high as 203 standing OOB to chair. Pt denies any associated symptoms VSS. Once back to bed HR down to 110 Dr Rogers notified pt resting in bed alarms for safety
[2024-04-09 19:27] VITALS: BP 140/61; PULSE 92; RESP 18; TEMP 36.5; O2SAT 94
[2024-04-09 19:55] LABS: Magnesium 2.1 mg/dL (1.6-2.6)
[2024-04-09] MEDS: guaiFEN/Codeine SF 200/20/10ML 10 ML LIQUID PO (20:22)
[2024-04-09] MEDS: Atorvastatin Calcium 20 MG TABLET PO (20:23)
[2024-04-09] MEDS: Metoprolol Tartrate 25 MG TABLET PO (20:23)
[2024-04-09] MEDS: Tamsulosin HCL 0.4 MG CAPSULE PO (20:23)
[2024-04-09] MEDS: Melatonin 3 MG TABLET 6 MG PO (20:23)
[2024-04-10] VITALS (7 sets, daily range): BP systolic 98–144; BP diastolic 49–65; PULSE 53–79; RESP 16–20; TEMP 36.2–36.9; O2SAT 91–97
[2024-04-10] MEDS: Piperacillin Sodium/Tazobactam 4.5 GM in 0.9 % Sodium Chloride 100 ML IV ×4 (00:02→17:37)
[2024-04-10 07:18] LABS: Hematocrit 33.8 % (42.0-52.0); Hemoglobin 11.3 g/dl (14.0-18.0); Mean Corpuscular HGB Conc 33.4 g/dl (31.0-36.0); Mean Corpuscular Hemoglobin 26.5 pg (27.0-33.0); Mean Corpuscular Volume 79.3 fL (80.0-98.0); Neut%MD 42.4 %; Neutrophils Absolute Auto 1.7 x10*3/uL (2.0-8.3); Platelet Count 186 X10*3/uL (160-400); Prothrombin Time 34.6 SEC (10.9-12.4); Red Blood Count 4.26 X10*6/uL (4.60-5.80); Red Cell Distribution Width 13.4 % (11.0-16.0); WBCANC 4.1 X10*3/uL; White Blood Count 4.1 X10*3/uL (4.8-10.8)
[2024-04-10] MEDS: Fluticasone Propionate Nasal 16 GM SPRAY 1 SPRAY NOSTRIL-B (08:03)
[2024-04-10] MEDS: Azithromycin 500 MG in 0.9 % Sodium Chloride 250 ML 125 MG IV (08:04)
[2024-04-10] MEDS: Metoprolol Tartrate 25 MG TABLET PO ×2 (08:04→20:00)
[2024-04-10 08:08] LABS: Anion Gap 10 (12-20); Blood Urea Nitrogen 16 mg/dL (9-16); Calcium 8.6 mg/dL (8.4-10.2); Carbon Dioxide 27 mmol/L (22-29); Chloride 104 mmol/L (96-108); Creatinine Clr Calc Pharmacy 59.4; Estimated Glomerular Filt Rate > 60; Glucose Random 113 mg/dL (60-115); Potassium 3.2 mmol/L (3.3-5.1); Sodium 138 mmol/L (135-145)
[2024-04-10] MEDS: 0.9 % Sodium Chloride Flush 3 ML SYRINGE IVFLUSH ×2 (08:31→16:02)
--- NOTE | 2024-04-10 10:58 | P.PNIM_ITS ---
Subjective Subjective Date of Service: 04/10/24 Interval History: Less confused today, and doing much better according to Physical Exam 2 Vital Signs: Vital Signs: Last Vital Signs Temp 98.0 F 04/10/24 07:19 Pulse 62 04/10/24 07:19 Resp 18 04/10/24 07:19 BP 119/58 L 04/10/24 07:19 Pulse Ox 94 04/10/24 07:19 O2 Del Method Room Air 04/10/24 07:19 BMI result Body Mass Index 24.2 Const: Other: General: alert, cooperative Resp: CTA bilateral CVS: S1,S2,RRR GI: +BS, NT, no distention Skin: No rash Neuro: motor grossly intact Psych: appropriate affect Objective Data Active Medications Acetaminophen (Acetaminophen 325 Mg Tablet) 650 mg PO Q6H PRN PRN Reason: Pain, Mild (Pain Scale 1-3), fever or headache Atorvastatin Calcium (Atorvastatin Calcium 20 Mg Tablet) 20 mg PO BEDTIME [facility] Last Admin: 04/09/24 20:23 Dose: 20 mg Documented By: AKI Calcium Carbonate (Calcium Carbonate 750 Mg Tab.Chew) 750 mg PO Q4H PRN PRN Reason: Heartburn Fluticasone Propionate (Fluticasone Propionate Nasal 16 Gm [place]) 1 spray NOSTRIL-B DAILY [facility] Last Admin: 04/10/24 08:03 Dose: 1 spray Documented By: SALOME Guaifenesin/Codeine Phosphate (Guaifen/Codeine Sf 200/20/10ml 10 Ml Liquid) 10 ml PO Q4H PRN PRN Reason: Cough Last Admin: 04/09/24 20:22 Dose: 10 ml Documented By: AKI Comments: FOR COUGH Azithromycin 500 mg/ Sodium (Chloride) 250 mls @ 125 mls/hr IV DAILY [facility] Last Admin: 04/10/24 08:04 Dose: 125 mls/hr Documented By: SALOME Piperacillin Sod/Tazobactam (Sod 4.5 gm/ Sodium Chloride) 100 mls @ 200 mls/hr IV Q6H [facility] Last Admin: 04/10/24 05:47 Dose: 100 mls/hr Documented By: AKI Magnesium Hydroxide (Milk Of Magnesia 30 Ml Oral.Susp) 30 ml PO DAILY PRN PRN Reason: Constipation Melatonin (Melatonin 3 Mg Tablet) 6 mg PO BEDTIME PRN PRN Reason: Insomnia Last Admin: 04/09/24 20:23 Dose: 6 mg Documented By: AKI Comments: [place] REQUESTED FOR SLEEP Metoprolol Tartrate (Metoprolol Tartrate 25 Mg Tablet) 25 mg PO BID [facility]; Protocol Last Admin: 04/10/24 08:04 Dose: 25 mg Documented By: SALOME Sodium Chloride (0.9 % Sodium Chloride Flush 3 Ml Syringe) 3 ml IVFLUSH QSHIFT [facility] Last Admin: 04/10/24 08:31 Dose: 3 ml Documented By: SALOME Tamsulosin HCl (Tamsulosin Hcl 0.4 Mg Capsule) 0.4 mg PO BEDTIME [facility] Last Admin: 04/09/24 20:23 Dose: 0.4 mg Documented By: AKI Warfarin Sodium (Warfarin Sodium 2.5 Mg Tablet) 2.5 mg PO SUMOTUWETHSA@1800 [facility] Warfarin Sodium (Warfarin Sodium 1.25 Mg Halftab) 1.25 mg PO Fr@1800 [facility] Warfarin Sodium (Warfarin Sodium 3 Mg Tablet) 3 mg PO Fr@1800 [facility] Labs 04/10/24 06:21 04/10/24 06:21 Labs: Laboratory Results - last 24 hr 04/09/24 04/10/24 05:58 06:21 MCV 79.3 L MCH 26.5 L MCHC 33.4 RDW 13.4 Plt Count 186 MPV 10.0 Absolute Neuts (auto) 1.7 L Absolute Nucleated RBC 0.000 Nucleated RBC % (auto) 0.0 PT 34.6 H D INR 3.0 H Anion Gap 10 L Estim Creat Clear Calc 59.4 Estimated GFR > 60 Random Glucose 113 Calcium 8.6 Magnesium 2.1 Assessment and Plan (1) Acute UTI: Status: Acute Plan 82M PMH htn, hld, history of CVA. 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 resolved HTN -amlodipine paroxysmal afib -coumadin, follow INR history of cva -coumadin, INR 4.2, hold coumadin today bph flomax chronic leukopenia, d/t CCUS (clonal cytopenia of undetermined significance) outpatient f/u at [facility], no indication for chemo history of graves not on meds Deconditioned: PT recommend STR DNR reason for continued hospitalization: awaiting defervensence in sepsis with immunocompromised patient Plan discussed with at bedside Quality Stroke Does the patient have a stroke diagnosis?: No VTE Prior VTE?: No VTE Risk Level:: Medical - moderate - high VTE Device Contraindication: N/A - Device Ordered VTE Drug Contraindication: N/A - Med Ordered
[2024-04-10] MEDS: Potassium Chloride Packet 20 MEQ PACKET 40 MEQ PO (13:24)
--- NOTE | 2024-04-10 16:11 | MHC.CM.PN ---
EMR REVIEWED, CM MET W/PT AT BEDSIDE TO DISCUSS DISPO, PT ALERT, APPEARS MUCH IMPROVED FROM ADMISSION, PT REPORTING HE DOESN'T LIKE EXERCISE HOWEVER HE WILL GO TO A REHAB IF THATS WHAT HIS AMY WANTS HIM TO DO, PT REPORTS CM SHOULD CONTACT AMY TO DISCUSS DETAILS, CM CONTACTED AMY AT 4:02PM, AMY REPORTS SHE PREFERS PT GO TO [facility] AND REFERAL EXPANDED TO INCLUDE PREFERRED SNF, CM WILL CONT TO FOLLOW DC NEEDS.
[2024-04-10] MEDS: Warfarin Sodium 3 MG TABLET PO (17:39)
[2024-04-10] MEDS: Warfarin Sodium 1.25 MG HALFTAB PO (17:39)
[2024-04-10 19:43] LABS: Strep Pneumo Ag urine Not Detected (Not Detected)
[2024-04-10] MEDS: Tamsulosin HCL 0.4 MG CAPSULE PO (20:00)
[2024-04-10] MEDS: Atorvastatin Calcium 20 MG TABLET PO (20:00)
[2024-04-11] MEDS: Piperacillin Sodium/Tazobactam 4.5 GM in 0.9 % Sodium Chloride 100 ML IV ×2 (00:11→05:45)
[2024-04-11] MEDS: 0.9 % Sodium Chloride Flush 3 ML SYRINGE IVFLUSH ×3 (00:12→21:26)
[2024-04-11 03:01] VITALS: BP 129/60; PULSE 60; RESP 18; TEMP 36.6; O2SAT 92
[2024-04-11 07:29] VITALS: BP 125/58; PULSE 62; RESP 20; TEMP 36.2; O2SAT 93
[2024-04-11 07:51] LABS: Neut%MD 39.3 %; WBCANC 2.5 X10*3/uL
[2024-04-11 07:53] LABS: Prothrombin Time 23.5 SEC (10.9-12.4)
[2024-04-11 07:54] LABS: Hematocrit 33.6 % (42.0-52.0); Hemoglobin 10.9 g/dl (14.0-18.0); Mean Corpuscular HGB Conc 32.4 g/dl (31.0-36.0); Platelet Count 183 X10*3/uL (160-400); Red Cell Distribution Width 13.6 % (11.0-16.0)
[2024-04-11 07:59] LABS: Anion Gap 11 (12-20); Blood Urea Nitrogen 16 mg/dL (9-16); Calcium 8.7 mg/dL (8.4-10.2); Carbon Dioxide 24 mmol/L (22-29); Chloride 106 mmol/L (96-108); Creatinine Clr Calc Pharmacy 64.8; Estimated Glomerular Filt Rate > 60; Glucose Random 107 mg/dL (60-115); Potassium 3.4 mmol/L (3.3-5.1); Sodium 138 mmol/L (135-145); White Blood Count 2.5 X10*3/uL (4.8-10.8)
[2024-04-11] MEDS: Azithromycin 500 MG in 0.9 % Sodium Chloride 250 ML 125 MG IV (08:04)
[2024-04-11] MEDS: Metoprolol Tartrate 25 MG TABLET PO (08:04)
[2024-04-11] MEDS: Fluticasone Propionate Nasal 16 GM SPRAY 1 SPRAY NOSTRIL-B (08:11)
[2024-04-11 10:58] LABS: Legionella Ag Urine Not Detected (Not Detected)
--- NOTE | 2024-04-11 11:21 | HO.PM.IMPN ---
Subjective Subjective Date of Service: 04/11/24 Interval History: Doing well, no new issues. Physical Exam Vital Signs: Vital Signs: Last Vital Signs Temp 97.2 F 04/11/24 07:29 Pulse 62 04/11/24 07:29 Resp 20 04/11/24 07:29 BP 125/58 L 04/11/24 07:29 Pulse Ox 93 04/11/24 07:29 O2 Del Method Room Air 04/11/24 07:29 BMI result Body Mass Index 24.2 Objective Data Active Medications Acetaminophen (Acetaminophen 325 Mg Tablet) 650 mg PO Q6H PRN PRN Reason: Pain, Mild (Pain Scale 1-3), fever or headache Atorvastatin Calcium (Atorvastatin Calcium 20 Mg Tablet) 20 mg PO BEDTIME [facility] Last Admin: 04/10/24 20:00 Dose: 20 mg Documented By: AKI Calcium Carbonate (Calcium Carbonate 750 Mg Tab.Chew) 750 mg PO Q4H PRN PRN Reason: Heartburn Fluticasone Propionate (Fluticasone Propionate Nasal 16 Gm [place]) 1 spray NOSTRIL-B DAILY [facility] Last Admin: 04/11/24 08:11 Dose: 1 spray Documented By: DONOVAN Guaifenesin/Codeine Phosphate (Guaifen/Codeine Sf 200/20/10ml 10 Ml Liquid) 10 ml PO Q4H PRN PRN Reason: Cough Last Admin: 04/09/24 20:22 Dose: 10 ml Documented By: AKI Comments: FOR COUGH Azithromycin 500 mg/ Sodium (Chloride) 250 mls @ 125 mls/hr IV DAILY [facility] Last Infusion: 04/11/24 11:09 Dose: Infused Documented By: DONOVAN Piperacillin Sod/Tazobactam (Sod 4.5 gm/ Sodium Chloride) 100 mls @ 200 mls/hr IV Q6H [facility] Last Infusion: 04/11/24 07:00 Dose: Infused Documented By: DONOVAN Magnesium Hydroxide (Milk Of Magnesia 30 Ml Oral.Susp) 30 ml PO DAILY PRN PRN Reason: Constipation Melatonin (Melatonin 3 Mg Tablet) 6 mg PO BEDTIME PRN PRN Reason: Insomnia Last Admin: 04/09/24 20:23 Dose: 6 mg Documented By: AKI Comments: [place] REQUESTED FOR SLEEP Metoprolol Tartrate (Metoprolol Tartrate 25 Mg Tablet) 25 mg PO BID [facility]; Protocol Last Admin: 04/11/24 08:04 Dose: 25 mg Documented By: DONOVAN Sodium Chloride (0.9 % Sodium Chloride Flush 3 Ml Syringe) 3 ml IVFLUSH QSHIFT [facility] Last Admin: 04/11/24 08:04 Dose: 3 ml Documented By: DONOVAN Tamsulosin HCl (Tamsulosin Hcl 0.4 Mg Capsule) 0.4 mg PO BEDTIME [facility] Last Admin: 04/10/24 20:00 Dose: 0.4 mg Documented By: AKI Warfarin Sodium (Warfarin Sodium 2.5 Mg Tablet) 2.5 mg PO SUMOTUWETHSA@1800 [facility] Warfarin Sodium (Warfarin Sodium 1.25 Mg Halftab) 1.25 mg PO Fr@1800 [facility] Last Admin: 04/10/24 17:39 Dose: 1.25 mg Documented By: SALOME Warfarin Sodium (Warfarin Sodium 3 Mg Tablet) 3 mg PO Fr@1800 [facility] Last Admin: 04/10/24 17:39 Dose: 3 mg Documented By: SALOME Labs 04/11/24 06:49 04/11/24 06:49 Labs: Laboratory Results - last 24 hr 04/06/24 04/11/24 23:20 06:49 MCV 80.0 MCH 26.0 L MCHC 32.4 RDW 13.6 Plt Count 183 MPV 10.0 Absolute Neuts (auto) 1.0 L Absolute Nucleated RBC 0.000 Nucleated RBC % (auto) 0.0 PT 23.5 H D INR 2.0 H Anion Gap 11 L Estim Creat Clear Calc 64.8 Estimated GFR > 60 Random Glucose 107 Calcium 8.7 Hold Yellow Top See Note Ur L.pneumophila Ag Not Detected Ur Strep pneumoniae Ag Not Detected Assessment and Plan (1) Acute UTI: Status: Acute Plan 82M PMH htn, hld, history of CVA. 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 resolved HTN -amlodipine paroxysmal afib -coumadin, follow INR history of cva -coumadin, INR 4.2, hold coumadin today bph urinary retention, cohen, can try voiding try flomax chronic leukopenia, d/t CCUS (clonal cytopenia of undetermined significance) outpatient f/u at [facility], no indication for chemo history of graves not on meds Deconditioned: PT recommend STR DNR reason for continued hospitalization: awaiting defervensence in sepsis with immunocompromised patient Plan discussed with at bedside. Quality Stroke Does the patient have a stroke diagnosis?: No VTE Prior VTE?: No VTE Risk Level:: Medical - moderate - high VTE Device Contraindication: N/A - Device Ordered VTE Drug Contraindication: N/A - Med Ordered
[2024-04-11 12:00] VITALS: BP 125/58; PULSE 60; RESP 20; TEMP 36.6; O2SAT 91
[2024-04-11 15:48] VITALS: BP 129/56; PULSE 56; RESP 18; TEMP 36.6; O2SAT 97
[2024-04-11] MEDS: Warfarin Sodium 2.5 MG TABLET PO (18:49)
[2024-04-11 20:00] VITALS: BP 146/67; PULSE 64; RESP 18; TEMP 36.7; O2SAT 93
[2024-04-11 21:24] VITALS: BP 143/65; PULSE 58
[2024-04-11] MEDS: Tamsulosin HCL 0.4 MG CAPSULE PO (21:26)
[2024-04-11] MEDS: Atorvastatin Calcium 20 MG TABLET PO (21:26)
[2024-04-11] MEDS: Amoxicillin/Potassium Clav 875 MG TABLET PO (21:26)
[2024-04-11] MEDS: Melatonin 3 MG TABLET 6 MG PO (21:26)
[2024-04-12] VITALS (9 sets, daily range): BP systolic 109–156; BP diastolic 48–72; PULSE 54–71; RESP 12–20; TEMP 36.1–36.6; O2SAT 92–96
[2024-04-12 06:37] LABS: INTERNATIONAL NORM RATIO 1.7 (0.9-1.1); Prothrombin Time 20.4 SEC (10.9-12.4)
[2024-04-12 06:54] LABS: Hematocrit 31.6 % (42.0-52.0); Hemoglobin 10.6 g/dl (14.0-18.0); Mean Corpuscular HGB Conc 33.5 g/dl (31.0-36.0); Mean Corpuscular Hemoglobin 26.8 pg (27.0-33.0); Mean Corpuscular Volume 79.8 fL (80.0-98.0); Mean Platelet Volume 9.6 fL (9.4-12.4); Platelet Count 166 X10*3/uL (160-400); Red Blood Count 3.96 X10*6/uL (4.60-5.80); Red Cell Distribution Width 13.4 % (11.0-16.0)
[2024-04-12 07:19] LABS: Tacrolimus Prograf <1.0 mcg/L
[2024-04-12 07:57] LABS: Neut%MD 35.2 %; Neutrophils Absolute Auto 0.7 x10*3/uL (2.0-8.3)
--- NOTE | 2024-04-12 09:50 | HO.PM.IMPN ---
Subjective Subjective Date of Service: 04/12/24 Interval History: Doing well, no new issues. report loose stool more alert and oriented today Physical Exam Vital Signs: Vital Signs: Last Vital Signs Temp 97.5 F 04/12/24 07:44 Pulse 70 04/12/24 07:44 Resp 20 04/12/24 07:44 BP 131/58 L 04/12/24 07:44 Pulse Ox 95 04/12/24 07:44 O2 Del Method Room Air 04/12/24 07:44 BMI result Body Mass Index 24.2 Const: Other: General: alert, cooperative, oriented x 3 Resp: CTA bilateral CVS: S1,S2,RRR GI: +BS, NT, no distention Skin: No rash Neuro: motor grossly intact Psych: appropriate affect Objective Data Active Medications Acetaminophen (Acetaminophen 325 Mg Tablet) 650 mg PO Q6H PRN PRN Reason: Pain, Mild (Pain Scale 1-3), fever or headache Amoxicillin/Clavulanate Potassium (Amoxicillin/Potassium Clav 875 Mg Tablet) 875 mg PO BID [facility] Last Admin: 04/11/24 21:26 Dose: 875 mg Documented By: GABRIEL Atorvastatin Calcium (Atorvastatin Calcium 20 Mg Tablet) 20 mg PO BEDTIME [facility] Last Admin: 04/11/24 21:26 Dose: 20 mg Documented By: GABRIEL Calcium Carbonate (Calcium Carbonate 750 Mg Tab.Chew) 750 mg PO Q4H PRN PRN Reason: Heartburn Fluticasone Propionate (Fluticasone Propionate Nasal 16 Gm [place]) 1 spray NOSTRIL-B DAILY [facility] Last Admin: 04/11/24 08:11 Dose: 1 spray Documented By: DONOVAN Magnesium Hydroxide (Milk Of Magnesia 30 Ml Oral.Susp) 30 ml PO DAILY PRN PRN Reason: Constipation Melatonin (Melatonin 3 Mg Tablet) 6 mg PO BEDTIME PRN PRN Reason: Insomnia Last Admin: 04/11/24 21:26 Dose: 6 mg Documented By: GABRIEL Metoprolol Tartrate (Metoprolol Tartrate 25 Mg Tablet) 25 mg PO BID [facility]; Protocol Last Admin: 04/11/24 21:24 Dose: Not Given Documented By: GABRIEL Non-Admin Reason: Held for HR <60 per MAR Parameters Sodium Chloride (0.9 % Sodium Chloride Flush 3 Ml Syringe) 3 ml IVFLUSH QSHIFT [facility] Last Admin: 04/11/24 21:26 Dose: 3 ml Documented By: GABRIEL Tamsulosin HCl (Tamsulosin Hcl 0.4 Mg Capsule) 0.4 mg PO BEDTIME [facility] Last Admin: 04/11/24 21:26 Dose: 0.4 mg Documented By: GABRIEL Warfarin Sodium (Warfarin Sodium 2.5 Mg Tablet) 2.5 mg PO SUMOTUWETHSA@1800 [facility] Last Admin: 04/11/24 18:49 Dose: 2.5 mg Documented By: DONOVAN Warfarin Sodium (Warfarin Sodium 1.25 Mg Halftab) 1.25 mg PO Fr@1800 [facility] Last Admin: 04/10/24 17:39 Dose: 1.25 mg Documented By: SALOME Warfarin Sodium (Warfarin Sodium 3 Mg Tablet) 3 mg PO Fr@1800 [facility] Last Admin: 04/10/24 17:39 Dose: 3 mg Documented By: SALOME Labs 04/12/24 06:17 04/11/24 06:49 Labs: Laboratory Results - last 24 hr 04/06/24 04/11/24 04/12/24 23:20 06:49 06:17 MCV 79.8 L MCH 26.8 L MCHC 33.5 RDW 13.4 Plt Count 166 MPV 9.6 Absolute Neuts (auto) 0.7 L Absolute Nucleated RBC 0.000 Nucleated RBC % (auto) 0.0 PT 20.4 H INR 1.7 H Tacrolimus <1.0 L Ur L.pneumophila Ag Not Detected 04/12/24 08:22 MCV MCH MCHC RDW Plt Count MPV Absolute Neuts (auto) Cancelled Absolute Nucleated RBC Nucleated RBC % (auto) PT INR Tacrolimus Ur L.pneumophila Ag Microbiology Microbiology Results: Microbiology 04/06/24 14:02 Blood Culture - Final Blood - Venous No growth after 5 days. 04/06/24 13:54 Blood Culture - Final Blood - Venous No growth after 5 days. Assessment and Plan (1) Acute UTI: Status: Acute Plan 82M PMH htn, hld, history of CVA. 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 resolved HTN -amlodipine paroxysmal afib -coumadin, follow INR 1.7 increase coumdin today history of cva -coumadin, INR 4.2, hold coumadin today bph urinary retention, cohen, can try voiding try flomax chronic leukopenia, d/t CCUS (clonal cytopenia of undetermined significance) outpatient f/u at [facility], no indication for chemo history of graves not on meds ? not sure why last TSH 0.18 on 04/08. Last Ft4 within normal Deconditioned: PT recommend STR DNR reason for continued hospitalization: awaiting defervensence in sepsis with immunocompromised patient Plan discussed with at bedside. Quality Stroke Does the patient have a stroke diagnosis?: No VTE Prior VTE?: No VTE Risk Level:: Medical - moderate - high VTE Device Contraindication: N/A - Device Ordered VTE Drug Contraindication: N/A - Med Ordered
[2024-04-12] MEDS: 0.9 % Sodium Chloride Flush 3 ML SYRINGE IVFLUSH ×3 (09:58→19:41)
[2024-04-12] MEDS: Amoxicillin/Potassium Clav 875 MG TABLET PO ×2 (09:58→22:36)
[2024-04-12] MEDS: Fluticasone Propionate Nasal 16 GM SPRAY 1 SPRAY NOSTRIL-B (09:59)
[2024-04-12] MEDS: Metoprolol Tartrate 25 MG TABLET PO ×2 (09:59→22:36)
[2024-04-12 12:18] LABS: CDiff Gene PCR NEGATIVE (Negative)
[2024-04-12] MEDS: Tbo-Filgrastim 300 MCG/0.5 ML SYRINGE SUBCUT (14:31)
[2024-04-12] MEDS: Warfarin Sodium 5 MG TABLET PO (18:03)
[2024-04-12] MEDS: ondansetron HCL 4 MG/2 ML VIAL IVPUSH (19:41)
[2024-04-12] MEDS: Metoclopramide HCl 10 MG/2 ML VIAL IVPUSH (21:45)
[2024-04-12] MEDS: Tamsulosin HCL 0.4 MG CAPSULE PO (22:38)
[2024-04-12] MEDS: Benzonatate 100 MG CAPSULE 200 MG PO (22:38)
[2024-04-12] MEDS: Atorvastatin Calcium 20 MG TABLET PO (22:38)
[2024-04-12] MEDS: Melatonin 3 MG TABLET 6 MG PO (22:39)
[2024-04-13] VITALS (11 sets, daily range): BP systolic 113–150; BP diastolic 54–69; PULSE 60–76; RESP 18–20; TEMP 36.2–36.8; O2SAT 90–96
[2024-04-13] MEDS: OLANZapine 10 MG VIAL 5 MG IM (00:32)
--- NOTE | 2024-04-13 00:45 | PC.NURSE ---
Addendum entered by Evi Moses RN 04/13/24 05:45: Patient slept approximately five hours after IM zyprexa. Has only attempted to get OOB once so far this morning. Needs again addressed; pt repositioned, given fresh water, cohen patency ensured and emptied, pt denies BM need, pain, or other complaints. Patient resting in bed appearing comfortable and without any noted distress at this time. Bed alarm and VMT continue. 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 Pt also found multiple times pulling on his cohen catheter. Pt stated its day time and time to get up on multiple occasions when staff have responded to the room following VMT alerts for safety concerns. Patient denies pain. Cohen is intact and patent and functioning. Pt denies needing to have a BM. Pt ambulated in room with staff. Pt was assisted back to bed and repositioned with warm blankets multiple times. Despite these interventions and needs being met, the patient remains impulsive and unable to maintain safety. Covering Dr. Hill notified. IM zyprexa ordered. Kitchen Designer discussed concerns of increasing confusion and need to sleep at night and be awake during the day to decrease confusion and delirium, discussed zyprexa to which the patient was calm and agreeable to for senior grant writer. Administered in left deltoid per patient request with effectiveness pending at this time. Bed alarm, in-room camera, plan of care continues.
[2024-04-13 06:23] LABS: Hematocrit 32.8 % (42.0-52.0); Hemoglobin 10.8 g/dl (14.0-18.0); Mean Corpuscular HGB Conc 32.9 g/dl (31.0-36.0); Mean Corpuscular Hemoglobin 26.3 pg (27.0-33.0); Mean Platelet Volume 10.3 fL (9.4-12.4); Neut%MD 44.8 %; Platelet Count 172 X10*3/uL (160-400); Red Cell Distribution Width 13.5 % (11.0-16.0); WBCANC 4.4 X10*3/uL; White Blood Count 4.4 X10*3/uL (4.8-10.8)
[2024-04-13 06:25] LABS: INTERNATIONAL NORM RATIO 1.6 (0.9-1.1); Prothrombin Time 18.6 SEC (10.9-12.4)
[2024-04-13 06:51] LABS: Anion Gap 11 (12-20); Blood Urea Nitrogen 13 mg/dL (9-16); Calcium 8.8 mg/dL (8.4-10.2); Carbon Dioxide 23 mmol/L (22-29); Chloride 105 mmol/L (96-108); Creatinine Clr Calc Pharmacy 76.6; Estimated Glomerular Filt Rate > 60; Glucose Random 105 mg/dL (60-115); Potassium 3.5 mmol/L (3.3-5.1); Sodium 135 mmol/L (135-145)
[2024-04-13] MEDS: Benzonatate 100 MG CAPSULE 200 MG PO ×2 (08:54→22:13)
[2024-04-13] MEDS: Fluticasone Propionate Nasal 16 GM SPRAY 1 SPRAY NOSTRIL-B (08:54)
[2024-04-13] MEDS: Amoxicillin/Potassium Clav 875 MG TABLET PO ×2 (08:55→22:11)
[2024-04-13] MEDS: 0.9 % Sodium Chloride Flush 3 ML SYRINGE IVFLUSH ×3 (08:55→22:13)
[2024-04-13] MEDS: Metoprolol Tartrate 25 MG TABLET PO ×2 (08:55→22:08)
[2024-04-13 10:24] LABS: Copper, plasma 138 mcg/dL (70-175)
[2024-04-13 10:39] LABS: IgA 542 mg/dL (70-320); IgG 1857 mg/dL (600-1540); IgM 83 mg/dL (50-300)
--- NOTE | 2024-04-13 10:50 | HO.PM.IMPN ---
Subjective Subjective Date of Service: 04/13/24 Interval History: Pt was delirious overnight and got Zyprexa, he's better this morning with no new complaint Physical Exam Vital Signs: Vital Signs: Last Vital Signs Temp 97.1 F 04/13/24 07:12 Pulse 76 04/13/24 07:12 Resp 18 04/13/24 07:12 BP 136/60 04/13/24 07:12 Pulse Ox 92 04/13/24 07:12 O2 Del Method Room Air 04/13/24 07:12 BMI result Body Mass Index 24.2 Const: Other: General: alert, cooperative, oriented x 2 Resp: CTA bilateral CVS: S1,S2,RRR GI: +BS, NT, no distention Skin: No rash Neuro: motor grossly intact Psych: appropriate affect Objective Data Active Medications Acetaminophen (Acetaminophen 325 Mg Tablet) 650 mg PO Q6H PRN PRN Reason: Pain, Mild (Pain Scale 1-3), fever or headache Amoxicillin/Clavulanate Potassium (Amoxicillin/Potassium Clav 875 Mg Tablet) 875 mg PO BID [facility] Last Admin: 04/13/24 08:55 Dose: 875 mg Documented By: JUAN RAMON Atorvastatin Calcium (Atorvastatin Calcium 20 Mg Tablet) 20 mg PO BEDTIME [facility] Last Admin: 04/12/24 22:38 Dose: 20 mg Documented By: GABRIEL Benzonatate (Benzonatate 100 Mg Capsule) 200 mg PO TID PRN PRN Reason: Cough Last Admin: 04/13/24 08:54 Dose: 200 mg Documented By: JUAN RAMON Calcium Carbonate (Calcium Carbonate 750 Mg Tab.Chew) 750 mg PO Q4H PRN PRN Reason: Heartburn Fluticasone Propionate (Fluticasone Propionate Nasal 16 Gm [place]) 1 spray NOSTRIL-B DAILY [facility] Last Admin: 04/13/24 08:54 Dose: 1 spray Documented By: JUAN RAMON Guaifenesin (Guaifenesin 100 Mg/5 Ml 5 Ml Liquid) 5 ml PO Q6H PRN PRN Reason: Cough Magnesium Hydroxide (Milk Of Magnesia 30 Ml Oral.Susp) 30 ml PO DAILY PRN PRN Reason: Constipation Melatonin (Melatonin 3 Mg Tablet) 6 mg PO BEDTIME PRN PRN Reason: Insomnia Last Admin: 04/12/24 22:39 Dose: 6 mg Documented By: GABRIEL Metoprolol Tartrate (Metoprolol Tartrate 25 Mg Tablet) 25 mg PO BID [facility]; Protocol Last Admin: 04/13/24 08:55 Dose: 25 mg Documented By: JUAN RAMON Ondansetron HCl (Ondansetron Hcl 4 Mg/2 Ml Vial) 4 mg IVPUSH Q6H PRN PRN Reason: Nausea and Vomiting Last Admin: 04/12/24 19:41 Dose: 4 mg Documented By: GABRIEL Sodium Chloride (0.9 % Sodium Chloride Flush 3 Ml Syringe) 3 ml IVFLUSH QSHIFT [facility] Last Admin: 04/13/24 08:55 Dose: 3 ml Documented By: JUAN RAMON Tamsulosin HCl (Tamsulosin Hcl 0.4 Mg Capsule) 0.4 mg PO BEDTIME [facility] Last Admin: 04/12/24 22:38 Dose: 0.4 mg Documented By: GABRIEL Warfarin Sodium (Warfarin Sodium 2.5 Mg Tablet) 2.5 mg PO SUMOTUWETHSA@1800 [facility] Last Admin: 04/11/24 18:49 Dose: 2.5 mg Documented By: DONOVAN Warfarin Sodium (Warfarin Sodium 1.25 Mg Halftab) 1.25 mg PO Fr@1800 [facility] Last Admin: 04/10/24 17:39 Dose: 1.25 mg Documented By: SALOME Warfarin Sodium (Warfarin Sodium 3 Mg Tablet) 3 mg PO Fr@1800 [facility] Last Admin: 04/10/24 17:39 Dose: 3 mg Documented By: SALOME Labs 04/13/24 05:50 04/13/24 05:50 Labs: Laboratory Results - last 24 hr 04/08/24 04/09/24 04/12/24 14:07 08:50 10:20 MCV MCH MCHC RDW Plt Count MPV Absolute Neuts (auto) Absolute Nucleated RBC Nucleated RBC % (auto) PT INR Anion Gap Estim Creat Clear Calc Estimated GFR Random Glucose Calcium Plasma Copper 138 IgG Total 1857 H IgA Total 542 H IgM 83 JUAN PABLO Interpretation SEE NOTE C. difficile Tox B Gene NEGATIVE 04/13/24 05:50 MCV 80.0 MCH 26.3 L MCHC 32.9 RDW 13.5 Plt Count 172 MPV 10.3 Absolute Neuts (auto) 2.0 Absolute Nucleated RBC 0.000 Nucleated RBC % (auto) 0.0 PT 18.6 H INR 1.6 H Anion Gap 11 L Estim Creat Clear Calc 76.6 Estimated GFR > 60 Random Glucose 105 Calcium 8.8 Plasma Copper IgG Total IgA Total IgM JUAN PABLO Interpretation C. difficile Tox B Gene Assessment and Plan (1) Acute UTI: Status: Acute Plan 82M PMH htn, hld, history of CVA. 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 resolved HTN -amlodipine paroxysmal afib, h/o CVA -has been on coumadin with variable levels, -change to to Eliquis BPH urinary retention, cohen, can try voiding try flomax. history of graves not on meds ? not sure why last TSH 0.18 on 04/08. Last Ft4 within normal Deconditioned: PT recommend STR DNR reason for continued hospitalization: awaiting defervensence in sepsis with immunocompromised patient Plan discussed with at bedside. Quality Stroke Does the patient have a stroke diagnosis?: No VTE Prior VTE?: No VTE Risk Level:: Medical - moderate - high VTE Device Contraindication: N/A - Device Ordered VTE Drug Contraindication: N/A - Med Ordered
--- NOTE | 2024-04-13 11:20 | MHC.CM.PN ---
CM met with pt.s to discuss DCP, and that pt was accepted for STR at [facility]. Pt.'w said she cannot drive there. CM expanded search for STR, barrier's are: distance for pt,s to drive, and insurance.
[2024-04-13] MEDS: Apixaban 5 MG TABLET PO ×2 (12:31→22:12)
[2024-04-13] MEDS: Melatonin 3 MG TABLET 6 MG PO (22:11)
[2024-04-13] MEDS: Tamsulosin HCL 0.4 MG CAPSULE PO (22:12)
[2024-04-13] MEDS: Atorvastatin Calcium 20 MG TABLET PO (22:12)
[2024-04-14] VITALS (7 sets, daily range): BP systolic 109–151; BP diastolic 41–68; PULSE 60–83; RESP 17–20; TEMP 36.1–37.1; O2SAT 91–97
[2024-04-14 07:24] LABS: Hemoglobin 11.3 g/dl (14.0-18.0); Mean Corpuscular HGB Conc 33.2 g/dl (31.0-36.0); Mean Corpuscular Hemoglobin 26.4 pg (27.0-33.0); Mean Corpuscular Volume 79.4 fL (80.0-98.0); Mean Platelet Volume 9.5 fL (9.4-12.4); Neut%MD 49.8 %; Neutrophils Absolute Auto 1.9 x10*3/uL (2.0-8.3); Platelet Count 182 X10*3/uL (160-400); Red Blood Count 4.28 X10*6/uL (4.60-5.80); WBCANC 3.7 X10*3/uL; White Blood Count 3.7 X10*3/uL (4.8-10.8)
[2024-04-14 07:44] LABS: Anion Gap 11 (12-20); Blood Urea Nitrogen 12 mg/dL (9-16); Calcium 8.8 mg/dL (8.4-10.2); Carbon Dioxide 23 mmol/L (22-29); Chloride 107 mmol/L (96-108); Creatinine Clr Calc Pharmacy 76.6; Estimated Glomerular Filt Rate > 60; Glucose Random 120 mg/dL (60-115); Potassium 3.3 mmol/L (3.3-5.1); Sodium 138 mmol/L (135-145)
[2024-04-14] MEDS: Metoprolol Tartrate 25 MG TABLET PO ×2 (10:45→20:17)
[2024-04-14] MEDS: Amoxicillin/Potassium Clav 875 MG TABLET PO ×2 (10:45→20:18)
[2024-04-14] MEDS: 0.9 % Sodium Chloride Flush 3 ML SYRINGE IVFLUSH ×3 (10:46→20:18)
[2024-04-14] MEDS: Apixaban 5 MG TABLET PO ×2 (10:46→20:17)
[2024-04-14] MEDS: Benzonatate 100 MG CAPSULE 200 MG PO (10:51)
[2024-04-14] MEDS: Fluticasone Propionate Nasal 16 GM SPRAY 1 SPRAY NOSTRIL-B (12:17)
--- NOTE | 2024-04-14 12:45 | P.PNIM_ITS ---
Subjective Subjective Date of Service: 04/14/24 Interval History: Patient is looking good today, sitting in chair eating breakfast still with some non productive cough Physical Exam 2 Vital Signs: Vital Signs: Last Vital Signs Temp 97.3 F 04/14/24 11:31 Pulse 75 04/14/24 11:31 Resp 18 04/14/24 11:31 BP 138/61 04/14/24 11:31 Pulse Ox 93 04/14/24 11:31 O2 Del Method Room Air 04/14/24 11:31 BMI result Body Mass Index 24.2 Const: Other: General: alert, cooperative, oriented x 2 Resp: CTA bilateral CVS: S1,S2,RRR GI: +BS, NT, no distention Skin: No rash Neuro: motor grossly intact Psych: appropriate affect Objective Data Active Medications Acetaminophen (Acetaminophen 325 Mg Tablet) 650 mg PO Q6H PRN PRN Reason: Pain, Mild (Pain Scale 1-3), fever or headache Amoxicillin/Clavulanate Potassium (Amoxicillin/Potassium Clav 875 Mg Tablet) 875 mg PO BID [facility] Last Admin: 04/14/24 10:45 Dose: 875 mg Documented By: HAILEE Apixaban (Apixaban 5 Mg Tablet) 5 mg PO BID [facility] Last Admin: 04/14/24 10:46 Dose: 5 mg Documented By: HAILEE Atorvastatin Calcium (Atorvastatin Calcium 20 Mg Tablet) 20 mg PO BEDTIME [facility] Last Admin: 04/13/24 22:12 Dose: 20 mg Documented By: SUPPLEK Benzonatate (Benzonatate 100 Mg Capsule) 200 mg PO TID PRN PRN Reason: Cough Last Admin: 04/14/24 10:51 Dose: 200 mg Documented By: HAILEE Calcium Carbonate (Calcium Carbonate 750 Mg Tab.Chew) 750 mg PO Q4H PRN PRN Reason: Heartburn Fluticasone Propionate (Fluticasone Propionate Nasal 16 Gm Slovan) 1 spray NOSTRIL-B DAILY [facility] Last Admin: 04/14/24 12:17 Dose: 1 spray Documented By: HAILEE Guaifenesin (Guaifenesin 100 Mg/5 Ml 5 Ml Liquid) 5 ml PO Q6H PRN PRN Reason: Cough Magnesium Hydroxide (Milk Of Magnesia 30 Ml Oral.Susp) 30 ml PO DAILY PRN PRN Reason: Constipation Melatonin (Melatonin 3 Mg Tablet) 6 mg PO BEDTIME PRN PRN Reason: Insomnia Last Admin: 04/13/24 22:11 Dose: 6 mg Documented By: JOSEPH Metoprolol Tartrate (Metoprolol Tartrate 25 Mg Tablet) 25 mg PO BID [facility]; Protocol Last Admin: 04/14/24 10:45 Dose: 25 mg Documented By: HAILEE Ondansetron HCl (Ondansetron Hcl 4 Mg/2 Ml Vial) 4 mg IVPUSH Q6H PRN PRN Reason: Nausea and Vomiting Last Admin: 04/12/24 19:41 Dose: 4 mg Documented By: GABRIEL Sodium Chloride (0.9 % Sodium Chloride Flush 3 Ml Syringe) 3 ml IVFLUSH QSHIFT [facility] Last Admin: 04/14/24 10:46 Dose: 3 ml Documented By: HAILEE Tamsulosin HCl (Tamsulosin Hcl 0.4 Mg Capsule) 0.4 mg PO BEDTIME [facility] Last Admin: 04/13/24 22:12 Dose: 0.4 mg Documented By: JOSEPH Labs 04/15/24 06:49 04/15/24 06:49 Labs: Laboratory Results - last 24 hr 04/14/24 06:10 MCV 79.4 L MCH 26.4 L MCHC 33.2 RDW 14.0 Plt Count 182 MPV 9.5 Absolute Neuts (auto) 1.9 L Absolute Nucleated RBC 0.000 Nucleated RBC % (auto) 0.0 Anion Gap 11 L Estim Creat Clear Calc 76.6 Estimated GFR > 60 Random Glucose 120 H Calcium 8.8 Assessment and Plan (1) Acute UTI: Status: Acute Plan 82M PMH htn, hld, history of CVA. 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 after 2 doses of granix somonolence--d/t zyprexa. resolved HTN -amlodipine paroxysmal afib, h/o CVA -has been on coumadin with variable levels, -change to to Eliquis BPH urinary retention, cohen, can try voiding try flomax. history of graves not on meds ? not sure why last TSH 0.18 on 04/08. Last Ft4 within normal Deconditioned: PT recommend STR DNR reason for continued hospitalization: awaiting defervensence in sepsis with immunocompromised patient Plan discussed with at bedside. Quality Stroke Does the patient have a stroke diagnosis?: No VTE Prior VTE?: No VTE Risk Level:: Medical - moderate - high VTE Device Contraindication: N/A - Device Ordered VTE Drug Contraindication: N/A - Med Ordered
[2024-04-14] MEDS: Doxycycline Monohydrate 100 MG CAPSULE PO ×2 (13:27→20:18)
[2024-04-14] MEDS: Tamsulosin HCL 0.4 MG CAPSULE PO (20:18)
[2024-04-14] MEDS: Atorvastatin Calcium 20 MG TABLET PO (20:18)
[2024-04-15 03:10] VITALS: BP 144/62; PULSE 65; RESP 18; TEMP 36.7; O2SAT 94
[2024-04-15 07:34] LABS: Hematocrit 35.8 % (42.0-52.0); Hemoglobin 11.9 g/dl (14.0-18.0); Mean Corpuscular HGB Conc 33.2 g/dl (31.0-36.0); Mean Corpuscular Hemoglobin 26.2 pg (27.0-33.0); Mean Corpuscular Volume 78.7 fL (80.0-98.0); Mean Platelet Volume 9.3 fL (9.4-12.4); Neut%MD 32.9 %; Neutrophils Absolute Auto 0.9 x10*3/uL (2.0-8.3); Platelet Count 183 X10*3/uL (160-400); Red Blood Count 4.55 X10*6/uL (4.60-5.80); WBCANC 2.7 X10*3/uL; White Blood Count 2.7 X10*3/uL (4.8-10.8)
[2024-04-15 07:39] VITALS: BP 142/64; PULSE 69; RESP 20; TEMP 36.7; O2SAT 93
[2024-04-15 07:48] LABS: Anion Gap 11 (12-20); Blood Urea Nitrogen 8 mg/dL (9-16); Calcium 8.9 mg/dL (8.4-10.2); Carbon Dioxide 25 mmol/L (22-29); Chloride 105 mmol/L (96-108); Creatinine Clr Calc Pharmacy 77.5; Estimated Glomerular Filt Rate > 60; Glucose Random 110 mg/dL (60-115); Potassium 3.4 mmol/L (3.3-5.1); Sodium 138 mmol/L (135-145)
[2024-04-15] MEDS: Apixaban 5 MG TABLET PO (09:08)
[2024-04-15] MEDS: Amoxicillin/Potassium Clav 875 MG TABLET PO (09:08)
[2024-04-15] MEDS: Doxycycline Monohydrate 100 MG CAPSULE PO (09:08)
[2024-04-15] MEDS: Fluticasone Propionate Nasal 16 GM SPRAY 1 SPRAY NOSTRIL-B (09:08)
[2024-04-15] MEDS: Metoprolol Tartrate 25 MG TABLET PO (09:08)
[2024-04-15] MEDS: 0.9 % Sodium Chloride Flush 3 ML SYRINGE IVFLUSH (09:28)
[2024-04-15 10:55] VITALS: BP 127/54; PULSE 64; RESP 18; TEMP 36.8; O2SAT 94
--- NOTE | 2024-04-15 12:21 | W.MHC.F2F ---
Service Date Service Date: 04/15/24 Encounter Date of encounter: 04/15/24 Reasons for Services Signs and symptoms assessed: Weakness confusion unable to drive Reason for [facility] [facility]: medication management and teach disease management Reason for physical therapy: therapeutic exercises and gait/transfer training Homebound: Leaving the home is medically contraindicated at this time without the asist of a device and/or another person due th the listed conditions above and below. Reason homebound: unsteady gait / fall risk and weakness related to hospital stay Homebound supporting statement: Homebound due to weakness from prolonged hospitalization in the setting of of pneumonia and immunocompromised state as well as memory impairment and therefore needs the assistance of another person. Certification: Based on the above findings, I certify that this patient is confined to the home and needs intermittent [place] [facility] care, physical therapy and/or speech therapy, or continues to need occupational therapy. The patient is under my care, and I have initiated the establishment of the plan of care. The patient will be followed by a physician who will periodically review the plan of care. Time Spent With Patient Time: Total time managing care of this patient today ____ minutes.
--- NOTE | 2024-04-15 12:24 | PM.DS ---
DS: Providers Provider Date of Service: 04/15/24 Date of admission: 04/06/24 17:02 Primary care physician: Kamaljit Santiago MD Consults: 04/06/24 17:03 Consult to Infectious Diseases Routine Consulting Provider: [facility] Reason for consultation: Pneumonia 04/07/24 18:25 Consult for Sitter Routine Reason for consultation: safety, impulsive 04/08/24 13:50 Consult to Hematology / Oncology Routine Consulting Provider[place] [facility] Reason for consultation: chronic unexplained leukopenia 04/08/24 15:03 Consult to Neurology Routine Consulting Provider: [facility] Reason for consultation: Increasing weakness and diffficulty walking DS: Diagnosis Discharge Diagnosis (1) Acute UTI: Status: Acute DS: Summary Hospital Course Hospital Course: Chief Complaint: sob ,cough 83y/o M with PMH of HTN, HLD, hx CVA, GERD, recurrent UTIs, in addition told that patient was supposed to get treatment for hyperactive thyroid(have not gone for it yet)-patient is poor historian history was taken with the help of his : Patient had respiratory symptoms on last admission stay and went to [facility] where he was diagnosed with pneumonia and was given p.o. antibiotics patient subsequently got generalized weak, still has shortness of breath and productive cough and also feel more confused. Patient tried Z-Fernandez and amoxicillin out patiently did not work as per the -still has symptoms so decided to bring to the hospital. In addition has poor oral intake. Denies any headaches or weakness or numbness or chest pain. Has cough with whitish sputum, denies any sick contacts. Has chronic leukopenia and thrombocytopenia. Chest x-ray shows possible right mid lung pneumonia. CT head and negative. BMP has hyponatremia, TSH is 0.1. ekg-nsr Hospital course: 82M PMH htn, hld, history of CVA. 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 Hospital course complicated by periods of delirium , urinary retention that has necessitated a Cohen catheter. neutropenic sepsis, has history of CCUS (clonal cytopenia of undetermined significance. CXR and CT suggested pneumonia.. Initially treated with IV Vancomycin which was later stopped with no evidence for MrSA. Also was treated with Azithromycin and zosyn form 04/06 to 04/11. Clinically he has made singicance progress no longer requiring oxygen, afebrile. WBC remains low due to above. He will be discharged with Augmentin and Doxycyline for 1 more weak. His cultures have been negative. Delirium/enceaphalopaathy--likely from acute ilness, change in scenery--He required intermittent doses of Zyprexa. He presently very lucid and is pleased with his prgressed, he is now able to carry on normal conversation. 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 His count remains low, despite doses of granix, preesntly WBC is 2.7, and ANC is 0.9 will.. He is advised to follow up with hid oncologist at [facility]. HTN--continue metoprolol paroxysmal afib, h/o CVA. Previously on coumadin but due to iregular levels, this has been changed to eliquis and thus far withno aparent problems BPH--Patient has had urinary retention and had required intermitent catherization, a cohen cath was inserted but failed voding tial and therefore willd ischarge with follow and outpatient follow upw [facility] for vodind trial at a later time. continue Flomax urinary retention, cohen, can try voiding try flomax. history of graves not on meds last TSH 0.18 on 04/08. Last Ft4 within normal Deconditioned, initially was very weak on his feet and but has significantly improved with physical therapy and OT and so they are now recommending home rather short term rehab Time Attestation Discharge Coordination Time (in mins): 45 Quality: Safe Use of Opioids Does Pt have an Active Cancer Diagnosis on the Problem List?: No Quality: Stroke Does the patient have a stroke diagnosis?: No Physical Exam Vital Signs: Vital Signs: Last Vital Signs Temp 98.2 F 04/15/24 10:55 Pulse 64 04/15/24 10:55 Resp 18 04/15/24 10:55 BP 127/54 L 04/15/24 10:55 Pulse Ox 94 04/15/24 10:55 O2 Del Method Room Air 04/15/24 10:55 BMI result Body Mass Index 24.2 DS: Data Data Completed and Pending Labs on day of discharge: Laboratory Results - last 24 hr 04/15/24 06:49 WBC 2.7 L RBC 4.55 L Hgb 11.9 L Hct 35.8 L MCV 78.7 L MCH 26.2 L MCHC 33.2 RDW 14.0 Plt Count 183 MPV 9.3 L Absolute Neuts (auto) 0.9 L Absolute Nucleated RBC 0.000 Nucleated RBC % (auto) 0.0 Sodium 138 Potassium 3.4 Chloride 105 Carbon Dioxide 25 Anion Gap 11 L BUN 8 L Creatinine 0.82 Estim Creat Clear Calc 77.5 Estimated GFR > 60 Random Glucose 110 Calcium 8.9 Discharge Plan Discharge Anticipated Discharge Date/Time: 04/15/24 12:18 Patient Disposition: Home Health Service Discharge Diagnosis: Pneumonia, encephalopathy, UTI, chronic leukopenia. Referrals: [facility] [Outside] - 1 Week Jose Pennington MD [Physician] - 1 Week Kamaljit Santiago MD [Primary Care Provider] - 1 Week Discharge Medications: New Eliquis 5 mg Tablet 5 mg PO BID Qty: 180 0RF doxycycline monohydrate 100 mg Capsule 100 mg PO BID Qty: 10 0RF amoxicillin-pot clavulanate 875-125 mg Tablet 1 tab PO BID Qty: 10 0RF metoprolol tartrate 25 mg Tablet 25 mg PO BID Qty: 180 0RF Protocol: Hold for SBP/HR < HOLD for SBP < : 90 HOLD for HR < : 60 Continued atorvastatin 20 mg tablet 20 mg PO BEDTIME tamsulosin 0.4 mg capsule 0.4 mg PO BEDTIME fluticasone propionate 50 mcg/actuation [place],Suspension 1 spray INTRANASAL DAILY Rx Instructions: administer into each nostril acetaminophen 325 mg Tablet 650 mg PO Q6H PRN (Reason: Pain) (DME) Ultra-Light Rollator Misc See Rx Instructions .Route Qty: 1 0RF Rx Instructions: As directed Discontinued warfarin [Jantoven] 5 mg tablet 5 mg PO SUMOTUWETHSA@1800 warfarin [Jantoven] 5 mg tablet 7.5 mg PO FR@1800 Discharge Orders: Discharge Order (Routine); Ordered 04/15/24 Ordered By: Yan Rogers Diet: Advance to usual diet Activity on Discharge: As tolerated Stand Alone Forms: Patient Portal Discharge page Print Language: Ukrainian Care Plan Goals: Recovery from pneumonia, UTI, encephalopathy, urinary retention. Health Concerns: Chronic leukopenia, pneumonia, encephalopathy, UTI, urinary retention. Plan of Treatment: Take doxycycline and Augmentin as recommended and follow up with your primary care doctor within a week. Please note the Coumadin has been discontinued and replaced with Eliquis 5 mg twice daily. Follow up with urologist for voiding trial in the urologist office--Dr Pennington's office Follow up with your ocologist at [facility] within a week Assessment: See above Discharge Date/Time: 04/15/24 16:07
--- NOTE | 2024-04-15 13:34 | MHC.CM.PN ---
Second IMM 04/15/24, pt has been medically cleared for DC, his will bring him home, and he will have home care services from [facility].
[2024-04-15 15:31] VITALS: BP 124/59; PULSE 64; RESP 20; TEMP 36.4; O2SAT 92
== END 2024-04-15 16:07 | disposition home health service (06) | DRG 871 ==
LOC: HO.ED 16:01 → HO.EDOVER 17:06 → HO.IMC 19:08
PROVIDERS: Internal Medicine; Physician Assistant Medical; Student in an Organized Health Care Education/Training Program; Admitting Provider Internal Medicine; Emergency Provider Emergency Medicine; PCP Family Medicine; Visit Provider Internal Medicine
DX: A41.9 Sepsis, unspecified organism (principal); G92.8 Other toxic encephalopathy; J18.9 Pneumonia, unspecified organism; Z68.43 Body mass index [BMI] 50.0-59.9, adult; I48.0 Paroxysmal atrial fibrillation; E86.0 Dehydration; N40.1 Benign prostatic hyperplasia with lower urinary tract symptoms; E66.01 Morbid (severe) obesity due to excess calories; R33.8 Other retention of urine; R79.1 Abnormal coagulation profile; I10 Essential (primary) hypertension; E05.00 Thyrotoxicosis with diffuse goiter without thyrotoxic crisis or storm; Z66 Do not resuscitate; G62.9 Polyneuropathy, unspecified; D75.9 Disease of blood and blood-forming organs, unspecified; I69.344 Monoplegia of lower limb following cerebral infarction affecting left non-dominant side; D70.9 Neutropenia, unspecified; Z20.822 Contact with and (suspected) exposure to COVID-19; Z87.440 Personal history of urinary (tract) infections; Z79.51 Long term (current) use of inhaled steroids; Z79.899 Other long term (current) drug therapy
CPT/HCPCS: 0241U; 36415; 70450; 70551; 71045; 71275; 80048; 80051; 80053; 80197; 80202; 81001; 82140; 82525; 82565; 82607; 82728; 82746; 82784; 83540; 83605; 83615; 83735; 84145; 84439; 84443; 84484; 85025; 85027; 85048; 85610; 85730; 86334; 87040; 87449; 87493; 87633; 87640; 87641; 87899; 88184; 88185; 93005; 97110; 97112; 97116; 97162; 97166; 97530; 97535; 99285; C1758; J0456; J0696; J1447; J2359; J2405; J2543; J2765; J3370; J3371; J7120

== ENCOUNTER → 2024-04-06 17:02 | Outpatient (BNV) | payer MEDICARE, SELFPAY | PROVIDERS: Admitting Provider Internal Medicine; Emergency Provider Emergency Medicine; PCP Family Medicine; Visit Provider Psychiatry & Neurology Neurology | DX: R26.89 Other abnormalities of gait and mobility (principal); G93.89 Other specified disorders of brain; I67.89 Other cerebrovascular disease | CPT/HCPCS: 99222 ==

== ENCOUNTER → 2024-04-06 17:02 | Outpatient (BNV) | payer MEDICARE, SELFPAY | PROVIDERS: Admitting Provider Internal Medicine; Emergency Provider Emergency Medicine; PCP Family Medicine; Visit Provider Internal Medicine | DX: N39.0 Urinary tract infection, site not specified (principal) | CPT/HCPCS: 99223; 99231; 99232; 99239; G0180 ==

== ENCOUNTER → 2024-04-06 17:02 | Outpatient (BNV) | payer MEDICARE, SELFPAY | PROVIDERS: Admitting Provider Internal Medicine; Emergency Provider Emergency Medicine; PCP Family Medicine; Visit Provider Internal Medicine | DX: J18.9 Pneumonia, unspecified organism (principal); R41.82 Altered mental status, unspecified; D72.819 Decreased white blood cell count, unspecified | CPT/HCPCS: 99222 ==

== ENCOUNTER → 2024-04-06 17:02 | Outpatient (BNV) | payer MEDICARE, SELFPAY | PROVIDERS: Admitting Provider Internal Medicine; Emergency Provider Emergency Medicine; PCP Family Medicine; Visit Provider Internal Medicine | DX: D72.819 Decreased white blood cell count, unspecified (principal) | CPT/HCPCS: 99222; 99231 ==

== ENCOUNTER 2024-05-14 09:23 | Outpatient (AMB) | payer BC, SELFPAY ==
--- NOTE | 2024-05-14 09:59 | A.OFFVIS_ITS ---
Intake Visit Reasons: Voiding trial Intake Note: New Patient presents for initial visit for voiding trial Urology Medications: tamsulosin Blood Thinner: apixaban PVR: 13ml's Coal Getter Required: No Accompanied by: Unknown Allergies No Known Allergies [No Known Allergies*] Allergy (Verified 05/14/24 10:55) N.KMadeleineD.A. Allergy (Unknown, Uncoded 05/14/24 10:55) Unknown Medication List - Last Reconciled 05/14/24 by JULIA Hayden acetaminophen 650 mg PO Q6H PRN apixaban (Eliquis) 5 mg PO BID atorvastatin 20 mg PO BEDTIME fluticasone propionate 50 mcg/actuation 1 spray intranasal DAILY metoprolol tartrate 25 mg See Protocol PO BID tamsulosin 0.4 mg PO BEDTIME walker (Ultra-Light Rollator misc) As directed HPI Comments Details: Hiro is a very pleasant 83-year-old male patient of Dr. Santiago who was accompanied by his at today's office visit. He has a past medical history of recurrent UTIs ( hx of infection w/ actinomyces), graves disease, YEHUDA, GERD, cout, hld, bph. HTN, and CVA. He presents to the office today as a new patient for urinary retention. In discussion with the patient today he reports having seeked emergency room care for approximately 1 month ago at which time he was admitted and treated for pneumonia as well as a urinary tract infection. He reports having been sent home with Cohen catheter and recommendations were made for urology referral for further assessment evaluation. He reports a longstanding history of urinary issues and urinary retention and follows up with [facility] Dr. Nuñez. In office voiding trial performed patient was able to independently void. He reports compliance with Flomax as prescribed. He discusses his longstanding family history of prostate issues with enlargement, urinary retention, and a brother who has prostate cancer. He reports he will follow-up with Dr. Nuñez as he already has established urological care. [facility] Medical History (Updated 05/14/24 @ 11:00 by JULIA Hayden) Urinary retention Social History Household Members: Spouse Housing: Condominium Do you presently have visiting nurse or other home services: No Comment: sitter placed Patient Tobacco Use Status: Never used Tobacco service: No Review of Systems Const All systems reviewed & are unremarkable except as noted in HPI and below Physical Exam Const General: cooperative, healthy appearing, comfortable, no acute distress, well developed, alert and awake Orientation/consciousness: patient oriented x3 Limitations: ambulation with cane HEENT Head: Yes normal to inspection, Yes normocephalic and Yes atraumatic Ears: hearing grossly normal bilaterally Eyes General: appearance normal, both eyes and all related structures Neck Neck: Yes normal visual inspection and Yes trachea midline Chest Chest palpation & inspection: normal inspection of the chest Resp Effort & Inspection: normal respiratory effort and able to speak in complete sentences Cardio Rate: regular rate GI Inspection: Yes normal to inspection General: Yes no CVA tenderness Back/Spine/Pelvis Back: no CVA tenderness Skin General skin exam: no rashes or lesions noted Neuro General: patient oriented x3 Extrem General: Yes normal to inspection Psych Appearance: grossly normal and well kempt Mental Status: mental status grossly normal Speech and movement: Normal speech and movement present and Clear speech present Affect: normal affect Attitude: cooperative Thought process: Normal thought process present Thought content: Normal thought content present Insight: Fair insight present (Psych) Judgement: Fair judgement present (Psych) Office Procedures Bladder/Catheter Procedure Details: Patient here for voiding trial. 120 mL of sterile water instilled through catheter. Patient tolerated well. Then, 16 turkmen cohen catheter 10 mL balloon removed with no problems. Patient urinated about 30 mL into urinal. Then he walked to bathroom and had a bowel movement, unsure if more urination at that time. MA to perform bladder scan. 58417-Oervktneun of Bladder Procedure code (CPT) selection complete Post Void Residual Post Residual Void Post Void Residual (PVR): 95608-Ghal Void Residual by ultrasound Assessment & Plan Assessment & Plan (1) Urinary retention: Code(s): R33.9 - Retention of urine, unspecified Category: Medical (2) Urinary tract infection: Code(s): N39.0 - Urinary tract infection, site not specified Category: Medical Plan In office voiding trial performed PVR 17 mL. We discussed at length potential causes of urinary retention as well as a urinary tract infection. He has establish [facility] where he will continue to follow-up. Discussed, educated, and stressed the importance of seeking medical treatment, calling office, and or follow-up with [facility] if he is unable to urinate and or has lower urinary tract symptoms. Continue Flomax as prescribed. Discussed calling [facility] for follow-up Follow-up p.r.n. Orders: Orders AMB Post Void Residual by ultrasound Today N39.0 - Urinary tract infection, site not specified AMB Bladder/Catheter Procedure Today R33.9 - Retention of urine, unspecified Medications: Discontinued amoxicillin-pot clavulanate 875-125 mg Discontinued Reason: Patient no longer taking 1 tab PO BID 10 tabs 0RF doxycycline monohydrate Discontinued Reason: Patient no longer taking 100 mg PO BID 10 caps 0RF Patient Instructions: The patient had an opportunity to ask questions regarding the treatment plan. All questions were answered. Physical exam, labs, and imaging were discussed and reviewed in detail. As well as risks, benefits, and discussion of treatment choices. No major barriers to understanding were identified. The patient expressed understanding and agreement with the above treatment plan. The patient was made aware they should contact our office by phone for worsening of their current condition, the appearance of new symptoms, or with any questions or concerns. Compliance is encouraged with any medications and follow up testing that is ordered. It is a privilege to be allowed the opportunity to participate in? your urological care.? Again, if you have any questions or concerns If you have any questions or concerns please do not hesitate to contact me. The office is [phone]. This note is constructed using voice recognition software. While every effort has been made to ensure accuracy screening specialist errors may have been included. Yours sincerely, JULIA Hayden Coding Level of Care Code New Pt Level 4 (86248) Diagnoses Urinary retention R33.9 Urinary tract infection N39.0 CPT Codes Bladder/Catheter Procedure - CPT: 67156-Akwjcpylkk of Bladder ([id number]) Post Residual Void - PVR CPT Code: 66040-Wbto Void Residual by ultrasound ([id number]) Time Spent (min) 35
== END 2024-05-14 10:58 | disposition home or self-care (01) ==
LOC: HO.HUSH 09:24
PROVIDERS: PCP Family Medicine; Visit Provider Nurse Practitioner Family
DX: R33.9 Retention of urine, unspecified (principal); N39.0 Urinary tract infection, site not specified
CPT/HCPCS: 51700; 99204

== ENCOUNTER → 2024-05-14 09:23 | Outpatient (BNVA) | payer BC, SELFPAY | PROVIDERS: PCP Family Medicine; Visit Provider Nurse Practitioner Family | DX: R33.9 Retention of urine, unspecified (principal); N39.0 Urinary tract infection, site not specified | CPT/HCPCS: 51700; 51798 ==

== ENCOUNTER → 2024-06-17 09:58 | Outpatient (BNVA) | payer BC, SELFPAY | PROVIDERS: PCP Family Medicine; Visit Provider Nurse Practitioner Family | DX: N39.0 Urinary tract infection, site not specified (principal); R33.9 Retention of urine, unspecified | CPT/HCPCS: 51700; 51798 ==

== ENCOUNTER 2024-08-04 09:25 | Outpatient (AMB) | payer BC, SELFPAY ==
--- NOTE | 2024-08-04 10:01 | A.OFFVIS_ITS ---
Intake Visit Reasons: 6 week follow up Intake Note: Patient is present for 6W F/U Urology Medication:TAMSULOSIN Antibiotic Allergy:NONE Blood Thinner:APIXABAN Television [employer] Photographer Required: No Allergies No Known Allergies [No Known Allergies*] Allergy (Verified 08/04/24 10:03) N.K.Alessandro.A. Allergy (Unknown, Uncoded 08/04/24 10:03) Unknown HPI Comments Details: Hiro is a very pleasant 83-year-old male patient of Dr. Santiago who was accompanied by his at today's office visit. He has a past medical history of recurrent UTIs ( hx of infection w/ actinomyces), graves disease, YEHUDA, GERD, cout, hld, bph. HTN, and CVA. He presents to the office today as a new patient for urinary retention. In discussion with the patient today he reports having seeked emergency room care for approximately 1 month ago at which time he was admitted and treated for pneumonia as well as a urinary tract infection. He reports having been sent home with [place] catheter and recommendations were made for urology referral for further assessment evaluation. He reports a longstanding history of urinary issues and urinary retention and follows up with [facility] Dr. Nuñez. In office voiding trial performed patient was able to independently void. He reports compliance with Flomax as prescribed. He discusses his longstanding family history of prostate issues with enlargement, urinary retention, and a brother who has prostate cancer. He reports he will follow-up with Dr. Nuñez as he already has established urological care. [facility] Medical History (Updated 05/14/24 @ 11:00 by Silvia Wallace [facility]) Urinary retention Social History Household Members: Spouse Housing: Condominium Do you presently have visiting nurse or other home services: No Comment: sitter placed Patient Tobacco Use Status: Never used Tobacco service: No Results AMB Urinalysis, Automated UA Leukoctes 125 Eric/uL Last Edit by SEAN Vargas on 08/04/24 11:08 UA Nitrite Negative Last Edit by SEAN Vargas on 08/04/24 11:08 UA Urobilinogen 0.2 mg/dL Last Edit by SEAN Vargas on 08/04/24 11:0 8 UA Protein 100 mg/dL Last Edit by Reanna Keith CCMA on 08/04/24 11:08 UA pH 6.5 Last Edit by SEAN Vargas on 08/04/24 11:08 UA Blood 200 [place]/uL Last Edit by Reanna Keith CCM on 08/04/24 11:08 UA Specific [place] 1.015 Last Edit by SEAN Vargas on 08/04/24 11: 08 UA Ketone Negative Last Edit by SEAN Vargas on 08/04/24 11:08 UA Bilirubin 0 mg/dL Last Edit by Reanna Keith CCM on 08/04/24 11:08 UA Glucose 0 mg/dL Last Edit by Reanna Keith [facility] on 08/04/24 11:08 Assessment & Plan Assessment & Plan Medications: New bethanechol chloride 50 mg PO BID 30 days 60 tabs 1RF N39.0 - Urinary tract infection, site not specified, R33.9 - Retention of urine, unspecified Coding
== END 2024-08-04 11:06 | disposition home or self-care (01) ==
PROVIDERS: PCP Family Medicine; Visit Provider Urology
DX: Z13.9 Encounter for screening, unspecified (principal)

== ENCOUNTER → 2024-08-04 09:25 | Outpatient (BNVA) | payer BC, SELFPAY | PROVIDERS: PCP Family Medicine; Visit Provider Urology | DX: R33.9 Retention of urine, unspecified (principal); N39.0 Urinary tract infection, site not specified | CPT/HCPCS: 81003 ==

== ENCOUNTER 2024-10-09 09:27 | Outpatient (AMB) | payer BC, SELFPAY ==
--- NOTE | 2024-10-09 09:29 | MHC.OFFVIS ---
Intake Visit Reasons: cysto Intake Note: Patient presents to the office today for a cystoscopy Urology Medication:TAMSULOSIN Antibiotic Allergy:NONE Blood Thinner:APIXABAN Cystoscope: Lot:[id number] Exp:11/20/26 Billet Bed Operator Required: No Allergies No Known Allergies [No Known Allergies*] Allergy (Verified 10/09/24 09:29) N.K.D.A. Allergy (Unknown, Uncoded 10/09/24 09:29) Unknown HPI Comments Details: Hiro is a pleasant male. He is a patient of . He is seen for the following urologic conditions - lower urinary tract symptoms - recurrent urinary tract infection Has been on bethanechol Here for cystoscopy Open bladder neck continue medication He is happy with response Current therapy Flomax plus bethanechol Lower urinary tract symptoms Previous longstanding BPH treated with Dr Nuñez Initially managed with Flomax Episode of retention Urinary tract infection Non documented on record PFSH Medical History Urinary retention Social History Household Members: [facility] Do you presently have visiting nurse or other home services: No Comment: sitter placed Patient Tobacco Use Status: Never used Tobacco service: No Review of Systems Const Denies chills and Denies fever(s) Card Reports no additional complaints and Denies syncope Resp Denies cough GI Denies abdominal pain and Denies heartburn Reports as per HPI and Denies change in libido Neuro Denies syncope Psych Denies change in libido Endo Denies change in libido Physical Exam Const General: cooperative, healthy appearing, comfortable and no acute distress Orientation/consciousness: patient oriented x3 HEENT Face and sinus: Yes normal facial exam Mouth: moist mucous membranes Neck Neck: Yes normal visual inspection, Yes full ROM and Yes trachea midline Chest Chest palpation & inspection: normal inspection of the chest Resp Effort & Inspection: normal respiratory effort, able to speak in complete sentences and no respiratory distress GI Inspection: Yes normal to inspection Back/Spine/Pelvis Cervical Spine: normal cervical lordosis Thoracic/Lumbar Spine: thoracic and lumbar spine normal to inspection Skin General skin exam: no rashes or lesions noted Neuro General: patient oriented x3, gait normal, tone normal and moves all extremities Extrem General: Yes normal to inspection and Yes capillary refill normal Office Procedures Cystoscopy Consent Discussed risk and benefit or proposed procedure with the patient. Information consent for procedure given to the patient. Discussed technical aspects, risks, benefits and alternatives in full. Addressed all of the patient's questions and concerns regarding the procedure. The patient demonstrated knowledge and understanding. They wish to proceed with this procedure. Preparation The patient was prepped in the usual manner. A hogshead mat inspector was present and in the room. Genitalia was prepped with betadine solution in a sterile manner. Lidocaine Jelly 2% was placed into the urethra and 16Fr flexible Olympus cystoscope was inserted into the meatus after adequate lubrication. Procedure Cystoscopy performed using a disposable Urovue digital 16 [place] cystoscope. Meatus circumcised Urethra anterior and posterior urethra normal Prostatic Urethra unremarkable open bladder neck Bladder examination with retroflexion of cystoscope Bladder Orifices normal shape and position Bladder Capacity greater than normal Trabeculations Grade 2 Cellule Formation None Diverticulum Formation None Mucosal Erythema None Bladder Tumor None [id number] DISPOSABLE SCOPE URO-G FLEXIBLE SCOPE Procedure code (CPT) selection complete Office Meds lidocaine HCl 2 % mucosal jelly in applicator Performing Provider: Jose Pennington MD Performing Location: [facility] Administered by: Bianka Vail RN on 10/09/24 10:15 Dose Route Admin Location Dispensed Lot Number Expiration Date NDC Dietitian 10 mL intra-urethral 10 mL nitrofurantoin monohydrate/macrocrystals 100 mg capsule Performing Provider: Jose Pennington MD Performing Location: [facility] Administered by: Bianka Vali RN on 10/09/24 10:15 Dose Route Admin Location Dispensed Lot Number Expiration Date NDC Dietitian 100 mg PO 1 cap Results AMB Urinalysis, Automated UA Leukoctes 125 Eric/uL Last Edit by Liz Newton CMA on 10/09/24 09:55 UA Nitrite Negative Last Edit by Liz Newton CMA on 10/09/24 09:55 UA Urobilinogen 0.2 mg/dL Last Edit by Liz Newton CMA on 10/09/24 09:55 UA Protein 30 mg/dL Last Edit by Liz Newton CMA on 10/09/24 09:55 UA pH 6.0 Last Edit by Liz Newton CMA on 10/09/24 09:55 UA Blood 25 [place]/uL Last Edit by Liz Newton CMA on 10/09/24 09:55 UA Specific [place] 1.015 Last Edit by Liz Newton CMA on 10/09/24 09:55 UA Ketone Negative Last Edit by Liz Newton CMA on 10/09/24 09:55 UA Bilirubin 1 mg/dL Last Edit by Liz Newton CMA on 10/09/24 09:55 UA Glucose 0 mg/dL Last Edit by Liz Newton CMA on 10/09/24 09:55 Results Reviewed Results Reviewed: Laboratory Last Values Urine pH (Auto) 6.0 10/09/24 09:53 Specific [place] (Auto) 1.015 10/09/24 09:53 Urine Protein (Auto) 30 mg/dL 10/09/24 09:53 Glucose (UA)(Auto) 0 mg/dL 10/09/24 09:53 Urine Ketones (Auto) Negative 10/09/24 09:53 Urine Blood (Auto) 25 [place]/uL 10/09/24 09:53 Urine Nitrite (Auto) Negative 10/09/24 09:53 Urine Bilirubin (Auto) 1 mg/dL 10/09/24 09:53 Urine Urobilinogen (Auto) 0.2 mg/dL 10/09/24 09:53 Leukocyte Esterase (Auto) 125 Eric/uL 10/09/24 09:53 Assessment & Plan Assessment & Plan (1) Urinary retention: Code(s): R33.9 - Retention of urine, unspecified Category: Medical (2) Urinary tract infection: Code(s): N39.0 - Urinary tract infection, site not specified Category: Medical (3) Bladder outlet obstruction: Code(s): N32.0 - Bladder-neck obstruction Category: Medical Plan Six-month follow-up PVR office Orders: Orders AMB Urinalysis Automated 10/09/24 R33.9 - Retention of urine, unspecified AMB Cystoscopy 10/09/24 N39.0 - Urinary tract infection, site not specified, R33.9 - Retention of urine, unspecified Medications: Changed From bethanechol chloride 50 mg PO BID 30 days 60 tabs 1RF R33.9 - Retention of urine, unspecified, N39.0 - Urinary tract infection, site not specified To bethanechol chloride 50 mg PO BID 180 tabs 1RF 90 days R33.9 - Retention of urine, unspecified, N39.0 - Urinary tract infection, site not specified From tamsulosin 0.4 mg PO BEDTIME To tamsulosin 0.4 mg PO BEDTIME 90 caps 1RF 90 days Patient Instructions: This note is constructed using voice recognition software. While every effort has been made to ensure accuracy fish packer errors may have been included. Imaging studies, laboratory and physical exam results were discussed and reviewed in detail. No major barriers to patient understanding were identified. An opportunity to ask questions regarding the treatment plan was provided. All questions were answered. The patient expressed understanding and agreement with the above treatment plan. The patient is aware they should contact our office by phone for worsening of their current condition or the appearance of new urologic symptoms. Compliance is encouraged with any medications and followup testing that is ordered. It is a privilege to participate in the urologic care of your patient. If you have any questions or concerns regarding treatment for the above conditions, or other urologic issues, please do not hesitate to contact me. The office telephone contact is [phone]. Sincerely, Dr Jose Pennington MD, [facility] - Urology Compassionate Specialist Care for the Genitourinary System Coding Level of Care Code Est Pt Level 3 (88116) Diagnoses Urinary retention R33.9 Urinary tract infection N39.0 Bladder outlet obstruction N32.0 CPT Codes Cystoscopy - CPT: 84891-Tghkfxsyga ([id number])
== END 2024-10-09 10:55 | disposition home or self-care (01) ==
LOC: HO.HUSH 09:28
PROVIDERS: PCP Family Medicine; Visit Provider Urology
DX: N39.0 Urinary tract infection, site not specified (principal); R33.9 Retention of urine, unspecified
CPT/HCPCS: 52000

== ENCOUNTER → 2024-10-09 09:27 | Outpatient (BNVA) | payer BC, SELFPAY | PROVIDERS: PCP Family Medicine; Visit Provider Urology | DX: R33.9 Retention of urine, unspecified (principal); N39.0 Urinary tract infection, site not specified; N32.0 Bladder-neck obstruction | CPT/HCPCS: 52000; 81003 ==

== ENCOUNTER 2025-04-14 09:08 | Outpatient (AMB) | payer BC, SELFPAY ==
--- NOTE | 2025-04-14 09:28 | MHC.OFFVIS ---
Intake Visit Reasons: 6m/PVR Intake Note: Patient presents to the office today for a 6 mo follow up Urology Medication:TAMSULOSIN,BETHANECHOL Antibiotic Allergy:NONE Blood Thinner:APIXABAN PVR:609MLS Websphere Consultant Required: No Accompanied by: Self / Same As Patient Allergies No Known Allergies (No Known Allergies*) Allergy (Verified 04/14/25 09:29) N.K.D.A. Allergy (Unknown, Uncoded 10/09/24 09:29) Unknown HPI Comments Details: Hiro is a pleasant male. He is a patient of . He is seen for the following urologic conditions - lower urinary tract symptoms - recurrent urinary tract infection Continues with high PVR Normal renal function No infection Six-month follow-up Lower urinary tract symptoms Previous longstanding BPH treated with Dr Nuñez Initially managed with Flomax Episode of retention Cystoscopy open bladder neck On bethanechol for bladder emptying Urinary tract infection Non documented on record PFSH Medical History Urinary retention Social History Household Members: Spouse [facility] Do you presently have visiting nurse or other home services: No Comment: sitter placed Patient Tobacco Use Status: Never used Tobacco service: No Review of Systems Const Denies chills and Denies fever(s) Card Reports no additional complaints and Denies syncope Resp Denies cough GI Denies abdominal pain and Denies heartburn Reports as per HPI and Denies change in libido Neuro Denies syncope Psych Denies change in libido Endo Denies change in libido Physical Exam Const General: cooperative, healthy appearing, comfortable and no acute distress Orientation/consciousness: patient oriented x3 HEENT Face and sinus: Yes normal facial exam Mouth: moist mucous membranes Neck Neck: Yes normal visual inspection, Yes full ROM and Yes trachea midline Chest Chest palpation & inspection: normal inspection of the chest Resp Effort & Inspection: normal respiratory effort, able to speak in complete sentences and no respiratory distress GI Inspection: Yes normal to inspection Back/Spine/Pelvis Cervical Spine: normal cervical lordosis Thoracic/Lumbar Spine: thoracic and lumbar spine normal to inspection Skin General skin exam: no rashes or lesions noted Neuro General: patient oriented x3, gait normal, tone normal and moves all extremities Extrem General: Yes normal to inspection and Yes capillary refill normal Office Procedures Post Void Residual Post Residual Void Post Void Residual (PVR): 609 [id number] Void Residual by ultrasound Results AMB Urinalysis, Automated UA Leukoctes 0 Eric/uL Last Edit by Deniseclotilde Shane, [place] on 04/14/25 12:45 UA Nitrite Negative Last Edit by Denise Acosta, [place] on 04/14/25 12:45 UA Urobilinogen 0.2 mg/dL Last Edit by Denise Shane, [place] on 04/14/25 12:45 UA Protein 15 mg/dL Last Edit by Denise Fortuna, [place] on 04/14/25 12:45 UA pH 6.0 Last Edit by Denise Fortuna, [place] on 04/14/25 12:45 UA Blood 200 [place]/uL Last Edit by Denise Acosta, [place] on 04/14/25 12:45 UA Specific [place] 1.015 Last Edit by Denise Fortuna, [place] on 04/14/25 12:45 UA Ketone Negative Last Edit by Denise Acosta, [place] on 04/14/25 12:45 UA Bilirubin 0 mg/dL Last Edit by Denise Fortuna, [place] on 04/14/25 12:45 UA Glucose 0 mg/dL Last Edit by Denise Fortuna, [place] on 04/14/25 12:45 Results Reviewed Results Reviewed: Laboratory Last Values Urine pH (Auto) 6.0 04/14/25 12:06 Specific [place] (Auto) 1.015 04/14/25 12:06 Urine Protein (Auto) 15 mg/dL 04/14/25 12:06 Glucose (UA)(Auto) 0 mg/dL 04/14/25 12:06 Urine Ketones (Auto) Negative 04/14/25 12:06 Urine Blood (Auto) 200 [place]/uL 04/14/25 12:06 Urine Nitrite (Auto) Negative 04/14/25 12:06 Urine Bilirubin (Auto) 0 mg/dL 04/14/25 12:06 Urine Urobilinogen (Auto) 0.2 mg/dL 04/14/25 12:06 Leukocyte Esterase (Auto) 0 Eric/uL 04/14/25 12:06 Assessment & Plan Assessment & Plan (1) Urinary retention: Code(s): R33.9 - Retention of urine, unspecified Category: Medical (2) Bladder outlet obstruction: Code(s): N32.0 - Bladder-neck obstruction Category: Medical Plan Six-month follow-up Orders: Orders AMB Post Void Residual by ultrasound Today N32.0 - Bladder-neck obstruction, R33.9 - Retention of urine, unspecified AMB Urinalysis Automated Today Z13.9 - Encounter for screening, unspecified Medications: Refilled tamsulosin 0.4 mg PO BEDTIME 90 caps 1RF 90 days N32.0 - Bladder-neck obstruction bethanechol chloride 50 mg PO BID 180 tabs 1RF 90 days N39.0 - Urinary tract infection, site not specified, R33.9 - Retention of urine, unspecified Patient Instructions: This note is constructed using voice recognition software. While every effort has been made to ensure accuracy solid surface fabricator errors may have been included. Imaging studies, laboratory and physical exam results were discussed and reviewed in detail. No major barriers to patient understanding were identified. An opportunity to ask questions regarding the treatment plan was provided. All questions were answered. The patient expressed understanding and agreement with the above treatment plan. The patient is aware they should contact our office by phone for worsening of their current condition or the appearance of new urologic symptoms. Compliance is encouraged with any medications and followup testing that is ordered. It is a privilege to participate in the urologic care of your patient. If you have any questions or concerns regarding treatment for the above conditions, or other urologic issues, please do not hesitate to contact me. The office telephone contact is [phone]. Sincerely, Dr Jose Pennington MD, [facility] - Urology Compassionate Specialist Care for the Genitourinary System Coding Level of Care Code Est Pt Level 3 (96446) Diagnoses Urinary retention R33.9 Bladder outlet obstruction N32.0 CPT Codes Post Residual Void - PVR CPT Code: 22316-Tbiv Void Residual by ultrasound ([id number])
--- OUTSIDE RECORDS SUMMARY | 2025-04-14 09:53 | XMS_ITS | Clinical Summary ---
Author Organization [facility] Address [address] [place] [address] Care Team Providers Care Road Supervisor Of Engines Name Role Phone Kamaljit Santiago MD Primary Care Provider [phone] Allergies Active Allergy Reactions Criticality Noted Date Comments Seasonal 10/04/2021 Medications Medication Sig Dispensed Refills Start Date End Date Status atorvastatin (LIPITOR) tablet 20 mg 0 05/13/2017 Active fluticasone (FLONASE) 50 MCG/ACT nasal spray 0 05/07/2017 Activ e lisinopril (PRINIVIL,ZESTRIL) tablet 10 mg Take 5 mg by mouth daily. 0 04/16/2017 Active warfarin (COUMADIN) 7.5 MG tablet Take 1 tablet (7.5 mg total) by mouth daily. 0 Active colchicine 0.6 MG tablet Take 1 tablet (0.6 mg total) by mouth daily. 0 Active Calcium-Vitamin D 600-200 MG-UNIT per tablet Take 1 tablet by mouth daily. 0 Active SALINE NASAL SPRAY NA spray or apply inside Nose. 0 Active methIMAzole (TAPAZOLE) tablet 5 mgIndications:Grave s disease TAKE ONE TABLET BY MOUTH EVERY DAY 90 tablet 0 01/10/2023 Active Additional Information Patient not taking.Reason: Other, Reported on 02/20/2023 Family History Medical History Relation Name Comments Prostate cancer Brother Thyroid disease Mother Relation Name Status Comments Brother Alive Father Mother Social History Tobacco Use Types Packs/Day Years Used Date Smoking Tobacco: Former Pipe Smokeless Tobacco: Never Alcohol Use Standard Drinks/Week Comments Yes 0 (1 standard drink = 0.6 oz pur e alcohol) rare, social Sex and Gender Information Value Date Recorded Sex Assigned at Male 09/04/2018 10:10 AM EST Gender Identity Not on file Sexual Orientation Not on file Job Start Date Occupation Industry Not on file Not on file Not on file Last Filed Vital Signs Vital Sign Reading Time Taken Comments Blood Pressure 140/75 02/20/2023 10:41 AM EDT Pulse 94 02/20/2023 10:41 AM EDT Temperature 36.5 C (97.7 F) 10/04/2021 2:25 PM EDT Respiratory Rate - - Oxygen Saturation - - Inhaled Oxygen Concentration - - Weight 85.5 kg (188 lb 9.6 oz) 10/04/2021 2:25 P M EDT Height 180.3 cm (5' 11 ) 09/15/2019 11:17 AM EST Body Mass Index 26.3 09/15/2019 11:17 AM EST Plan of Treatment Health Maintenance Due Date Last Done Comments Depression Screening 1954 Preventative Health Evaluation 1960 Shingrix-Zoster Vaccine (1 of 2) 1992 Fall Risk Assessment 11/12/2007 RSV Adult > 60+ Yrs or (1 - 1-dose 75+ series) 2017 DTap / Tdap / Td (2 - Td or Tdap) 05/06/2022 05/06/2012 COVID-19 Vaccine ( season) 2025 05/30/2022, 12/08/2021, 04/26/2021, Additional history exists Influenza Vaccine (#1) 2025 2, 04/26/2021, 04/05/2020, Additional history exists Pneumococcal Vaccine Completed 09/21/2016, 03/28/20 15 Hepatitis B Vaccines Aged Out No long er eligible based on patient's age to complete this topic RSV Ped < 20 months Aged Out No longe r eligible based on patient's age to complete this topic Care Teams Road Supervisor Of Engines Relationship Specialty Start Date End Date Kamaljit Santiago MD [facility] [address] [place] [id number] PCP - General Family Medicine 04/08/20
--- OUTSIDE RECORDS SUMMARY | 2025-04-14 09:53 | XMS_ITS ---
Author Name [facility] Organization Unknown Encounters Encounter Type Encounter Reason Primary Diagnosis Location Date Ambulatory Neutropenia, unspecified Neutropenia, unspecified [facility] [place] 02/20/2023 Care Team Organization Name Specialty Phone Email Start Date End Da te [facility] [place] SOFIA BUCHANAN Primary Care 02/20/20232022 [facility] [place] 02/20/2023
== END 2025-04-14 10:15 | disposition home or self-care (01) ==
LOC: HO.HUSH 09:09
PROVIDERS: PCP Family Medicine; Visit Provider Urology
DX: R33.9 Retention of urine, unspecified (principal); N32.0 Bladder-neck obstruction; Z13.9 Encounter for screening, unspecified
CPT/HCPCS: 99213

== ENCOUNTER → 2025-04-14 09:08 | Outpatient (BNVA) | payer BC, SELFPAY | PROVIDERS: PCP Family Medicine; Visit Provider Urology | DX: N32.0 Bladder-neck obstruction (principal); R33.9 Retention of urine, unspecified; Z13.9 Encounter for screening, unspecified | CPT/HCPCS: 51798; 81003 ==